=== PATIENT | male | born 1940 | race Caucasian/White ===

== ENCOUNTER 2018-12-31 22:17 | Inpatient (IN) | payer MEDICARE, OTHER ==
[2018-12-31 23:52] LABS: ABS Basophils 0.1 10^3/ul (0-0.2); ABS Eosinophils 0.1 10^3/ul (0-0.6); ABS Lymphocytes 1.8 10^3/ul (1.0-4.8); ABS Neutrophils 11.4 10^3/ul (1.5-7.7); ABS Nucleated RBC 0 10^3/ul; Eosinophil % 0.4 %; Hematocrit 44 % (36-46); Hemoglobin 14.8 g/dL (14.0-18.0); Lymphocyte % 12.8 %; Mean Corpuscular HGB Conc 33 g/dL (31-36); Mean Corpuscular Hemoglobin 30 pg (27-31); Mean Corpuscular Volume 91 fL (80-94); Mean Platelet Volume 8.3 fL (7.4-10.4); Nucleated Red Blood Cells % 0; Platelet Count 180 10^3/uL (150-450); Red Blood Count 4.89 10^6 /uL (4.18-5.48); Red Cell Distribution Width 15 % (10.5-15); White Blood Count 14.4 10^3/uL (3.5-10.8)
[2019-01-01 00:14] LABS: Albumin 4.4 g/dL (3.2-5.2); Albumin/Globulin Ratio 1.4 (1-3); BUN/Creatinine Ratio 20.4 (8-20); Calcium 9.5 mg/dL (8.6-10.3); EGFR Non-African American 70.2 (>60); Globulin 3.2 g/dL (2-4); Potassium 3.4 mmol/L (3.5-5.0); Total Bilirubin 1.3 mg/dL (0.2-1.0); Total Protein 7.6 g/dL (6.4-8.9)
[2019-01-01 00:15] LABS: Troponin I 0.01 ng/mL (<0.04)
[2019-01-01] MEDS ORDERED: NS 0.9% 1000 ML** 1,000 ML IV.FLUID IV ONE (01:11)
[2019-01-01] MEDS ORDERED: Piperacillin/Tazobac ADVAN(*) 3.375 GM in NS 0.9% 100 ML* 100 ML IVPB ONE ×2 (01:12→10:00)
--- NOTE | 2019-01-01 01:16 | ED ---
Respiratory - HPI Summary HPI Summary: This patient is a 78 year old male presenting to [facility] with a chief complaint of respiratory problems and falls since 2 days ago. His states he sounds congested and is worried he has pneumonia. He has Parkinsons disease and states he has fallen 5 times in the last 2 days. The patient reports coughing. Patients states he feels warm and may have a potential fever. - History of Current Complaint Chief Complaint: EDUpperRespComplaint Stated Complaint: FALL PER EMS Time Seen by Provider: 01/01/19 01:00 Hx Obtained From: Patient, Family/Finishing Inspector Pain Intensity: 0 Character: Cough (Nonproductive) Associated Signs and Symptoms: Nasal Congestion - Allergy/Home Medications Allergies/Adverse Reactions: Allergies Allergy/AdvReac Type Severity Reaction Status Date / Time Adhesive Tape [Paper Tape] Allergy Rash Verified 12/31/18 22:28 cephalexin [From Keflex] Allergy Rash Verified 12/31/18 22:28 levofloxacin [From Levaquin] Allergy Rash Verified 12/31/18 22:28 PMH/Surg Hx/FS Hx/Imm Hx Endocrine/Hematology History: Reports: Hx Diabetes - TYPE 2 Cardiovascular History: Reports: Hx Hypercholesterolemia, Hx Hypertension Denies: Hx Angina, Hx Coronary Artery Disease, Hx Myocardial Infarction, Hx Valvular Heart Disease Respiratory History: Denies: Hx Asthma, Hx Chronic Obstructive Pulmonary Disease (COPD) History: Denies: Hx Renal Disease - Surgical History Surgery Procedure, Year, and Place: CERVICAL STENOSIS SX Infectious Disease History: No Infectious Disease History: Denies: Traveled Outside the [place] in Last 30 Days - Family History Known Family History: Negative: Blood Disorder - Social History Alcohol Use: None Substance Use Type: Reports: None Smoking Status (MU): Former Smoker Type: Cigarettes Review of Systems Positive: Fever Positive: Nasal Discharge Positive: Cough All Other Systems Reviewed And Are Negative: Yes Physical Exam - Summary Physical Exam Summary: VITAL SIGNS: Reviewed. GENERAL: Patient is a well-developed and nourished MALE who is lying comfortable in the stretcher. Patient is not in any acute respiratory distress. HEAD AND FACE: No signs of trauma. No ecchymosis, hematomas or skull depressions. No sinus tenderness. EYES: PERRLA, EOMI x 2, No injected conjunctiva, no nystagmus. EARS: Hearing grossly intact. Ear canals and tympanic membranes are within normal limits. MOUTH: Oropharynx within normal limits. NECK: Supple, trachea is midline, no adenopathy, no JVD, no carotid bruit, no c- spine tenderness, neck with full ROM. CHEST: Symmetric, no tenderness at palpation LUNGS: Clear to auscultation bilaterally. No wheezing or crackles. Decreased breath sounds bilaterally. CVS: Regular rate and rhythm, S1 and S2 present, no murmurs or gallops appreciated. ABDOMEN: Soft, non-tender. No signs of distention. No rebound no guarding, and no masses palpated. Bowel sounds are normal. EXTREMITIES: FROM in all major joints, no edema, no cyanosis or clubbing. Static tremors in both hands. NEURO: Alert and oriented x 3. No acute neurological deficits. Speech is normal and follows commands. SKIN: Dry and warm Triage Information Reviewed: Yes Vital Signs On Initial Exam: Initial Vitals Temp Pulse Resp BP Pulse Ox 99.3 F 84 16 107/91 90 12/31/18 22:25 12/31/18 22:25 12/31/18 22:25 12/31/18 22:25 12/31/18 22:25 Vital Signs Reviewed: Yes Diagnostics - Vital Signs Vital Signs Temp Pulse Resp BP Pulse Ox 12/31/18 22:25 99.3 F 84 16 107/91 90 - Laboratory Lab Results: Lab Results 12/31/18 12/31/18 12/31/18 Range/Units 23:44 23:44 23:44 WBC 14.4 H (3.5-10.8) 10^3/uL RBC 4.89 (4.18-5.48) 10^6 /uL Hgb 14.8 (14.0-18.0) g/dL Hct 44 (36-46) % MCV 91 (80-94) fL MCH 30 (27-31) pg MCHC 33 (31-36) g/dL RDW 15 (10.5-15) % Plt Count 180 (150-450) 10^3/uL MPV 8.3 (7.4-10.4) fL Neut % (Auto) 79.0 % Lymph % (Auto) 12.8 % [place] % (Auto) 7.0 % Eos % (Auto) 0.4 % Baso % (Auto) 0.8 % Absolute Neuts (auto) 11.4 H (1.5-7.7) 10^3/ul Absolute Lymphs (auto) 1.8 (1.0-4.8) 10^3/ul Absolute Monos (auto) 1.0 H (0-0.8) 10^3/ul Absolute Eos (auto) 0.1 (0-0.6) 10^3/ul Absolute Basos (auto) 0.1 (0-0.2) 10^3/ul Absolute Nucleated RBC 0 10^3/ul Nucleated RBC % 0 Sodium 138 (135-145) mmol/L Potassium 3.4 L (3.5-5.0) mmol/L Chloride 101 (101-111) mmol/L Carbon Dioxide 27 (22-32) mmol/L Anion Gap 10 (2-11) mmol/L BUN 21 (6-24) mg/dL Creatinine 1.03 (0.67-1.17) mg/dL Est GFR ( Amer) 85.0 (>60) Est GFR (Non-Af Amer) 70.2 (>60) BUN/Creatinine Ratio 20.4 H (8-20) Glucose 235 H (70-100) mg/dL Lactic Acid 2.4 H* (0.5-2.0) mmol/L Calcium 9.5 (8.6-10.3) mg/dL Total Bilirubin 1.30 H (0.2-1.0) mg/dL AST 26 (13-39) U/L ALT 16 (7-52) U/L Alkaline Phosphatase 42 (34-104) U/L Troponin I 0.01 (<0.04) ng/mL B-Natriuretic Peptide (<=100) pg/mL Total Protein 7.6 (6.4-8.9) g/dL Albumin 4.4 (3.2-5.2) g/dL Globulin 3.2 (2-4) g/dL Albumin/Globulin Ratio 1.4 (1-3) 12/31/18 Range/Units 23:44 WBC (3.5-10.8) 10^3/uL RBC (4.18-5.48) 10^6 /uL Hgb (14.0-18.0) g/dL Hct (36-46) % MCV (80-94) fL MCH (27-31) pg MCHC (31-36) g/dL RDW (10.5-15) % Plt Count (150-450) 10^3/uL MPV (7.4-10.4) fL Neut % (Auto) % Lymph % (Auto) % [place] % (Auto) % Eos % (Auto) % Baso % (Auto) % Absolute Neuts (auto) (1.5-7.7) 10^3/ul Absolute Lymphs (auto) (1.0-4.8) 10^3/ul Absolute Monos (auto) (0-0.8) 10^3/ul Absolute Eos (auto) (0-0.6) 10^3/ul Absolute Basos (auto) (0-0.2) 10^3/ul Absolute Nucleated RBC 10^3/ul Nucleated RBC % Sodium (135-145) mmol/L Potassium (3.5-5.0) mmol/L Chloride (101-111) mmol/L Carbon Dioxide (22-32) mmol/L Anion Gap (2-11) mmol/L BUN (6-24) mg/dL Creatinine (0.67-1.17) mg/dL Est GFR ( Amer) (>60) Est GFR (Non-Af Amer) (>60) BUN/Creatinine Ratio (8-20) Glucose (70-100) mg/dL Lactic Acid (0.5-2.0) mmol/L Calcium (8.6-10.3) mg/dL Total Bilirubin (0.2-1.0) mg/dL AST (13-39) U/L ALT (7-52) U/L Alkaline Phosphatase (34-104) U/L Troponin I (<0.04) ng/mL B-Natriuretic Peptide 39 (<=100) pg/mL Total Protein (6.4-8.9) g/dL Albumin (3.2-5.2) g/dL Globulin (2-4) g/dL Albumin/Globulin Ratio (1-3) Result Diagrams: 12/31/18 23:44 12/31/18 23:44 Lab Statement: Any lab studies that have been ordered have been reviewed, and results considered in the medical decision making process. - Radiology CXR Radiology Interpretation Completed By: ED Physician Summary of Radiographic Findings: No acute process. Pending official radiologist report. - CT CTA Chest/Thorax CT Interpretation Completed By: Radiologist Summary of CT Findings: 1. No pulmonary embolus 2. Old granulomatous disease. 3. Coronary artery calcifications. 4. Fatty infiltration of the liver. 5. Cholelithiasis. 6. Status post cervical spine fusion surgery. ED Provider has reviewed this report. - EKG 0141 Cardiac Rate: NL - 78 BPM EKG Rhythm: Sinus Rhythm ST Segment: Normal Summary of EKG Findings: Right bundle branch block. Disposition - Course Course Of Treatment: This patient is a 78 year old male presenting to [facility] with a chief complaint of respiratory problems and falls since 2 days ago. His CTA chest was remarkable for pneumonia. Care was discussed with Dr. Cee and he agreed to admit the patient. This plan was discussed with the patient and he was agreeable with this plan. - Diagnoses Provider Diagnoses: Pneumonia - Physician Notifications Discussed Care Of Patient With: Narinder Cee - Hospitalist Time Discussed With Above Provider: 03:15 Instructed by Provider To: Admit As Inpatient Discharge - Sign-Out/Discharge Documenting (check all that apply): Patient Departure - Admission - Discharge Plan Condition: Stable Disposition: ADMITTED TO [facility] Referrals: Michael De Los Santos MD [Primary Care Provider] - - Attestation Statements Document Initiated by Scribe: Yes Documenting Scribe: Narinder Hinojosa Provider For Whom Jie is Documenting (Include Credential): Madeline Boateng MD Scribe Attestation: Narinder Ty scribed for Madeline Boateng MD on 01/01/19 at 0322. Status of Scribe Document: Ready
[2019-01-01 01:54] LABS: Activated Partial Thrombo Time 33.2 seconds (26.0-36.3)
[2019-01-01 02:00] LABS: C Reactive Protein 100.41 mg/L (<8.01)
[2019-01-01] MEDS ORDERED: Iodixanol* (CONTRAST) 320 MG/ML 100 ML SDV IV ONE (02:01)
[2019-01-01 02:03] LABS: Troponin I 0.01 ng/mL (<0.04)
[2019-01-01 03:27] LABS: Influenza A Molecular NEGATIVE (Negative); Influenza B Molecular NEGATIVE (Negative)
[2019-01-01 03:33] LABS: Urine Appearance Clear; Urine Bacteria Absent (Absent); Urine Bilirubin Negative (Negative); Urine Blood 1+ (Negative); Urine Color Yellow; Urine Glucose 2+(150 mg/dL) (Negative); Urine Ketones Trace (Negative); Urine Nitrite Negative (Negative); Urine Protein 1+(30 mg/dL) (Negative); Urine Red Blood Cell Absent (Absent); Urine Specific Gravity 1.038 (1.010-1.030); Urine Urobilinogen Negative (Negative); Urine White Blood Cell Absent (Absent)
[2019-01-01] MEDS ORDERED: NS 0.9% 1000 ML** 1,000 ML IV SCH (04:45)
[2019-01-01] MEDS ORDERED: Acetaminophen TAB* 325 MG PO PRN (04:49)
[2019-01-01] MEDS ORDERED: Ondansetron INJ* 2 MG/ML VIAL IV PRN (04:49)
[2019-01-01] MEDS ORDERED: Zosyn per Pharmacy* NOTE FOLLOW UP SCH (05:00)
[2019-01-01 05:25] LABS: ABS Basophils 0.1 10^3/ul (0-0.2); ABS Eosinophils 0.1 10^3/ul (0-0.6); ABS Lymphocytes 2.9 10^3/ul (1.0-4.8); ABS Monocytes 1.1 10^3/ul (0-0.8); ABS Neutrophils 7.5 10^3/ul (1.5-7.7); ABS Nucleated RBC 0 10^3/ul; Hematocrit 37 % (36-46); Hemoglobin 12.4 g/dL (14.0-18.0); Lymphocyte % 24.6 %; Mean Corpuscular HGB Conc 33 g/dL (31-36); Mean Corpuscular Hemoglobin 30 pg (27-31); Mean Corpuscular Volume 90 fL (80-94); Mean Platelet Volume 8.3 fL (7.4-10.4); Nucleated Red Blood Cells % 0.1; Platelet Count 140 10^3/uL (150-450); Red Blood Count 4.14 10^6 /uL (4.18-5.48); Red Cell Distribution Width 15 % (10.5-15); White Blood Count 11.7 10^3/uL (3.5-10.8)
[2019-01-01 05:41] LABS: BUN/Creatinine Ratio 21.1 (8-20); Calcium 8.3 mg/dL (8.6-10.3); EGFR African American 99.3 (>60)
[2019-01-01 05:47] LABS: CKMB ng/mL 4.5 ng/mL (0.6-6.3)
--- NOTE | 2019-01-01 07:10 | PN ---
Hospitalist Progress Note Date of Service: 01/01/[address] of head non-contrast for reported R. facial droop and pt report of R-sided weakness.
[2019-01-01] MEDS: RASAGILINE 0.5 MG PO SCH (08:05)
[2019-01-01] MEDS: LEVODOPA PO SCH ×3 (08:05→22:31)
[2019-01-01] MEDS: CARBIDOPA PO SCH ×3 (08:05→22:31)
[2019-01-01] MEDS: ZOSYN 3.375 GM Q8H per EXTENDED INFUSION IVPB SCH ×6 (08:10→22:40)
[2019-01-01] MEDS: amLODIPine TAB* 5 MG PO SCH (08:11)
[2019-01-01] MEDS: metFORMIN* 500 MG TAB PO SCH ×3 (08:11→16:58)
[2019-01-01] MEDS: Escitalopram * 10 MG TAB PO SCH (08:11)
[2019-01-01] MEDS: Enoxaparin(*) 40 MG/0.4 ML SYR SUBCUT SCH (08:12)
[2019-01-01] MEDS ORDERED: Hydrochlorothiazide TAB* 25 MG PO SCH (09:00)
[2019-01-01] MEDS: KCL 20 MEQ/100 ML IVPREMIX* 20 MEQ/100 ML BAG IV SCH ×3 (10:30→16:58)
--- NOTE | 2019-01-01 10:50 | HP ---
ADMISSION HISTORY AND PHYSICAL: DATE OF ADMISSION: 01/01/19 PRIMARY CARE PROVIDER: Dr. De Los Santos. HEALTHCARE PROXY: His . SOURCE OF INFORMATION: History obtained from interview with the patient, his , and his daughter. RELIABILITY: Good. CHIEF COMPLAINT: Weakness and falls. HISTORY OF PRESENT ILLNESS: This is a 78-year-old man with past medical history of Parkinson disorder who had been in his usual state of health until approximately 3 days prior, started having increased frequencies of falls and difficulty standing up after his falls. While he does have falls at baseline, a large notable change was that after falling to the floor, he was unable to stand up frequently and only able to stand with help from his . Over the last 3 days to 1 week, he has had increasing congestion, subjective fevers as well as cough that has been nonproductive for at least 3 days. He denies any nausea or vomiting. He has maintained a good appetite without lightheadedness, chest pain, shortness of breath, diarrhea, symptoms, although they have noted that his urine has been darker than usual. At baseline, he has not had any dyspnea. There have been no measured temperatures at home and he had no prolonged period of time down on the floor. PAST MEDICAL HISTORY: Includes: 1. Type 2 diabetes. 2. Permanent pacemaker secondary to Mobitz type II. 3. Hypertension. 4. Hyperlipidemia. 5. History of prostate cancer, status post radical prostatectomy. 6. Parkinson disease. 7. Unknown cervical surgery with cage. HOME MEDICATIONS: Reviewed from the patient's home medication list brought with him: 1. Metformin 500 mg 3 times a day. 2. Carbidopa/levodopa 25/100 two tabs 3 times a day. 3. Azilect 0.5 mg daily. 4. Hydrochlorothiazide 25 mg daily. 5. Escitalopram 10 mg daily. 6. Amlodipine 5 mg daily. 7. Lisinopril 40 mg daily. 8. Pravastatin 40 mg daily. ALLERGIES: To ADHESIVE TAPE, CEPHALEXIN, and LEVOFLOXACIN. FAMILY HISTORY: Unknown by the patient. SOCIAL HISTORY: Smoked for at least 20 years, quit in 2003. Very rare alcohol consumption. 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 REVIEW OF SYSTEMS: As per HPI; otherwise, all other systems are negative. PHYSICAL EXAMINATION GENERAL: Sitting up in bed, interactive, pleasant, in no apparent distress. VITAL SIGNS: In the emergency room, 107/91, heart rate is 84, respiratory rate is 16, he is 90% on room air, T-max 99.3. HEENT: Oropharynx is clear. He has moist mucous membranes. Sclerae are anicteric. LUNGS: His lungs have rales in his right base as well as in the left base extending up one-half of the way to the apex on the left. HEART: He has regular rate and rhythm without murmurs, rubs, or gallops. ABDOMEN: His abdomen is soft and nontender, but does appear distended. Positive bowel sounds. EXTREMITIES: Warm and well perfused without clubbing, cyanosis, or edema. NEUROLOGIC: He is alert and oriented x3. His cranial nerves are intact. He does have an apparent right facial droop which is noted to be chronic from his parents and does correct with smiling. He has no apparent anxiety, agitation, or depression. DIAGNOSTIC STUDIES AND LABORATORY DATA: Labs reviewed. Notable for lactic acid 2.4, decreased to 2.1 after 1 L of fluid. Total CK is 518. CRP 100. Glucose noted to be 235. White blood cell count is 14.4, 79% neutrophils. His urine is concentrated with protein, ketones, and blood. Negative flu. Data reviewed. CTA of his chest and thorax, impression: Increased haziness in the dependent portions of the lower lobes suggesting dependent congestion. ASSESSMENT AND PLAN: This is a 78-year-old man with past medical history of Parkinson disease, presenting with increased weakness and falls over the last several days in conjunction with cough and subjective fevers. 1. Increased weakness. Concern for pneumonia. I disagree with interpretation of the CAT scan. I am more concerned for left lower pneumonia in conjunction with rales auscultated on clinical exam and history of increased cough and weakness. Received Zosyn in the emergency room. I will continue Zosyn secondary to his allergies to both CEPHALOSPORINS and FLUOROQUINOLONES. Administer another liter of normal saline 150 cc per hour. Check Strep pneumo and Legionella urine antigens. 2. Lactic acidosis. Suspect in the setting of above. Repeat lactic acid. Continue fluids as indicated above. Additional fluids to be determined based on repeat lactic acid. 3. Rhabdomyolysis. Suspect in the setting of recurrent falls. Currently, not in dangerous range; however, repeat lactic acid check. 4. Diabetes. Continue home metformin. Add on hemoglobin A1c to assess baseline. Currently, I do not order standing fingerstick glucose checking; can add based on average home value or fasting with BMP. 5. Distended abdomen. Check abdomen 2 views to assess. 6. Parkinson's. Continue home Sinemet. Add on PT therapy, especially in the setting of increased weakness with acute illness. 7. Hypertension. Holding hydrochlorothiazide and lisinopril in the setting of lower blood pressure in the setting of infection. Restart when able. 8. Hyperlipidemia. Continue home medication with therapeutic exchange for atorvastatin. 9. DVT prophylaxis. Lovenox. [id number]/[facility] #: [id number] CHEL[place]
--- NOTE | 2019-01-01 14:07 | PN ---
Subjective Date of Service: 01/01/19 Interval History: Pt states that he feels better today. Family is at bedside and fill in information. Pt presented with increased falling. Family states that pt's legs would just give out. He is unable to lift himself from the floor, which is not uncommon, and is no longer able to help him back to his feet. Family also note that pt unable to lift self up from chair and stand. He has an increased productive cough and increased sleeping, although pt denies fatigue. Family reported dark urine yesterday, but urine has returned to normal color today. Pt denies chills , sweats, fatigue. Family state that patient rarely complains about anything and is often dishonest with answers, answering questions to satisfy person asking. It is noted that pt appears to have facial droop on L side. Family asked about this and state that he has had this for years. They are unsure when he developed this. Family and pt state that there is no focal neurological deficits, loss of sensation or muscle control to any other area of body. Pt appears to have a generalized weakness. Objective Active Medications: Acetaminophen (Tylenol Tab*) 650 mg PO Q4H PRN Amlodipine Besylate (Norvasc Tab*) 5 mg PO DAILY RAYMUNDO Carbidopa/Levodopa (Carbidopa-Levo Er 25-100 Tab) 2 tab PO TID RAYMUNDO Enoxaparin Sodium (Lovenox(*)) 40 mg SUBCUT Q24H RAYMUNDO Escitalopram Oxalate (Lexapro *) 10 mg PO DAILY RAYMUNDO Piperacillin Sod/Tazobactam (Sod 3.375 gm/ Sodium Chloride) 100 mls @ 25 mls/ hr IVPB Q8H RAYMUNDO Potassium Chloride (Potassium Chloride 20 Meq/100 Ml Ivpremix*) 20 meq in 100 mls @ 50 mls/hr IV Q2H RAYMUNDO Metformin HCl (Glucophage*) 500 mg PO 0800,1200,1700 RAYMUNDO Ondansetron HCl (Zofran Inj*) 4 mg IV Q4H PRN Pharmacy Consult (Zosyn Per Pharmacy*) 1 note FOLLOW UP .ZOSYN PER PHARMACY RAYMUNDO Pravastatin Sodium (Pravachol (Nf)) 10 mg PO 1700 RAYMUNDO Rasagiline (Azilect (Nf)) 0.5 mg PO DAILY RAYMUNDO Vital Signs: Temp Pulse Resp BP Pulse Ox 97.6 F 91 16 129/67 96 04/14/19 15:27 01/01/19 15:27 01/01/19 15:27 01/01/19 15:27 01/01/19 15:27 Oxygen Devices in Use Now: None Appearance: Pt is sitting in chair resting. Family is at side. He is cooperative and pleasant and appears to be in no acute distress. Eyes: No Scleral Icterus, PERRLA Ears/Nose/Mouth/Throat: Clear Oropharnyx, Mucous Membranes Moist, - - Poor dentition. Neck: NL Appearance and Movements; NL JVP, Trachea Midline Respiratory: Symmetrical Chest Expansion and Respiratory Effort, - - Crackles at L base; lung sounds distant on L. R CTA. Cardiovascular: RRR, - - Systolic murmur Extremities: No Clubbing, Cyanosis, - - B/l trace LE edema Neurological: Alert and Oriented x 3 Result Diagrams: 01/01/19 05:14 01/01/19 05:14 Additional Lab and Data: Lab Results 12/31/18 12/31/18 12/31/18 Range/Units 23:44 23:44 23:44 WBC 14.4 H (3.5-10.8) 10^3/uL RBC 4.89 (4.18-5.48) 10^6 /uL Hgb 14.8 (14.0-18.0) g/dL Hct 44 (36-46) % MCV 91 (80-94) fL MCH 30 (27-31) pg MCHC 33 (31-36) g/dL RDW 15 (10.5-15) % Plt Count 180 (150-450) 10^3/uL MPV 8.3 (7.4-10.4) fL Neut % (Auto) 79.0 % Lymph % (Auto) 12.8 % [place] % (Auto) 7.0 % Eos % (Auto) 0.4 % Baso % (Auto) 0.8 % Absolute Neuts (auto) 11.4 H (1.5-7.7) 10^3/ul Absolute Lymphs (auto) 1.8 (1.0-4.8) 10^3/ul Absolute Monos (auto) 1.0 H (0-0.8) 10^3/ul Absolute Eos (auto) 0.1 (0-0.6) 10^3/ul Absolute Basos (auto) 0.1 (0-0.2) 10^3/ul Absolute Nucleated RBC 0 10^3/ul Nucleated RBC % 0 Sodium 138 (135-145) mmol/L Potassium 3.4 L (3.5-5.0) mmol/L Chloride 101 (101-111) mmol/L Carbon Dioxide 27 (22-32) mmol/L Anion Gap 10 (2-11) mmol/L BUN 21 (6-24) mg/dL Creatinine 1.03 (0.67-1.17) mg/dL Est GFR ( Amer) 85.0 (>60) Est GFR (Non-Af Amer) 70.2 (>60) BUN/Creatinine Ratio 20.4 H (8-20) Glucose 235 H (70-100) mg/dL Lactic Acid 2.4 H* (0.5-2.0) mmol/L Calcium 9.5 (8.6-10.3) mg/dL Total Bilirubin 1.30 H (0.2-1.0) mg/dL AST 26 (13-39) U/L ALT 16 (7-52) U/L Alkaline Phosphatase 42 (34-104) U/L Troponin I 0.01 (<0.04) ng/mL B-Natriuretic Peptide (<=100) pg/mL Total Protein 7.6 (6.4-8.9) g/dL Albumin 4.4 (3.2-5.2) g/dL Globulin 3.2 (2-4) g/dL Albumin/Globulin Ratio 1.4 (1-3) 12/31/18 Range/Units 23:44 WBC (3.5-10.8) 10^3/uL RBC (4.18-5.48) 10^6 /uL Hgb (14.0-18.0) g/dL Hct (36-46) % MCV (80-94) fL MCH (27-31) pg MCHC (31-36) g/dL RDW (10.5-15) % Plt Count (150-450) 10^3/uL MPV (7.4-10.4) fL Neut % (Auto) % Lymph % (Auto) % [place] % (Auto) % Eos % (Auto) % Baso % (Auto) % Absolute Neuts (auto) (1.5-7.7) 10^3/ul Absolute Lymphs (auto) (1.0-4.8) 10^3/ul Absolute Monos (auto) (0-0.8) 10^3/ul Absolute Eos (auto) (0-0.6) 10^3/ul Absolute Basos (auto) (0-0.2) 10^3/ul Absolute Nucleated RBC 10^3/ul Nucleated RBC % Sodium (135-145) mmol/L Potassium (3.5-5.0) mmol/L Chloride (101-111) mmol/L Carbon Dioxide (22-32) mmol/L Anion Gap (2-11) mmol/L BUN (6-24) mg/dL Creatinine (0.67-1.17) mg/dL Est GFR ( Amer) (>60) Est GFR (Non-Af Amer) (>60) BUN/Creatinine Ratio (8-20) Glucose (70-100) mg/dL Lactic Acid (0.5-2.0) mmol/L Calcium (8.6-10.3) mg/dL Total Bilirubin (0.2-1.0) mg/dL AST (13-39) U/L ALT (7-52) U/L Alkaline Phosphatase (34-104) U/L Troponin I (<0.04) ng/mL B-Natriuretic Peptide 39 (<=100) pg/mL Total Protein (6.4-8.9) g/dL Albumin (3.2-5.2) g/dL Globulin (2-4) g/dL Albumin/Globulin Ratio (1-3) Microbiology and Other Data: Microbiology 01/01/19 02:50 Legionella Urinary Antigen - Final Urine Negative Legionella Antigen Streptococcus pneumoniae Ag Screen - Final Negative S. pneumo Antigen Assess/Plan/Problems-Billing Assessment: 78 yom with PMHx DMII, HTN, HLD, PPM d/t Mobitz II, Parkinson's who presents with generalized weakness, pna. - Patient Problems (1) LLL pneumonia Comment: -Productive cough, LLL rales, intermittent LG fever -Sputum negative for S. pneumo, Legionella -Continue Zosyn (2) Generalized weakness Comment: -DDx: Progression or Parkinson's, pna, rhabdo, multifactorial -PT/OT ordered -SW for ? SNF (3) Elevated CK-MB level Comment: -Pt denies muscle pain/sorenes; positive for generalized weakness -Will repeat CK-MB in a.m. (4) Diabetes mellitus Comment: -Morning glucose elevated, HA1c 7.9 -Will continue home medications and place on SS with FS (5) Hypokalemia Comment: -Repleted -Recheck in a.m. (6) Hypertension Comment: -WNL -Continue Amlodipine (7) Hyperlipidemia Comment: -Continue pravastatin (8) Parkinson's disease Comment: -Continue carbidopa/levodopa (9) DVT prophylaxis Comment: -Lovenox SQ (10) Full code status Status and Disposition: Inpatient. PT/OT, eval for SNF.
[2019-01-01] MEDS: CMCS: Pravastatin (NF) 20 MG TAB PO SCH (16:58)
[2019-01-01] MEDS ORDERED: Dextrose 50% Syringe 50 ML* 25 GM/50 ML SYRINGE IV PUSH PRN (19:08)
[2019-01-01] MEDS: Insulin LISPRO* 1 UNITS UNIT SUBCUT SCH (22:40)
[2019-01-02 07:11] LABS: ABS Basophils 0 10^3/ul (0-0.2); ABS Eosinophils 0.2 10^3/ul (0-0.6); ABS Lymphocytes 2.3 10^3/ul (1.0-4.8); ABS Monocytes 0.9 10^3/ul (0-0.8); ABS Neutrophils 6.4 10^3/ul (1.5-7.7); ABS Nucleated RBC 0 10^3/ul; Eosinophil % 2.1 %; Hematocrit 38 % (36-46); Hemoglobin 12.9 g/dL (14.0-18.0); Lymphocyte % 23.2 %; Mean Corpuscular HGB Conc 34 g/dL (31-36); Mean Corpuscular Hemoglobin 30 pg (27-31); Mean Corpuscular Volume 90 fL (80-94); Mean Platelet Volume 8.3 fL (7.4-10.4); Nucleated Red Blood Cells % 0.1; Platelet Count 148 10^3/uL (150-450); Red Blood Count 4.27 10^6 /uL (4.18-5.48); Red Cell Distribution Width 15 % (10.5-15); White Blood Count 9.9 10^3/uL (3.5-10.8)
[2019-01-02 07:13] LABS: BUN/Creatinine Ratio 13.6 (8-20); EGFR African American 101.9 (>60); EGFR Non-African American 84.2 (>60); Potassium 3.5 mmol/L (3.5-5.0)
[2019-01-02] MEDS ORDERED: NS 0.9% 100 ML* 100 ML ONE ×2 (08:06→17:00)
[2019-01-02] MEDS: Insulin LISPRO* 1 UNITS UNIT SUBCUT SCH ×4 (08:14→21:57)
[2019-01-02] MEDS: metFORMIN* 500 MG TAB PO SCH ×3 (08:14→17:02)
[2019-01-02] MEDS: ZOSYN 3.375 GM Q8H per EXTENDED INFUSION IVPB SCH ×4 (08:15→17:01)
[2019-01-02] MEDS: Enoxaparin(*) 40 MG/0.4 ML SYR SUBCUT SCH (08:15)
[2019-01-02] MEDS: amLODIPine TAB* 5 MG PO SCH (08:15)
[2019-01-02] MEDS: RASAGILINE 0.5 MG PO SCH (08:19)
[2019-01-02] MEDS: LEVODOPA PO SCH (08:21)
[2019-01-02] MEDS: CARBIDOPA PO SCH (08:21)
[2019-01-02] MEDS: Escitalopram * 10 MG TAB PO SCH (10:34)
[2019-01-02] MEDS: Carbidopa/Levodop CR 50/200(*) TAB.CR PO SCH ×2 (14:23→21:57)
--- NOTE | 2019-01-02 14:31 | PN ---
Subjective Date of Service: 01/02/19 Interval History: Pt states that he is feeling OK today. Cough has decreased significantly and no reported fevers, chills, sweats. Pt continues to have weakness. He is unable to make it to bathroom, and has been wearing depends for this. Also states that he has difficulty getting out of bed/pushing self up. He is able to stand unassisted. He is eating/drinking OK. He reports 1-2 bouts of diarrhea daily. Denies CP, SOB, abd pain, n/v/c, pain/swelling in LE. Objective Active Medications: Acetaminophen (Tylenol Tab*) 650 mg PO Q4H PRN Amlodipine Besylate (Norvasc Tab*) 5 mg PO DAILY [facility] Carbidopa/Levodopa (Sinemet Cr 50/200(*)) 1 tab.cr PO TID [facility] Dextrose (D50w Syringe 50 Ml*) 12.5 gm IV PUSH .FOR FS < 60 - SS PRN Enoxaparin Sodium (Lovenox(*)) 40 mg SUBCUT Q24H [facility] Escitalopram Oxalate (Lexapro *) 10 mg PO DAILY [facility] Piperacillin Sod/Tazobactam (Sod 3.375 gm/ Sodium Chloride) 100 mls @ 25 mls/ hr IVPB Q8H [facility] Insulin Human Lispro (Humalog*) 0 units SUBCUT ACHS [facility]; Protocol Metformin HCl (Glucophage*) 500 mg PO 0800,1200,1700 [facility] Ondansetron HCl (Zofran Inj*) 4 mg IV Q4H PRN Pharmacy Consult (Zosyn Per Pharmacy*) 1 note FOLLOW UP .ZOSYN PER PHARMACY [facility] Pravastatin Sodium (Pravachol (Nf)) 10 mg PO 1700 [facility] Rasagiline (Azilect (Nf)) 0.5 mg PO DAILY [facility] Vital Signs: Temp Pulse Resp BP Pulse Ox 97.9 F 76 18 128/64 96 01/02/19 11:55 01/02/19 11:55 01/02/19 11:55 01/02/19 11:55 01/02/19 11:55 Oxygen Devices in Use Now: None Appearance: Pt is sitting in chair. He is in no acute distress and appears well. Eyes: No Scleral Icterus, PERRLA Ears/Nose/Mouth/Throat: Clear Oropharnyx, Mucous Membranes Moist, - - Poor dentition Neck: NL Appearance and Movements; NL JVP, Trachea Midline Respiratory: Symmetrical Chest Expansion and Respiratory Effort, - - Rales LLL Cardiovascular: NL Sounds; No Murmurs; No JVD, RRR, No Edema Abdominal: NL Sounds; No Tenderness; No Distention, No Hepatosplenomegaly Lymphatic: No Cervical Adenopathy Extremities: No Clubbing, Cyanosis, - - Trace edema b/l LE Neurological: Alert and Oriented x 3 Result Diagrams: 01/02/19 06:41 01/02/19 06:41 Additional Lab and Data: Lab Results 12/31/18 12/31/18 12/31/18 Range/Units 23:44 23:44 23:44 WBC 14.4 H (3.5-10.8) 10^3/uL RBC 4.89 (4.18-5.48) 10^6 /uL Hgb 14.8 (14.0-18.0) g/dL Hct 44 (36-46) % MCV 91 (80-94) fL MCH 30 (27-31) pg MCHC 33 (31-36) g/dL RDW 15 (10.5-15) % Plt Count 180 (150-450) 10^3/uL MPV 8.3 (7.4-10.4) fL Neut % (Auto) 79.0 % Lymph % (Auto) 12.8 % [place] % (Auto) 7.0 % Eos % (Auto) 0.4 % Baso % (Auto) 0.8 % Absolute Neuts (auto) 11.4 H (1.5-7.7) 10^3/ul Absolute Lymphs (auto) 1.8 (1.0-4.8) 10^3/ul Absolute Monos (auto) 1.0 H (0-0.8) 10^3/ul Absolute Eos (auto) 0.1 (0-0.6) 10^3/ul Absolute Basos (auto) 0.1 (0-0.2) 10^3/ul Absolute Nucleated RBC 0 10^3/ul Nucleated RBC % 0 Sodium 138 (135-145) mmol/L Potassium 3.4 L (3.5-5.0) mmol/L Chloride 101 (101-111) mmol/L Carbon Dioxide 27 (22-32) mmol/L Anion Gap 10 (2-11) mmol/L BUN 21 (6-24) mg/dL Creatinine 1.03 (0.67-1.17) mg/dL Est GFR ( Amer) 85.0 (>60) Est GFR (Non-Af Amer) 70.2 (>60) BUN/Creatinine Ratio 20.4 H (8-20) Glucose 235 H (70-100) mg/dL Lactic Acid 2.4 H* (0.5-2.0) mmol/L Calcium 9.5 (8.6-10.3) mg/dL Total Bilirubin 1.30 H (0.2-1.0) mg/dL AST 26 (13-39) U/L ALT 16 (7-52) U/L Alkaline Phosphatase 42 (34-104) U/L Troponin I 0.01 (<0.04) ng/mL B-Natriuretic Peptide (<=100) pg/mL Total Protein 7.6 (6.4-8.9) g/dL Albumin 4.4 (3.2-5.2) g/dL Globulin 3.2 (2-4) g/dL Albumin/Globulin Ratio 1.4 (1-3) 12/31/18 Range/Units 23:44 WBC (3.5-10.8) 10^3/uL RBC (4.18-5.48) 10^6 /uL Hgb (14.0-18.0) g/dL Hct (36-46) % MCV (80-94) fL MCH (27-31) pg MCHC (31-36) g/dL RDW (10.5-15) % Plt Count (150-450) 10^3/uL MPV (7.4-10.4) fL Neut % (Auto) % Lymph % (Auto) % [place] % (Auto) % Eos % (Auto) % Baso % (Auto) % Absolute Neuts (auto) (1.5-7.7) 10^3/ul Absolute Lymphs (auto) (1.0-4.8) 10^3/ul Absolute Monos (auto) (0-0.8) 10^3/ul Absolute Eos (auto) (0-0.6) 10^3/ul Absolute Basos (auto) (0-0.2) 10^3/ul Absolute Nucleated RBC 10^3/ul Nucleated RBC % Sodium (135-145) mmol/L Potassium (3.5-5.0) mmol/L Chloride (101-111) mmol/L Carbon Dioxide (22-32) mmol/L Anion Gap (2-11) mmol/L BUN (6-24) mg/dL Creatinine (0.67-1.17) mg/dL Est GFR ( Amer) (>60) Est GFR (Non-Af Amer) (>60) BUN/Creatinine Ratio (8-20) Glucose (70-100) mg/dL Lactic Acid (0.5-2.0) mmol/L Calcium (8.6-10.3) mg/dL Total Bilirubin (0.2-1.0) mg/dL AST (13-39) U/L ALT (7-52) U/L Alkaline Phosphatase (34-104) U/L Troponin I (<0.04) ng/mL B-Natriuretic Peptide 39 (<=100) pg/mL Total Protein (6.4-8.9) g/dL Albumin (3.2-5.2) g/dL Globulin (2-4) g/dL Albumin/Globulin Ratio (1-3) Microbiology and Other Data: Microbiology 01/01/19 02:50 Legionella Urinary Antigen - Final Urine Negative Legionella Antigen Streptococcus pneumoniae Ag Screen - Final Negative S. pneumo Antigen Assess/Plan/Problems-Billing Assessment: 78 yom with PMHx DMII, HTN, HLD, PPM d/t Mobitz II, Parkinson's who presents with generalized weakness, pna. - Patient Problems (1) LLL pneumonia Comment: -Presented with productive cough, LLL rales, intermittent LG fever, leukocytosis ; cough, fever, leukocytosis improved; cont with rales -Sputum negative for S. pneumo, Legionella -Transition from IV Zosyn to PO Augmentin, Azithro tomorrow (2) Generalized weakness Comment: -DDx: Progression of Parkinson's, pna, rhabdo, multifactorial -PT/OT ordered -Referrals sent [facility] (3) Elevated CK-MB level Comment: -Pt denies muscle pain/sorenes; positive for generalized weakness -Repeat CK-MB mildly decreased from initial (4) Diabetes mellitus Comment: -HA1c 7.9 -Will continue home medications and SS with FS (5) Hypokalemia Comment: -Resolved -Continue to monitor (6) Hypertension Comment: -WNL -Continue Amlodipine (7) Hyperlipidemia Comment: -Continue pravastatin (8) Parkinson's disease Comment: -Continue carbidopa/levodopa (9) DVT prophylaxis Comment: -Lovenox SQ (10) Full code status Status and Disposition: Inpatient. PT/OT, eval for SNF.
[2019-01-02] MEDS: Lactobacillus Acidophilus* 1 TAB PO SCH (17:02)
[2019-01-02] MEDS: CMCS: Pravastatin (NF) 20 MG TAB PO SCH (17:16)
[2019-01-02] MEDS ORDERED: hydrALAZINE IV* 20 MG/ML VIAL IV SLOW PU PRN (19:36)
[2019-01-03 07:18] LABS: BUN/Creatinine Ratio 14.1 (8-20); Calcium 9.2 mg/dL (8.6-10.3); EGFR African American 96.8 (>60); Potassium 3.6 mmol/L (3.5-5.0)
[2019-01-03] MEDS: metFORMIN* 500 MG TAB PO SCH ×3 (08:25→17:27)
[2019-01-03] MEDS: Insulin LISPRO* 1 UNITS UNIT SUBCUT SCH ×4 (08:25→21:48)
[2019-01-03] MEDS: Amoxicillin/Clavulanate TAB* 875 MG PO SCH ×2 (08:26→21:36)
[2019-01-03] MEDS: Azithromycin TAB* 250 MG PO SCH (08:26)
[2019-01-03] MEDS: amLODIPine TAB* 5 MG PO SCH (08:26)
[2019-01-03] MEDS: Enoxaparin(*) 40 MG/0.4 ML SYR SUBCUT SCH (08:26)
[2019-01-03] MEDS: Lactobacillus Acidophilus* 1 TAB PO SCH (08:26)
[2019-01-03] MEDS: Escitalopram * 10 MG TAB PO SCH (08:26)
[2019-01-03] MEDS: Carbidopa/Levodop CR 50/200(*) TAB.CR PO SCH ×3 (08:27→21:36)
[2019-01-03] MEDS: CMC:Rasagiline (NF) 1 MG TAB PO SCH (08:27)
[2019-01-03] MEDS: CMCS: Pravastatin (NF) 20 MG TAB PO SCH (17:27)
[2019-01-03] MEDS ORDERED: Atorvastatin* 10 MG TAB PO ONE (18:00)
--- NOTE | 2019-01-03 19:30 | PN ---
Subjective Date of Service: 01/03/19 Interval History: VS: WNL Labs: Improved leukocytosis, BMP WNL Pt reports he is walking to with walker; he uses a cane at home. He has increased sleep. Diarrhea continues, having had approximately 2 bouts of runny stool today. He is eating and drinking well. He denies CP, SOB, abd pain, n/v/ c, pain in calves. He states he has a slight cough. states that he appears confused at times. She states that this has been present for 1-2 months and that it occurs at various times throughout the day. She is unable to explain, but states "it's just not him" and "like he's not comprehending what you're saying to him or the situation." She states that he was confused about why he was here at points during his stay and would forget that he was going to [facility] instead of home. When questioned, he appears to remember everything. reminds me that this is transient, but he appears to be oriented and without confusion at the time of this visit. Objective Active Medications: Acetaminophen (Tylenol Tab*) 650 mg PO Q4H PRN Amlodipine Besylate (Norvasc Tab*) 5 mg PO DAILY [facility] Amoxicillin/Clavulanate Potassium (Augmentin Tab*) 875 mg PO BID [facility] Atorvastatin Calcium (Lipitor*) 10 mg PO 1700 [facility] Azithromycin (Zithromax Tab*) 500 mg PO DAILY [facility] Carbidopa/Levodopa (Sinemet Cr 50/200(*)) 1 tab.cr PO TID [facility] Dextrose (D50w Syringe 50 Ml*) 12.5 gm IV PUSH .FOR FS < 60 - SS PRN Enoxaparin Sodium (Lovenox(*)) 40 mg SUBCUT Q24H [facility] Escitalopram Oxalate (Lexapro *) 10 mg PO DAILY [facility] Hydralazine HCl (Apresoline Iv*) 5 mg IV SLOW PU Q6H PRN Insulin Human Lispro (Humalog*) 0 units SUBCUT ACHS [facility]; Protocol Lactobacillus Rhamnosus (Lactobacillus Acidophilus*) 1 tab PO DAILY [facility] Metformin HCl (Glucophage*) 500 mg PO 0800,1200,1700 [facility] Ondansetron HCl (Zofran Inj*) 4 mg IV Q4H PRN Pharmacy Consult (Zosyn Per Pharmacy*) 1 note FOLLOW UP .ZOSYN PER PHARMACY [facility] Rasagiline (Azilect (Nf)) 0.5 mg PO DAILY [facility] Vital Signs: Temp Pulse Resp BP Pulse Ox 98.2 F 69 16 126/64 95 01/03/19 15:31 01/03/19 15:31 01/03/19 15:31 01/03/19 15:31 01/03/19 15:31 Oxygen Devices in Use Now: None Appearance: Pt is sitting in bed with LE elevated. He is asleep upon entering, but wakes and interacts when spoken to. He appears well. Eyes: No Scleral Icterus, PERRLA Ears/Nose/Mouth/Throat: Clear Oropharnyx, Mucous Membranes Moist, - - Poor dentition. L lower facial droop still present, has had for years. Neck: NL Appearance and Movements; NL JVP, Trachea Midline Respiratory: Symmetrical Chest Expansion and Respiratory Effort, Clear to Auscultation - No wheeze, rubs, rhonchi Cardiovascular: NL Sounds; No Murmurs; No JVD, RRR, No Edema Abdominal: NL Sounds; No Tenderness; No Distention, No Hepatosplenomegaly Extremities: No Clubbing, Cyanosis, - - Trace b/l LE edema Neurological: Alert and Oriented x 3 Result Diagrams: 01/02/19 06:41 01/03/19 06:34 Additional Lab and Data: Lab Results 12/31/18 12/31/18 12/31/18 Range/Units 23:44 23:44 23:44 WBC 14.4 H (3.5-10.8) 10^3/uL RBC 4.89 (4.18-5.48) 10^6 /uL Hgb 14.8 (14.0-18.0) g/dL Hct 44 (36-46) % MCV 91 (80-94) fL MCH 30 (27-31) pg MCHC 33 (31-36) g/dL RDW 15 (10.5-15) % Plt Count 180 (150-450) 10^3/uL MPV 8.3 (7.4-10.4) fL Neut % (Auto) 79.0 % Lymph % (Auto) 12.8 % [place] % (Auto) 7.0 % Eos % (Auto) 0.4 % Baso % (Auto) 0.8 % Absolute Neuts (auto) 11.4 H (1.5-7.7) 10^3/ul Absolute Lymphs (auto) 1.8 (1.0-4.8) 10^3/ul Absolute Monos (auto) 1.0 H (0-0.8) 10^3/ul Absolute Eos (auto) 0.1 (0-0.6) 10^3/ul Absolute Basos (auto) 0.1 (0-0.2) 10^3/ul Absolute Nucleated RBC 0 10^3/ul Nucleated RBC % 0 Sodium 138 (135-145) mmol/L Potassium 3.4 L (3.5-5.0) mmol/L Chloride 101 (101-111) mmol/L Carbon Dioxide 27 (22-32) mmol/L Anion Gap 10 (2-11) mmol/L BUN 21 (6-24) mg/dL Creatinine 1.03 (0.67-1.17) mg/dL Est GFR ( Amer) 85.0 (>60) Est GFR (Non-Af Amer) 70.2 (>60) BUN/Creatinine Ratio 20.4 H (8-20) Glucose 235 H (70-100) mg/dL Lactic Acid 2.4 H* (0.5-2.0) mmol/L Calcium 9.5 (8.6-10.3) mg/dL Total Bilirubin 1.30 H (0.2-1.0) mg/dL AST 26 (13-39) U/L ALT 16 (7-52) U/L Alkaline Phosphatase 42 (34-104) U/L Troponin I 0.01 (<0.04) ng/mL B-Natriuretic Peptide (<=100) pg/mL Total Protein 7.6 (6.4-8.9) g/dL Albumin 4.4 (3.2-5.2) g/dL Globulin 3.2 (2-4) g/dL Albumin/Globulin Ratio 1.4 (1-3) 12/31/18 Range/Units 23:44 WBC (3.5-10.8) 10^3/uL RBC (4.18-5.48) 10^6 /uL Hgb (14.0-18.0) g/dL Hct (36-46) % MCV (80-94) fL MCH (27-31) pg MCHC (31-36) g/dL RDW (10.5-15) % Plt Count (150-450) 10^3/uL MPV (7.4-10.4) fL Neut % (Auto) % Lymph % (Auto) % [place] % (Auto) % Eos % (Auto) % Baso % (Auto) % Absolute Neuts (auto) (1.5-7.7) 10^3/ul Absolute Lymphs (auto) (1.0-4.8) 10^3/ul Absolute Monos (auto) (0-0.8) 10^3/ul Absolute Eos (auto) (0-0.6) 10^3/ul Absolute Basos (auto) (0-0.2) 10^3/ul Absolute Nucleated RBC 10^3/ul Nucleated RBC % Sodium (135-145) mmol/L Potassium (3.5-5.0) mmol/L Chloride (101-111) mmol/L Carbon Dioxide (22-32) mmol/L Anion Gap (2-11) mmol/L BUN (6-24) mg/dL Creatinine (0.67-1.17) mg/dL Est GFR ( Amer) (>60) Est GFR (Non-Af Amer) (>60) BUN/Creatinine Ratio (8-20) Glucose (70-100) mg/dL Lactic Acid (0.5-2.0) mmol/L Calcium (8.6-10.3) mg/dL Total Bilirubin (0.2-1.0) mg/dL AST (13-39) U/L ALT (7-52) U/L Alkaline Phosphatase (34-104) U/L Troponin I (<0.04) ng/mL B-Natriuretic Peptide 39 (<=100) pg/mL Total Protein (6.4-8.9) g/dL Albumin (3.2-5.2) g/dL Globulin (2-4) g/dL Albumin/Globulin Ratio (1-3) Microbiology and Other Data: Microbiology 01/01/19 02:50 Legionella Urinary Antigen - Final Urine Negative Legionella Antigen Streptococcus pneumoniae Ag Screen - Final Negative S. pneumo Antigen Assess/Plan/Problems-Billing Assessment: 78 yom with PMHx DMII, HTN, HLD, PPM d/t Mobitz II, Parkinson's who presents with generalized weakness, pna. - Patient Problems (1) LLL pneumonia Comment: -Presented with productive cough, LLL rales, intermittent LG fever, leukocytosis ; cough, fever, leukocytosis, pulmonary exam improved -Sputum negative for S. pneumo, Legionella -Continue PO Augmentin, Azithro (Day 1) (2) Generalized weakness Comment: -DDx: Progression of Parkinson's, pna, rhabdo, multifactorial -PT/OT ordered -Referrals sent [facility] (3) Intermittent confusion Comment: - notes intermittent confusion prior to admission. Not witnessed at the time by this writer editor, but will continue to monitor. No new rx, CT head WNL. DDX : infectious, progression of PD (4) Elevated CK-MB level Comment: -Pt denies muscle pain/sorenes; positive for generalized weakness -Repeat CK-MB mildly decreased from initial (5) Diabetes mellitus Comment: -HA1c 7.9; adequately controlled while in hospital -Will continue home medications and SS with FS (6) Hypertension Comment: -WNL -Continue Amlodipine (7) Hyperlipidemia Comment: -Continue pravastatin (8) Parkinson's disease Comment: -Continue carbidopa/levodopa (9) DVT prophylaxis Comment: -Lovenox SQ (10) Full code status Status and Disposition: Inpatient. PT/OT, eval for SNF.
[2019-01-04] MEDS: Azithromycin TAB* 250 MG PO SCH (09:22)
[2019-01-04] MEDS: metFORMIN* 500 MG TAB PO SCH ×2 (09:22→13:18)
[2019-01-04] MEDS: Lactobacillus Acidophilus* 1 TAB PO SCH (09:22)
[2019-01-04] MEDS: Amoxicillin/Clavulanate TAB* 875 MG PO SCH (09:22)
[2019-01-04] MEDS: Insulin LISPRO* 1 UNITS UNIT SUBCUT SCH ×2 (09:23→13:18)
[2019-01-04] MEDS: Escitalopram * 10 MG TAB PO SCH (09:23)
[2019-01-04] MEDS: amLODIPine TAB* 5 MG PO SCH (09:23)
[2019-01-04] MEDS: Carbidopa/Levodop CR 50/200(*) TAB.CR PO SCH ×2 (09:27→13:18)
[2019-01-04] MEDS: Enoxaparin(*) 40 MG/0.4 ML SYR SUBCUT SCH (09:28)
[2019-01-04] MEDS: CMC:Rasagiline (NF) 1 MG TAB PO SCH (09:28)
[2019-01-04] MEDS ORDERED: Lisinopril TAB* 10 MG PO SCH (09:45)
[2019-01-04] MEDS ORDERED: Hydrochlorothiazide TAB* 25 MG PO SCH (10:00)
[2019-01-04 10:11] VITALS: BP 129/76
--- NOTE | 2019-01-04 13:28 | DS ---
CC: Dr. Michael De Los Santos; Dr. Eren Boland* DATE OF ADMISSION: 01/01/2019. DATE OF DISCHARGE: 01/04/2019. PRIMARY CARE PHYSICIAN: Dr. Michael De Los Santos. NEUROLOGIST: Dr. Eren Boland. ATTENDING PHYSICIAN: Dr. Edgar Vergara* (dictated by MIRA Colon). PRIMARY DIAGNOSES: 1. Left lower lobe pneumonia. 2. Increased generalized weakness. STUDIES WHILE IN THE HOSPITAL: 1. Chest x-ray, 12/31/2018: Impression: No evidence for active cardiopulmonary disease. 2. CTA chest, 01/01/2019: Impression: No pulmonary embolus. Old granulomatous disease. Coronary artery calcifications. Fatty infiltration of the liver. Cholelithiasis. Status post cervical spine fusion surgery. Left cardiac pacemaker. 3. Abdominal x-ray, 01/01/2019: Impression: No evidence for obstruction. Cholelithiasis. 4. Electrocardiogram, 01/01/2019: Interpretation: Sinus rhythm normal. Right bundle branch block. 5. Brain CT, 01/01/2019: No evidence for gross acute infarct, mass effect or hemorrhage. Stable ventriculomegaly. DISCHARGE MEDICATIONS: Home medications: 1. Lisinopril 40 mg p.o. daily. 2. Hydrochlorothiazide 25 mg p.o. daily. 3. Glipizide 2.5 mg p.o. b.i.d. 4. Pravastatin 40 mg p.o. at bedtime. 5. Escitalopram Oxalate 10 mg p.o. daily. 6. Amlodipine Besylate 5 mg p.o. daily. 7. Carbidopa/Levodopa 25/100 1.5 tabs p.o. t.i.d. 8. Metformin 500 mg p.o. t.i.d. New home medications: 1. Amoxicillin/Clavulanate 875 mg p.o. b.i.d. 2. Azithromycin 250 mg p.o. b.i.d. 3. Lactobacillus Acidophilus one tab p.o. b.i.d. prn diarrhea. HISTORY OF PRESENT ILLNESS/HOSPITAL COURSE: Mr. Clemente is a 78-year-old male with a past medical history of Parkinson's, type 2 diabetes, hypertension, hyperlipidemia, and permanent pacemaker secondary to Mobitz type 2 who presented to the ER late on December 31 due to increased frequency of falls and difficulty standing up after falls. This had been happening for approximately three days prior. It is noted that he does have a history of falls at baseline and that he has difficulty standing up at baseline, but his falls have increased over the last three to seven days. He was also noted to have some congestion, cough, and subjective fevers. In the ER, the patient received a full work-up and was admitted under the Hospitalist Service. Although his CT scan and chest x-ray showed no concern for infiltrate, there was a haziness in the left lower lobe that was noted and correlated with possible pneumonia. The patient was treated with Zosyn at first and then due to ALLERGY TO CEPHALOSPORINS AND FLUOROQUINOLONES, he was then transitioned to Azithromycin and Augmentin. Throughout his stay, he improved and at the time of discharge, the patient states he continues to have a cough but that it is nonproductive and much less frequent than in the past. He denies fevers, chills , shortness of breath, or wheezing. The patient was also admitted due to increased weakness. Physical therapy and occupational therapy were ordered for the patient. Physical Therapy recommended acute rehab due to decreased strength, gait deviation, and impaired balance. Occupational Therapy also recommended skilled services stating that he has decreased independence for ADL's and IADL's. It is noted that the patient' s CKMB was within normal limits, but that his total creatinine kinase was elevated. This was rechecked the following day and was noted to be trending downward. It is likely that the patient's generalized weakness is multifactorial and includes progression of Parkinson's and recent diagnosis of pneumonia. Physical therapy and occupational therapy will be obtained when the patient discharges to [facility]. At the time of discharge, the patient denies chest pain, shortness of breath, abdominal pain, nausea, vomiting, diarrhea, constipation, pain or swelling in the extremities. He denies anxiety or depression. He continues to complain of a slight cough. Mr. Clemente is stable for discharge. PHYSICAL EXAMINATION: General: Mr. Clemente is a well-developed, well-nourished , overweight, elderly male who is sitting in his chair with his lower extremities on the ground. He appears well, he appears his stated age. Vital signs are temperature 97.1 temporal, heart rate 78, respiratory rate 16, oxygen saturation 95 percent on room air, blood pressure 129/76. HEENT: Visual avelar are grossly intact. Pupils are equally round and reactive to light. Extraocular movements are intact. Sclerae is without icterus. Hearing is grossly intact. Dentition is poor. Oral mucus membranes are moist, there are no lesions. The pharynx is clear. The patient is noted to have facial asymmetry with the left side lagging which is his baseline for many years. Neck : Full range of motion. Thyroid not palpable. No lymphadenopathy. Cardiovascular: Regular rate and rhythm with S1, S2 present. There are no murmurs, rubs, or gallops. There is no JVD. Respiratory: Symmetrical chest expansion, no use of accessory muscles. Lungs are clear to auscultation. There is no rhonchi, wheeze, or rubs. Abdomen: Obese. Bowel sounds are normoactive throughout. The abdomen is soft, nontender to palpation. There is no hepatosplenomegaly. Musculoskeletal: Full range of motion with no pain or deformities. Extremities: Skin is warm and smooth bilaterally. There is no clubbing or cyanosis. There is trace pedal edema. Radial and pedal pulses are palpable. Neuro: The patient is awake. He is alert and oriented times three. He is able to move all of his extremities. Motor strength is 5/5 in upper and lower extremities. He has a somewhat unsteady gait and often requires support when walking. DISCHARGE PLAN: Mr. Clemente will be discharged to [facility]. Medications as above. ACTIVITY: As tolerated. Continue PT/OT. DIET: Heart-healthy. EDUCATION: 1. Follow-up with primary care physician in four to seven days. 2. Follow-up with Dr. Boland as scheduled. 3. Continue Augmentin twice daily; next dose tonight at 2100. 4. Continue Azithromycin once daily; next dose tomorrow morning. 5. Continue probiotic twice daily as needed for diarrhea. 6. Return to the ER or the nearest hospital if you experience any worsening of symptoms, shortness of breath, lightheadedness, dizziness, chest discomfort, high fever, chills, night sweats, loss of consciousness, or any other worrisome signs or symptoms. This is a summarized report of a complex medical history and hospital stay. For further details, please see the entire medical record. TIME SPENT: Approximately 35 minutes were spent on this discharge, greater than half of that time was spent [id number] with the patient discussing discharge plans and instructions. MIRA BELTRAN [id number]/[facility] #: [id number] [place]
[2019-01-04] MEDS ORDERED: Atorvastatin* 10 MG TAB PO SCH (17:00)
== END 2019-01-04 14:22 | DRG 194 ==
LOC: ED 22:17 → MEDTELE 01-01 04:49 → MED 01-01 18:55
PROVIDERS: ADMIT Internal Medicine; ATTEND Internal Medicine
DX: J18.0 Bronchopneumonia, unspecified organism (principal); E87.2 Acidosis; E11.9 Type 2 diabetes mellitus without complications; I10 Essential (primary) hypertension; E78.00 Pure hypercholesterolemia, unspecified; T79.6XXA Traumatic ischemia of muscle, initial encounter; E78.5 Hyperlipidemia, unspecified; G20 Parkinson's disease; E87.6 Hypokalemia; W19.XXXA Unspecified fall, initial encounter; R29.810 Facial weakness; F07.81 Postconcussional syndrome; K76.0 Fatty (change of) liver, not elsewhere classified; K80.20 Calculus of gallbladder without cholecystitis without obstruction; E66.3 Overweight; I45.10 Unspecified right bundle-branch block; D71 Functional disorders of polymorphonuclear neutrophils; Z88.1 Allergy status to other antibiotic agents; Z87.891 Personal history of nicotine dependence; Z95.0 Presence of cardiac pacemaker; Z88.8 Allergy status to other drugs, medicaments and biological substances; Z85.46 Personal history of malignant neoplasm of prostate; Z90.79 Acquired absence of other genital organ(s); Z79.84 Long term (current) use of oral hypoglycemic drugs; Z68.29 Body mass index [BMI] 29.0-29.9, adult
CPT/HCPCS: 36415; 70450; 71046; 71275; 74019; 80048; 80053; 81003; 81015; 82550; 82553; 83036; 83605; 83880; 84484; 85025; 85610; 85730; 86140; 87040; 87899; 93005; 99284; A9270-GY; G8987-GO-CK; G8988-GO-CI; J1650; J2543; J3480; Q9967

== ENCOUNTER 2019-07-27 11:39 | Inpatient (IN) | payer MEDICARE, OTHER ==
--- OUTSIDE RECORDS SUMMARY | 2019-07-27 11:51 | XMS REPORT | Continuity of Care Document ---
:1940 External Reference #:[id number] Author Name Sergio Silverman M.D. (transmitted by agent of provider Olga Trujillo) Address [address] [place] [id number] Care Team Providers Name Role Phone Michael De Los Santos MD - Family Medicine Care Team Information Consulting Utility Forester [phone] Problems Active Problems Provider Date Mobitz type II atrioventricular block Sergio Silverman M.D. Onset: Cardiac pacemaker in situ Sergio Silverman M.D. Onset: 08/10/2011 Benign essential hypertension Sergio Silverman M.D. Onset: 08/10/2011 Hyperlipidemia Sergio Silverman M.D. Onset: 08/10/2011 Right bundle branch block Sergio Silverman M.D. Onset: 08/10/2011 Essential hypertension Sergio Silverman M.D. Onset: 07/04/2015 Social History Type Date Description Comments Sex Unknown Tobacco Use Start: Unknown End: Former Cigarette Smoker stoppped in 2004 Unknown 2 Packs Daily ETOH Use Denies alcohol use Tobacco Use Start: Unknown End: Patient is a former Unknown smoker Recreational Drug Use Denies Drug Use Smoking Status Reviewed: 06/26/19 Patient is a former smoker Exercise Type/Frequency Exercises sporadically Allergies, Adverse Reactions, Alerts Active Allergies Reaction Severity Comments Date Levaquin Urticaria 02/12/2009 Adhesives rash 02/12/2009 Morphine sweating 06/12/2010 Keflex blistering of skin 06/12/2010 Medications Active Medications SIG Qnty Indications Ordering Date Provider Glipizide ER 1 by mouth 90tabs Eren Reyes 03/21/2019 5mg Tablets ER 24HR twice a day Xiomara Boland Donepezil HCL 1 every day 90tabs G31.84 Eren Reyes 03/21/2019 5mg Tablets Xiomara Boland Carbidopa-Levodopa 1.5 tabs by 540tabs Eren Reyes 03/19/2015 25-100mg mouth three Xiomara Boland Tablets times a day after meals Pravastatin Sodium 1 tablet daily Sergio Reyes 11/26/2014 40mg Tablets at bedtime Xiomara Silverman Metformin 1 po tid Unknown 500mg Lisinopril 1 po qd 90tabs Unknown 40mg Tablets Lexapro 1 po qd 30tabs Shallish, Michael, 10mg Tablets MD Hydrochlorothiazide 1 by mouth 90tabs Unknown 25mg Tablets every day Norvasc 1 by mouth 30tabs Unknown 5mg Tablets every day Immunizations Description No Information Available Vital Signs Date Vital Result Comment 06/26/2019 1:18pm Height 65 inches 5'5" Weight 192.25 lb Heart Rate 66 /min R radial, regular BP Systolic Sitting 112 mmHg Rue, reg cuff BP Diastolic Sitting 78 mmHg Rue, reg cuff BP Systolic Standing 110 mmHg Rue, reg cuff BP Diastolic Standing 70 mmHg Rue, reg cuff BMI (Body Mass Index) 32.0 kg/m2 Ejection Fraction 55-60% 03/21/2019 10:07am Height 65 inches 5'5" Weight 190.50 lb Heart Rate 72 /min BP Systolic Sitting 110 mmHg BP Diastolic Sitting 70 mmHg O2 % BldC Oximetry 95 % BMI (Body Mass Index) 31.7 kg/m2 Results Description No Information Available Procedures Date Code Description Status 03/06/2019 28482 ECHO Transthoracic, Real-Time 2D With Doppler And Color Completed Flow 03/06/2019 20706 ECHO Transthoracic, Real-Time 2D With Doppler And Color Completed Flow 02/21/2019 65285 Pace Maker Eval W/Iterative Adjment Dual Lead Completed 02/21/2019 26197 Pace Maker Eval W/Iterative Adjment Dual Lead Completed 02/17/2019 36516 EKG Tracing & Interpretation Completed Medical Devices Description No Information Available Encounters Type Date Location Provider Dx Diagnosis Office Visit 03/21/2019 [facility] Eren Reyes G20 Parkinson's 9:45a Xiomara Boland disease G31.84 Mild cognitive impairment, so stated R29.6 Repeated falls Office Visit 02/17/2019 2:00p [facility] Sejal Thuman, I35.0 Nonrheumatic SUPERVISOR POLISHING aortic (valve) stenosis Z95.0 Presence of cardiac pacemaker I71.2 Thoracic aortic aneurysm, without rupture R53.83 Other fatigue [facility], 2:10p [facility], [facility] unspecified Hospitalists organism R53.1 Weakness Office Visit 01/03/2019 [facility] J18.9 Pneumonia, 2:09p [facility], [place] unspecified Hospitalists organism G20 Parkinson's disease R41.0 Disorientation, unspecified R53.1 Weakness Office Visit 01/02/2019 [facility] J18.9 Pneumonia, 2:09p [facility], [place] unspecified Hospitalists organism E11.9 Type 2 diabetes mellitus without complications G20 Parkinson's disease Office Visit 01/01/2019 2:09p [facility] J18.9 Pneumonia, Assoc,curt Cee M.D. unspecified Hospitalists organism E87.2 Acidosis M62.82 Rhabdomyolysis G20 Parkinson's disease Assessments Date Code Description Provider 06/26/2019 Z95.0 Presence of cardiac pacemaker Sergio Silverman M.D. 06/26/2019 I44.1 Atrioventricular block, second degree Sergio Silverman M.D. 06/26/2019 I45.10 Unspecified right bundle-branch block Sergio Silverman M.D. 06/26/2019 E78.49 Other hyperlipidemia Sergio Silverman M.D. 06/26/2019 I77.819 Aortic ectasia, unspecified site Sergio Silverman M.D. 03/21/2019 G20 Parkinson's disease Eren Boland M.D. 03/21/2019 G31.84 Mild cognitive impairment, so stated Eren Boland M.D. 03/21/2019 R29.6 Repeated falls Eren Boland M.D. 03/06/2019 I35.0 Nonrheumatic aortic (valve) stenosis Sergio Silverman M.D. 03/06/2019 I35.0 Nonrheumatic aortic (valve) stenosis [facility] 03/06/2019 Z95.0 Presence of cardiac pacemaker [facility] 03/06/2019 I44.1 Atrioventricular block, second degree [facility] 03/06/2019 R94.31 Abnormal electrocardiogram [ECG] [EKG] [facility] 03/06/2019 I71.2 Thoracic aortic aneurysm, without [facility] rupture 02/21/2019 Z95.0 Presence of cardiac pacemaker Sergio Silverman M.D. 02/21/2019 Z95.0 Presence of cardiac pacemaker [facility] Schedule 02/21/2019 I44.1 Atrioventricular block, second degree [facility] Pacer Schedule 02/17/2019 I45.10 Unspecified right bundle-branch block Sergio Silverman M.D. 02/17/2019 I35.0 Nonrheumatic aortic (valve) stenosis Sejal Berger NP 02/17/2019 I44.0 Atrioventricular block, first degree Sergio Silverman M.D. 02/17/2019 Z95.0 Presence of cardiac pacemaker Sejal Berger NP 02/17/2019 R94.31 Abnormal electrocardiogram [ECG] [EKG] Sergio Silverman M.D. 02/17/2019 I71.2 Thoracic aortic aneurysm, without Sejal Berger NP rupture 02/17/2019 R53.83 Other fatigue Sejal Berger NP 01/04/2019 J18.1 Lobar pneumonia, unspecified organism MIRA Colon 01/04/2019 R53.1 Weakness M[facility] Colon 01/03/2019 J18.9 Pneumonia, unspecified organism [facility] Colon 01/03/2019 G20 Parkinson's disease [facility] Colon 01/03/2019 R41.0 Disorientation, unspecified [facility] Colon 01/03/2019 R53.1 Weakness [facility] Colon 01/02/2019 J18.9 Pneumonia, unspecified organism [facility] Colon 01/02/2019 E11.9 Type 2 diabetes mellitus without [facility] Colon complications 01/02/2019 G20 Parkinson's disease [facility] Colon 01/01/2019 J18.9 Pneumonia, unspecified organism Narinder Cee M.D. 01/01/2019 E87.2 Acidosis Narinder Cee M.D. 01/01/2019 M62.82 Rhabdomyolysis Narinder Cee M.D. 01/01/2019 G20 Parkinson's disease Narinder Cee M.D. Plan of Treatment Future Appointment(s):07/28/2019 9:45 am - Eren Boland M.D. at [id number]/26/2019 - Sergio Silverman M.D.Z95.0 Presence of cardiac rmiaugdehT51.1 Atrioventricular block, second tjrpyyK40.10 Unspecified right bundle-branch vcrbjE24.49 Other [id number] Aortic ectasia, unspecified siteNew Orders:Echocardiogram, Ordered: 06/26/19Follow up: one yr ov Functional Status Description No Information Available Mental Status Description No Information Available Referrals Description No Information Available
--- NOTE | 2019-07-27 12:12 | ED ---
Neurological HPI - HPI Summary HPI Summary: 79-year-old male with a past medical history of Parkinson's, pacemaker placement following asystole, diabetes presents to the emergency department today with a chief complaint of "I can't move my left leg". The patient states last night he went to sleep and his reclining chair and felt normal and then woke up earlier this morning and slipped out of his chair to weakness and was unable to move his left leg. Patient's found him on the ground at 6:00 this morning. He has no other neurological deficits other than per motor in the left leg. Patient is able to feel all sensations along the lumbar and sacral dermatomes. He has no other complaints at this time. He denies any fever, back pain, chest pain, shortness of breath, abdominal pain, difficulty with urination, saddle paresthesia. Patient denies any past medical history of atrial fibrillation, stroke, TIA, ACS. Last known well was last night. - History of Current Complaint Chief Complaint: EDNeurologicalDeficit Stated Complaint: UNABLE TO AMBULATE PER Time Seen by Provider: 07/27/19 11:50 Hx Obtained From: Patient, Family/Circulation Man Onset/Duration: Sudden Onset - Upon waking this morning Timing: Constant Onset Severity: Moderate Current Severity: Moderate Neurological Deficit Location: LLE Pain Intensity: 0 Pain Scale Used: 0-10 Numeric Character: Weak, Motor Weakness - P or motor weakness of the left lower extremity Episode Lasting: Unknown - Last known well was last night Syncope Context: Unknown - Patient states he woke up and had his symptoms Syncope Location: Partial Extremities - Left lower extremity Aggravating: Nothing Associated Signs and Symptoms: Positive: Weakness, Trauma: Recent - Patient slipped from his chair this morning and laid on the ground until his found him 06 100. Negative: Unsteady Gait, Visual Changes, Headache, Memory Loss, Confusion, Loss of Consciousness, Dizziness, Decreased Level of Consciousness, Pain, AMS, Numbness, Fever, Neck Pain/Stiffness, Chest Pain, Shortness of Breath TPA Considered: No - last well known with last night. Unknown when episode began Similar Episode/Dx as: none - Additional Pertinent History Primary Care Physician: [id number] - Allergy/Home Medications Allergies/Adverse Reactions: Allergies Allergy/AdvReac Type Severity Reaction Status Date / Time Adhesive Tape [Paper Tape] Allergy Rash Verified 12/31/18 22:28 cephalexin [From Keflex] Allergy Rash Verified 12/31/18 22:28 levofloxacin [From Levaquin] Allergy Rash Verified 12/31/18 22:28 Home Medications: Home Medications Donepezil TAB* [Aricept 5 MG TAB*] 5 mg PO DAILY 07/27/19 [History Confirmed 04/07] Lisinopril TAB* [Prinivil TAB*] 40 mg PO DAILY 07/27/19 [History Confirmed 07/27] metFORMIN* [Glucophage 500 MG TAB *] 500 mg PO TID 07/27/19 [History Confirmed 07/27/19] PMH/Surg Hx/FS Hx/Imm Hx Endocrine/Hematology History: Reports: Hx Diabetes Cardiovascular History: Reports: Hx Hypercholesterolemia, Hx Hypertension Denies: Hx Angina, Hx Coronary Artery Disease, Hx Myocardial Infarction, Hx Valvular Heart Disease Respiratory History: Denies: Hx Asthma, Hx Chronic Obstructive Pulmonary Disease (COPD) History: Denies: Hx Renal Disease Sensory History: Reports: Hx Contacts or Glasses Denies: Hx Hearing Aid Opthamlomology History: Reports: Hx Contacts or Glasses - Surgical History Surgery Procedure, Year, and Place: CERVICAL STENOSIS SX - Immunization History Date of Influenza Vaccine: 07/17/2019 Immunizations Up to Date: Yes Infectious Disease History: No Infectious Disease History: Denies: Traveled Outside the [place] in Last 30 Days - Family History Known Family History: Negative: Blood Disorder - Social History Alcohol Use: Occasionally Substance Use Type: Reports: None Smoking Status (MU): Former Smoker Type: Cigarettes Review of Systems Constitutional: Negative Eyes: Negative Cardiovascular: Negative Respiratory: Negative Gastrointestinal: Negative Musculoskeletal: Other - weakness through the left lower extremity Skin: Negative Positive: Weakness - left lower extremity. Negative: Headache, Paresthesia, Numbness, Slurred Speech Psychological: Normal All Other Systems Reviewed And Are Negative: Yes Physical Exam Triage Information Reviewed: Yes Vital Signs On Initial Exam: Initial Vitals Temp Pulse Resp BP Pulse Ox 99.1 F 88 17 142/65 93 07/27/19 11:45 07/27/19 11:45 07/27/19 11:45 07/27/19 11:45 07/27/19 11:45 Vital Signs Reviewed: Yes Appearance: Positive: Well-Appearing, No Pain Distress Skin: Positive: Warm, Skin Color Reflects Adequate Perfusion Head/Face: Positive: Normal Head/Face Inspection Eyes: Positive: Normal, EOMI, NGOZI, Conjunctiva Clear ENT: Positive: Hearing grossly normal Neck: Positive: Nontender Respiratory/Lung Sounds: Positive: Clear to Auscultation, Breath Sounds Present Cardiovascular: Positive: Normal, RRR, S1, S2 Abdomen Description: Positive: Nontender Musculoskeletal: Positive: Abnormal @ - Left lower extremity has substantial weakness. Patient is unable to hold left lower extremity up against gravity. Neurological: Positive: Sensory/Motor Intact - Sensory is intact motor function and left lower extremity is significantly diminished, Facial Droop - No facial droop is appreciated while the patient was smiling however the patient has a right-sided facial droop at baseline., Focal Deficit @ - Loss of sensation is or motor patient has full sensation to light touch throughout all the dermatomes of the lower left extremity. Patient is unable to distinguish position of toe when put in flexion and extension with his eyes closed., Heel to Toe, Finger to Nose, Facial Symmetry. Negative: Slurred Speech Psychiatric: Positive: Normal AVPU Assessment: Alert Procedures - Sedation Patient Received Moderate/Deep Sedation with Procedure: No Diagnostics - Vital Signs Vital Signs Temp Pulse Resp BP Pulse Ox 07/27/19 11:45 99.1 F 88 17 142/65 93 - Laboratory Result Diagrams: 07/27/19 12:59 07/27/19 12:59 Lab Statement: Any lab studies that have been ordered have been reviewed, and results considered in the medical decision making process. NIH Scale - NIH Scale Level of Consciousness: Alert/Keenly Responsive Ask Patient the Month and His/Her Age: Both Correct Ask Pt to Open/Close Eyes and Supervisor Cart[employer] Supply/Release Non-Paretic Hand: Both Correctly Best Gaze (Only Horizontal Eye Movement): Normal Visual Field Testing: No Visual Loss Facial Paresis-Pt to Smile & Close Eyes or Grimace Symmetry: Normal/Symmetrical Motor Function - Right Arm: No Drift-Holds 10 Seconds Motor Function - Left Arm: No Drift-Holds 10 Seconds Motor Function - Right Leg: No Drift-Holds 10 Seconds Motor Function - Left Leg: Effort Against [place]vane Limb Ataxia-Must be out of Proportion to Weakness Present: Present in One Limb Sensory (Use Pinprick to Test Arms/Legs/Trunk/Face): Normal Best Language (Describe Picture, Name Items): No Aphasia Dysarthria (Read Several Words): Normal Extinction and Inattention: No Abnormality Total Score: 3 Re-Evaluation - Re-Evaluation First Eval Re-Evaluation Time: 13:39 Change: Improved - Since arrival patient has significantly improved strength in the left lower extremity. Course/Dx - Course Course Of Treatment: Patient was evaluated in the emergency department today for focal neurologic deficit of the left lower extremity. Patient was seen and evaluated by this writer editor and the attending physician Dr. Trevino. Upon evaluation there is a high suspicion for a CVA which occurred at an unknown time. CT scans were obtained to investigate the possibility of a stroke. An EKG and laboratory results were obtained. EKG revealed normal sinus rhythm with a rate of 86 bpm evidence of a prolonged [place] interval at 239 patient has a right bundle branch block but compared to old EKGs this is not new. EKG reveals signs of a past inferior wall CO with evidence of Q waves and T-wave inversion in many leads. There is no ST elevation at this time. CT scans of the head and lumbar spine revealed chronic degenerative changes. CT revealed no acute occlusive disease, aneurysm or severe stenosis. X-ray of the chest revealed no acute pulmonary or cardiac pathology. No evidence of thrombus and cerebral arteries. No acute occlusion or severe stenosis in major neck vessels. During his stay patient said he started becoming incontinent. He stated he is unable to control when he urinates. A bladder scan was obtained and showed a post postvoid residual of 100 mL. A rectal exam was performed to rule out neurological problems such as cauda equina. Rectal exam showed good rectal tone. Neurologist Dr. Ordonez was consulted at 1520. The case was discussed and he agreed to see the patient tomorrow and suggested starting the patient on aspirin and Plavix for thrombosis prophylaxis. The hospitalist Dr. Rushing was consulted at 1530 and agreed to take the patient for evaluation tomorrow. The patient was made aware and agrees with this plan. The patient was stable during the entirety of his stay in the ED. - Differential Dx Differential Diagnoses Neuro: Positive: Injury, Other - TIA, CVA, exacerbation of Parkinson's. - Diagnoses Provider Diagnoses: Neurological deficit, transient - Physician Notifications Discussed Care Of Patient With: Tyler Ordonez - Also disscussed with Dr. Rushing Instructed by Provider To: Admit As Inpatient Admit/Transition Orders Completed By ED Provider: No Discharge ED - Sign-Out/Discharge Documenting (check all that apply): Patient Departure - Discharge Plan Condition: Improved Disposition: ADMITTED TO [facility] - Billing Disposition and Condition Condition: IMPROVED Disposition: Admitted to [facility] - Attestation Statements Provider Attestation: I saw the pt along w the midlevel provider and agree with their documentation as well as my documentation noted below: woke with LLE weakness, improving with rest in ED, hemodynamically stable for ED LOS, CTA neg, pt admitted for unspecified LLE weakness concern for Central cause, neuro consult called, they will see pt once admitted to hospitalist servivce Addendum entered and electronically signed by Justin Cleary PA 07/27/19 16:05: ED Addendum Addendum: Patient urinalysis resulted showing no evidence of evidence of a UTI. It is still unknown why patient has elevated lactic acid level. This was discussed with admitting hospitalist Dr. Rushing. Addendum entered and electronically signed by Justin Cleary PA 07/27/19 17:57: ED Addendum Addendum: At 1745 the patient was using the commode and slid off of the seat. The patient did not lose consciousness and is not complaining of any pain after this accident. The patient was assessed; vital signs are stable. The patient has no evidence of trauma including abrasions, ecchymosis or tenderness to palpation.
[2019-07-27] MEDS ORDERED: Iodixanol* (CONTRAST) 320 MG/ML 100 ML SDV IV ONE (12:46)
[2019-07-27 13:08] LABS: ABS Eosinophils 0.1 10^3/ul (0-0.6); ABS Lymphocytes 2.3 10^3/ul (1.0-4.8); ABS Monocytes 0.8 10^3/ul (0-0.8); ABS Neutrophils 6.4 10^3/ul (1.5-7.7); Eosinophil % 1.1 %; Hematocrit 44 % (42-52); Hemoglobin 14.8 g/dL (14.0-18.0); Lymphocyte % 23.6 %; Mean Corpuscular HGB Conc 34 g/dL (31-36); Mean Corpuscular Hemoglobin 30 pg (27-31); Mean Corpuscular Volume 89 fL (80-94); Mean Platelet Volume 7.5 fL (7.4-10.4); Nucleated Red Blood Cells % 0.1; Platelet Count 185 10^3/uL (150-450); Red Blood Count 4.91 10^6 /uL (4.18-5.48); Red Cell Distribution Width 15 % (10-15); White Blood Count 9.6 10^3/uL (3.5-10.8)
[2019-07-27 13:13] LABS: INR 1.09 (0.82-1.09)
[2019-07-27 13:32] LABS: Albumin 4.2 g/dL (3.2-5.2); Albumin/Globulin Ratio 1.5 (1-3); BUN/Creatinine Ratio 23.2 (8-20); Calcium 9.3 mg/dL (8.6-10.3); EGFR Non-African American 76.9 (>60); Globulin 2.8 g/dL (2-4); Potassium 3.6 mmol/L (3.5-5.0)
[2019-07-27 13:34] LABS: Troponin I 0.01 ng/mL (<0.04)
[2019-07-27] MEDS ORDERED: Aspirin 81 mg CHEW TAB* 81 MG TAB.CHEW PO ONE ×2 (15:30→15:34)
[2019-07-27] MEDS ORDERED: Clopidogrel TAB* 75 MG PO ONE (15:31)
[2019-07-27 15:57] LABS: Urine Appearance Clear; Urine Bilirubin Negative (Negative); Urine Blood Negative (Negative); Urine Color Yellow; Urine Glucose Negative (Negative); Urine Ketones Negative (Negative); Urine Nitrite Negative (Negative); Urine Protein Negative (Negative); Urine Specific Gravity 1.045 (1.010-1.030); Urine Urobilinogen Negative (Negative)
[2019-07-27] MEDS ORDERED: Acetaminophen TAB* 325 MG PO PRN (15:57)
[2019-07-27] MEDS ORDERED: Lactated Ringers 1000 ML Bag* 1,000 ML IV ONE (17:00)
--- NOTE | 2019-07-27 18:34 | HP ---
CC: Dr. Michael De Los Santos; Dr. Boland * HISTORY AND PHYSICAL: DATE OF ADMISSION: 07/27/19 PRIMARY CARE PROVIDER: Dr. Michael De Los Santos. NEUROLOGIST: Dr. Boland. HEALTHCARE PROXY: Skye, his . CODE STATUS: Full code. CHIEF COMPLAINT: Several hours of decreased motor function of left lower extremity. HISTORY OF PRESENT ILLNESS: Mr. Clemente is a 79-year-old man with Parkinson's disease and mild dementia, diabetes, hypertension, major depressive disorder and a history of heart block, now status post PPM, who is presenting after being unable to move his left leg since the morning of presentation. He reports being in his usual state of health when waking up this morning, he was then sitting in a chair and when he got up to use the restroom, he slid out of the chair because he was unable to move his left leg. He reports he usually ambulates with a cane. When he slid to the ground, he did not lose consciousness, experience weakness or lightheadedness or experience a head strike. This episode was unwitnessed. His was sleeping in the house. When she woke up, she found him on the floor and brought him to the emergency room. The patient denies decreased sensation in the leg. He denies numbness or weakness. He denies back pain, fever, chills, shortness of breath, chest pain, palpitations, slurred speech, abdominal pain, burning on urination. He denies history of atrial fibrillation, stroke, or TIA. PAST MEDICAL HISTORY: 1. Parkinson's disease, now with mild dementia. 2. Diabetes type 2. 3. Hypertension. 4. History of Mobitz type 2, now status post permanent pacemaker. 5. History of prostate cancer, status post radical prostatectomy. 6. Major depressive disorder. HOME MEDICATIONS: 1. Carbidopa/levodopa 1.5 tablets 3 times a day. 2. Metformin 500 mg 3 times a day. 3. Glipizide 5 mg twice a day. 4. Amlodipine 5 mg daily. 5. Lisinopril 40 mg daily. 6. Hydrochlorothiazide 25 mg daily. 7. Pravastatin 40 mg daily. 8. Donepezil 5 mg daily. 9. Escitalopram 10 mg daily. ALLERGIES: CEPHALEXIN and LEVOFLOXACIN caused rash. FAMILY HISTORY: The patient does not know his family history. 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 He lives with his , Skye, who is also his healthcare proxy. He quit smoking cigarettes in 2003 and has at least 20-pack year history prior to that. He reports very rare alcohol consumption and has never used other drugs. REVIEW OF SYSTEMS: A complete 10-point review of systems was performed and pertinent positives and negatives are listed in the HPI. PHYSICAL EXAMINATION GENERAL: He is a frail, elderly man, in no acute distress, who is alert and interactive. VITAL SIGNS: Afebrile, heart rate 88, blood pressure 142/65, respiratory rate 17, oxygen saturation 93% on room air. HEENT: With moist mucous membranes. OP clear. Sclerae anicteric. LUNGS: Clear to auscultation bilaterally. HEART: Regular rate and rhythm. No murmurs, gallops, or rubs. ABDOMEN: Soft, nontender, nondistended. EXTREMITIES: Warm and well perfused without evidence of edema. NEURO: A and O x3. Cranial nerves II through XII intact, although the patient seems to have masked facies. Of note, it does appear the patient has right facial droop at rest, but this corrects with facial movement. The patient reports this is chronic. Upper extremity strength 5/5 bilaterally. Right lower extremity strength 5/5. Left hip flexion 4/5, knee extension 3/5, ankle flexion and extension 2/5. The patient is unable to wiggle toes. Babinski equal bilaterally. Proprioception is intact on the left big toe. SKIN: Dry. DIAGNOSTIC STUDIES/LAB DATA: CBC, INR, and LFTs unremarkable. BUN/creatinine ratio mildly elevated. Lactic acid 2.3. UA unremarkable. Head CTA without acute intracranial abnormality by CT, mild chronic small vessel disease is likely unchanged ventriculomegaly. No acute occlusive disease , aneurysm, or severe stenosis. Neck CTA: Hypertrophic degenerative changes result in moderate external compression of the left vertebral artery at the level of C3-C4, correlate clinically for bow paul's syndrome. No acute occlusion or severe stenosis in the remaining major neck vessels. C4 through C7 ACDF and corpectomy with mesh cage reconstruction. There is at least some moderate spinal canal stenosis at C5-C6 and C6-C7. Lumbar spine CT: No evidence for fracture. Multilevel degenerative disk disease and facet osteoarthritis with changes most prominent at the L3-L4, L4- L5 and L5-S1 levels as noted. Cholelithiasis. Chest x-ray: No active cardiopulmonary disease. ASSESSMENT AND PLAN: Mr. Clemente is a 79-year-old male with Parkinson's disease and dementia, diabetes, hypertension, major depressive disorder and history of heart block, status post PPM, who is presenting with acute onset of left lower extremity weakness. The patient was found in the ER with inability to walk, but without other concerning focal neuro deficits. 1. 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 The patient does not have signs or symptoms consistent with a radiculopathy. It appears he was ordered for aspirin load and Plavix in the ER, although it is unclear if these medications have yet been administered. He will be admitted for stroke workup and Neurology has been consulted. He will be continued on his home statin and we will initiate aspirin. Neurology consult can determine need for dual antiplatelet agents. The patient cannot have an MRI given his pacemaker is not compatible. We will repeat a brain CT 24 hours after the first brain CT, get an echocardiogram with bubbles and admit the patient to telemetry for further monitoring. I have also placed an order to have his pacemaker interrogated for abnormal rhythms if this is possible. 2. Diabetes. Continue the patient's home metformin 500 t.i.d. and glipizide 5 mg twice a day. 3. Hypertension. Continue home amlodipine 5 mg daily, hydrochlorothiazide 25 mg daily, and lisinopril 40 mg daily. 4. Parkinson's disease and dementia. Continue home Sinemet 1.5 tablets t.i.d. and donepezil 5 mg daily. 5. Major depressive disorder. Continue the patient's home SSRI, escitalopram 10 mg daily. 6. DVT prophylaxis: Initiate enoxaparin subcutaneously once a day. 7. Code status: Full code. TIME SPENT: Approximately 60 minutes was spent on admission of this patient, more than half of which was spent at bedside for interview and exam. [id number]/[facility] #: [id number] [facility] HOSPITALShruthi
[2019-07-27] MEDS: Carbidopa/Levodop 25/100 MG TAB(*) PO SCH (20:31)
[2019-07-27] MEDS: Enoxaparin(*) 40 MG/0.4 ML SYR SUBCUT SCH (20:31)
[2019-07-27] MEDS: metFORMIN* 500 MG TAB PO SCH (20:31)
[2019-07-27] MEDS: glipiZIDE TAB.XL* 2.5 MG PO SCH (20:34)
[2019-07-28 05:30] LABS: BUN/Creatinine Ratio 21.3 (8-20); Calcium 9.2 mg/dL (8.6-10.3); EGFR African American 94.2 (>60); EGFR Non-African American 77.8 (>60); HDL Cholesterol 27.1 mg/dL; Potassium 3.2 mmol/L (3.5-5.0)
[2019-07-28] MEDS: Lisinopril TAB* 10 MG PO SCH (09:22)
[2019-07-28] MEDS: Carbidopa/Levodop 25/100 MG TAB(*) PO SCH ×3 (09:22→21:11)
[2019-07-28] MEDS: Donepezil TAB* 5 MG PO SCH (09:22)
[2019-07-28] MEDS: metFORMIN* 500 MG TAB PO SCH ×3 (09:22→21:12)
[2019-07-28] MEDS: Atorvastatin* 10 MG TAB PO SCH (09:23)
[2019-07-28] MEDS: Hydrochlorothiazide TAB* 25 MG PO SCH (09:23)
[2019-07-28] MEDS: amLODIPine TAB* 5 MG PO SCH (09:24)
[2019-07-28] MEDS: Escitalopram * 10 MG TAB PO SCH (09:24)
[2019-07-28] MEDS: Aspirin 81 mg CHEW TAB* 81 MG TAB.CHEW PO SCH (09:24)
[2019-07-28] MEDS: glipiZIDE TAB.XL* 2.5 MG PO SCH ×2 (10:35→21:12)
[2019-07-28] MEDS: Potassium Chlor TAB* 20 MEQ TAB.ER PO SCH ×2 (13:54→17:59)
--- NOTE | 2019-07-28 14:02 | PN ---
Subjective Date of Service: 07/28/19 Interval History: Mr. Clemente is feeling better today. His LLE strength has improved significantly , but still feeling weak. His also thinks he is improved. Worked with PT this morning and was happy with his progress. Denies CP, SOB. No concerns from nursing. Family History: Unchanged from Admission Social History: Unchanged from Admission Past Medical History: Unchanged from Admission Objective Active Medications: Acetaminophen (Tylenol Tab*) 975 mg PO Q8H PRN PAIN - MILD Amlodipine Besylate (Norvasc Tab*) 5 mg PO DAILY [facility] Aspirin (Aspirin 81 Mg Chew Tab*) 81 mg PO DAILY [facility] Atorvastatin Calcium (Lipitor*) 10 mg PO DAILY [facility] Carbidopa/Levodopa (Sinemet 25/100 Tab(*)) 1.5 tab PO TID [facility] Donepezil HCl (Aricept Tab*) 5 mg PO DAILY [facility] Enoxaparin Sodium (Lovenox(*)) 40 mg SUBCUT Q24H [facility] Escitalopram Oxalate (Lexapro *) 10 mg PO DAILY [facility] Glipizide (Glucotrol Xl*) 5 mg PO BID [facility] Hydrochlorothiazide (Hydrodiuril Tab*) 25 mg PO DAILY [facility] Lisinopril (Prinivil Tab*) 40 mg PO DAILY [facility] Metformin HCl (Glucophage*) 500 mg PO TID [facility] Potassium Chloride (Klor Con Er Tab*) 20 meq PO Q4H [facility] Vital Signs - 8 hr 07/28/19 07/28/19 07:15 10:59 Temperature 98.1 F 97.6 F Pulse Rate 66 82 Respiratory 16 16 Rate Blood Pressure 125/73 122/63 (mmHg) O2 Sat by Pulse 96 93 Oximetry Oxygen Devices in Use Now: None Appearance: Elderly male sitting in bed in NAD Ears/Nose/Mouth/Throat: Mucous Membranes Moist Neck: NL Appearance and Movements; NL JVP, Trachea Midline Respiratory: Symmetrical Chest Expansion and Respiratory Effort, Clear to Auscultation Cardiovascular: NL Sounds; No Murmurs; No JVD, RRR Abdominal: NL Sounds; No Tenderness; No Distention Extremities: No Edema Neurological: Alert and Oriented x 3, NL Sensation, NL Muscle Strength and Tone Lines/Tubes/Other Access: Clean, Dry and Intact Peripheral IV Nutrition: Taking PO's Result Diagrams: 07/27/19 12:59 07/28/19 04:48 Assess/Plan/Problems-Billing Assessment: Mr. 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 - Patient Problems (1) CVA (cerebral vascular accident) Code(s): I63.9 - CEREBRAL INFARCTION, UNSPECIFIED Comment: - Resulting in LLE weakness - CT/CTA brain unremarkable for infarct, shows unchanged ventriculomegaly - MRI not possible as pacer is not MRI compatible - Known PFO from previous echo; BLE US negative for DVT - Appreciate Neuro consult; recommends DAPT for 30 days then aspirin only - Continue aspirin, Plavix, atorvastatin (2) Diabetes mellitus Code(s): E11.9 - TYPE 2 DIABETES MELLITUS WITHOUT COMPLICATIONS Comment: - A1c 6.6% indicating excellent control - Continue metformin, glipizide (3) Parkinson's disease Code(s): G20 - PARKINSON'S DISEASE Comment: - Continue Sinemet, Aricept (4) Hypertension Code(s): I10 - ESSENTIAL (PRIMARY) HYPERTENSION Comment: - Normotensive - Continue lisinopril, amlodipine, HCTZ (5) DVT prophylaxis Comment: - Lovenox (6) Full code status Code(s): Z78.9 - OTHER SPECIFIED HEALTH STATUS Comment: Status and Disposition: Inpatient. Anticipate d/c to [facility] when medically stable. Pending PMRU referral. Attending: Reyna Rushing
--- NOTE | 2019-07-28 16:11 | CONS ---
CONSULTATION REPORT: DATE OF CONSULT: 07/28/19 PATIENT OF: Greta Faustin NP; Dr. De Los Santos; Dr. Boland. HISTORY OF PRESENT ILLNESS: I was asked to consult on this 79-year-old man with an episode of left leg weakness. He went to bed at about 10 and was fine and was using a cane as he usually does. Yesterday morning, he was unable to get out of his recliner where he was sleeping. He slid out of the chair. He was unable to move his entire left leg. He did not lift it up. He could not move at the ankle. He had some numbness in his left foot. There was no back pain. He was brought to the ER. He did not immediately come because he did not let his bring him initially for several hours because he thought it was just his Parkinson's. He has a history of hypertension, diabetes type 2. He has a history of Parkinson's mild dementia. He has history of Mobitz type 2, status post permanent pacemaker. He has a history of prostate cancer, status post radical prostatectomy, major depressive disorder. He has had surgeries of cervical and lumbar surgery, this is not in the chart currently. MEDICATIONS AT HOME: Include: 1. Sinemet 1.5 tab 3 times a day 25/100. 2. Metformin 500 three times a day. 3. Glipizide 5 mg twice a day. 4. Amlodipine 5 mg daily. 5. Lisinopril 40 mg daily. 6. Hydrochlorothiazide 25 mg daily. 7. Pravastatin 40 mg daily. 8. Donepezil 5 mg daily. 9. Escitalopram 10 mg daily. 10. Of note, he is currently also on aspirin 81 mg daily. ALLERGIES: He is allergic to CEPHALEXIN and LEVOFLOXACIN, both causing rash. FAMILY HISTORY: He did not know his family history. 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 Lives with his . He quit smoking in 2003, at least 20-pack year history prior to that. He reports alcohol consumption. REVIEW OF SYSTEMS: All 14 spheres is negative other than in the HPI. History is somewhat vague on his part, but is a good historian. PHYSICAL EXAM: On exam, temperature 97.6, pulse 82, respiration 16, blood pressure 122/63. He is alert, mildly confused. Cranial nerves II through XII are intact. Good reflexes present bilaterally. He had some mild cogwheel rigidity and a resting tremor on the right. Strength is 5/5 in his upper extremities and his right leg. Left leg, he had good proximal strength. No drift in his left leg. This is a big change from yesterday. He could not lift his leg off the bed. There is 5-/5 strength in dorsiflexion and plantarflexion of his foot now. There was no numbness to touch. Reflexes were trace to 1. Chest: Clear. Cardiovascular: Regular rate and rhythm. Abdomen is soft. DIAGNOSTIC STUDIES/LAB DATA: A CT scan I reviewed and showed ventriculomegaly. This is unchanged from the prior study, which I also reviewed. His CTA showed no acute clot. There were hypertrophic degenerative changes in his neck that led to moderate compression of his left vertebral artery at the level of C3-4. Labs include normal CBC, normal INR. Chemistries were abnormal for hemoglobin A1c of 6.6. LDL of 57 is normal. Normal liver function tests. UA was negative. ASSESSMENT AND PLAN: Discussed with Nolan and his that he had acute onset of entire left leg weakness that happened sometimes last night and mostly cleared within the day. He has minor residual as best I can tell today and this most likely was an anterior cerebral artery partial stroke and that has resolved. This would not be consistent with Parkinson's and the pattern would be atypical for radiculopathy. He should be on aspirin and Plavix as tolerated for a month and adjust aspirin by itself. He has a known PFO. The report of his cardiac echo is pending. He is waiting for vascular studies on his legs, which according to tech is negative. With regard to the aspirin and Plavix, I will speak to Dr. Boland to make sure he is aware of the left vertebral compression due to his neck disease. I think most likely nothing needs to be done further on this and he is a complicated patient who is unlikely to tolerate major surgery even if indicated. I think this may be best left alone. He also has ventriculomegaly, which could sometimes be associated with Parkinsonian symptoms. I do not think that this is the case in his case and his CT scans had been stable, but I will re-discuss this issue with Dr. Boland as well. Thank you for sharing his case. [id number]/[facility] #: [id number] CHELSEA
--- NOTE | 2019-07-28 16:35 | ECHO ---
*[facility]* [place] [address] Fax #: [phone] Transthoracic Echocardiogram Patient: Nolan Clemente : 1940 Study Date: 07/28/2019 Age: 79 Gender: M HR: 68 bpm Height: 67 in /170.2 cm BSA: 2.03 m^2 Weight: 187.6 lb /85.3 kg BMI: 29.4 kg/m^2 *Electronics Engineering Manager: * Negrita Lara RDCS RN *Referring Physician: * Reyna Rushing *Reading Physician: * Wai Mendoza MD Indications: CVA. History: Parkinson's disease. Patent foramen ovale with left to right shunt. Mobitz II heart block. Pacemaker. Risk factors: Hypertension. Diabetes mellitus. Obese. Dyslipidemia. Conclusions Summary: - Left ventricle: The cavity size is mildly reduced. Wall thickness is mildly to moderately increased. Sigmoid septum present. Systolic function is normal. The estimated ejection fraction is 60-65%. Doppler parameters are consistent with abnormal left ventricular relaxation (grade 1 diastolic dysfunction). - Right ventricle: The cavity size is normal. Wall thickness is mildly increased. - Ventricular septum: The interventricular septum appears dyssynchronous. - Mitral valve: There is trace regurgitation. - Aortic valve: The findings are consistent with mild stenosis. There is trace to mild regurgitation. The mean systolic gradient is 9.0 mm Hg. The peak systolic gradient is 15.0 mm Hg. The valve area by the velocity-time integral method is 1.50 cm^2. The ratio of LVOT to aortic valve peak velocity is 0.46. The valve area by the peak velocity method is 1.50 cm^2. - Tricuspid valve: There is trace to mild regurgitation. - The prior study of 03/08 reported a patent foramen ovale which was not confirmred this time. Otherwise, similar. \ Study data: Transthoracic echocardiogram. Procedure: Transthoracic echocardiography was performed. Image quality was fair. The study was technically limited due to body habitus. Complete 2D, spectral Doppler, and color flow Doppler. Location: Bedside. Patient status: Inpatient. Patient room number: 447-02. The previous study was not available, so comparison is made to the report of February 2019. Rhythm: Normal sinus rhythm with PVC's. RBBB. Findings Left ventricle: The cavity size is mildly reduced. Wall thickness is mildly to moderately increased. Sigmoid septum present. Systolic function is normal. The estimated ejection fraction is 60-65%. Wall motion is normal; there are no regional wall motion abnormalities. Doppler parameters are consistent with abnormal left ventricular relaxation (grade 1 diastolic dysfunction). Right ventricle: The cavity size is normal. Wall thickness is mildly increased. Pacer wire noted in the right ventricle. Systolic function is normal. Ventricular septum: The interventricular septum appears dyssynchronous. Left atrium: The atrium is normal in size. Right atrium: The atrium is normal in size. Pacer wire noted in right atrium. Atrial septum: A patent foramen ovale cannot be excluded by color flow Doppler. Mitral valve: The leaflets are mildly thickened. There is no evidence of stenosis. There is trace regurgitation. Aortic valve: The valve is trileaflet. The leaflets are mildly thickened with moderate thickening and decreased excursion of the NCC. The findings are consistent with mild stenosis. There is trace to mild regurgitation. Tricuspid valve: The valve is structurally normal. There is no evidence of stenosis. There is trace to mild regurgitation. Pulmonic valve: The valve is structurally normal. There is no evidence of stenosis. There is trace regurgitation. Aorta: Aortic root: The aortic root is not dilated. Ascending aorta: The ascending aorta is mildly dilated at 3.7. Aortic arch: The aortic arch is not dilated. Pericardium: There is no pericardial effusion. Pulmonary arteries: Systolic pressure is within the normal range, estimated to be 32 mm Hg. Systemic veins: Inferior vena cava: The vessel is normal in size. Measurements Left ventricle Value Ref Aortic valve Value Ref JAYLEN, LAX (L) 3.7 cm 4.2 - Peak v, S 1.9 m/sec ----- 5.8 VTI, S 36.8 cm ----- ESD, LAX (L) 2.4 cm 2.5 - Mean grad, S 9.0 mm Hg ----- 4.0 Peak grad, S 15.0 mm Hg ----- FS, LAX 35 % 25 - 43 LVOT/AV, VTI ratio 0.48 ----- PW, ED (H) 1.3 cm 0.6 - LEIDA, VTI 1.50 cm^2 ----- 1.0 LEIDA, Vmax 1.50 cm^2 ----- IVS/PW, ED 1.09 -------- E', lat saeid, TDI (L) 7.0 cm/sec >=10.0 Mitral valve Value Ref E/e', lat saeid, TDI 8 -------- Peak E 0.57 m/sec ----- E', med saeid, TDI (L) 6.0 cm/sec >=7.0 Peak A 0.94 m/sec --- -- E/e', med saeid, TDI 10 -------- Decel time 272 ms ----- E', avg, TDI 6.5 cm/sec -------- Peak E/A ratio 0.61 ----- E/e', avg, TDI 9 <=14 Pulmonic valve Value Ref LVOT Value Ref Peak v, S 0.86 m/sec ----- Diam, S 2.00 cm -------- Peak grad, S 2.9 mm Hg ----- Area 3.1 cm^2 -------- Peak raul, S 0.88 m/sec -------- Tricuspid valve Value Ref VTI, S 17.7 cm -------- TR peak v 2.7 m/sec <=2.8 Peak grad, S 3 mm Hg -------- Peak RV-RA grad, S 29 mm Hg ----- Mean grad, S 2 mm Hg -------- Aortic root Value Ref Ventricular septum Value Ref Root diam 3.3 cm <4.2 IVS, ED (H) 1.4 cm 0.6 - 1.0 Ascending aorta Value Ref AAo AP diam, S 3.7 cm ----- Right ventricle Value Ref AW thickness, ED (H) 0.7 cm 0.1 - Aortic arch Value Ref 0.5 Arch diam 2.5 cm ----- JAYLEN, LAX 2.4 cm -------- JAYLEN minor ax, A4C 2.6 cm 1.9 - Decending aorta Value Ref mid 3.5 Nitish peak raul 0.54 m/sec ----- Pressure, S 32 mm Hg -------- Pulmonary artery Value Ref Left atrium Value Ref Pressure, S 29.1 mm Hg ----- LA ID 2.3 cm -------- SI dim ES, LAX 2.3 cm -------- Inferior vena cava Value Ref ML dim, A4C 3.7 cm -------- Diam 1.5 cm ----- SI dim, A4C 5.2 cm -------- Vol, ES, 2-p 47 ml -------- Vol/bsa, ES, 2-p 23 ml/m^2 16 - 34 Right atrium Value Ref ML dim, ES, A4C 3.4 cm 2.6 - 4.4 SI dim, ES, A4C 5.0 cm 3.4 - 5.3 Estimated RAP 3 mm Hg -------- Legend: (L) and (H) shelia values outside specified reference range. Prepared and electronically signed by Wai Mendoza MD 07/28/2019 11:13
[2019-07-28] MEDS: Enoxaparin(*) 40 MG/0.4 ML SYR SUBCUT SCH (18:02)
[2019-07-29 05:06] LABS: BUN/Creatinine Ratio 18.8 (8-20); Calcium 9.4 mg/dL (8.6-10.3); EGFR African American 91.9 (>60); Potassium 3.6 mmol/L (3.5-5.0)
[2019-07-29] MEDS: glipiZIDE TAB.XL* 2.5 MG PO SCH ×2 (08:58→20:56)
[2019-07-29] MEDS: Escitalopram * 10 MG TAB PO SCH (08:58)
[2019-07-29] MEDS: Lisinopril TAB* 10 MG PO SCH (08:59)
[2019-07-29] MEDS: Carbidopa/Levodop 25/100 MG TAB(*) PO SCH ×3 (08:59→20:56)
[2019-07-29] MEDS: Donepezil TAB* 5 MG PO SCH (08:59)
[2019-07-29] MEDS: Hydrochlorothiazide TAB* 25 MG PO SCH (08:59)
[2019-07-29] MEDS: metFORMIN* 500 MG TAB PO SCH ×3 (09:00→20:56)
[2019-07-29] MEDS: Aspirin 81 mg CHEW TAB* 81 MG TAB.CHEW PO SCH (09:00)
[2019-07-29] MEDS: Atorvastatin* 10 MG TAB PO SCH (09:00)
[2019-07-29] MEDS: amLODIPine TAB* 5 MG PO SCH (09:00)
--- NOTE | 2019-07-29 09:57 | PN ---
Subjective Date of Service: 07/29/19 Interval History: Mr. Clemente is feeling well this morning. He offers no complaints. Feels slightly stronger than yesterday, but has not been OOB yet this morning. Agreeable to rehab. Denies any further focal neurological deficits. No concerns from nursing. Family History: Unchanged from Admission Social History: Unchanged from Admission Past Medical History: Unchanged from Admission Objective Active Medications: Acetaminophen (Tylenol Tab*) 975 mg PO Q8H PRN PAIN - MILD Amlodipine Besylate (Norvasc Tab*) 5 mg PO DAILY [facility] Aspirin (Aspirin 81 Mg Chew Tab*) 81 mg PO DAILY [facility] Atorvastatin Calcium (Lipitor*) 10 mg PO DAILY [facility] Carbidopa/Levodopa (Sinemet 25/100 Tab(*)) 1.5 tab PO TID [facility] Donepezil HCl (Aricept Tab*) 5 mg PO DAILY [facility] Enoxaparin Sodium (Lovenox(*)) 40 mg SUBCUT Q24H [facility] Escitalopram Oxalate (Lexapro *) 10 mg PO DAILY [facility] Glipizide (Glucotrol Xl*) 5 mg PO BID [facility] Hydrochlorothiazide (Hydrodiuril Tab*) 25 mg PO DAILY [facility] Lisinopril (Prinivil Tab*) 40 mg PO DAILY [facility] Metformin HCl (Glucophage*) 500 mg PO TID [facility] Vital Signs - 8 hr 07/29/19 07/29/19 07/29/19 03:49 07:50 09:18 Temperature 97.5 F 97.6 F Pulse Rate 72 65 Respiratory 18 16 16 Rate Blood Pressure 136/68 131/70 (mmHg) O2 Sat by Pulse 95 95 Oximetry Oxygen Devices in Use Now: None Appearance: Elderly male sitting in bed in NAD Ears/Nose/Mouth/Throat: Mucous Membranes Moist Neck: NL Appearance and Movements; NL JVP, Trachea Midline Respiratory: Symmetrical Chest Expansion and Respiratory Effort, Clear to Auscultation Cardiovascular: NL Sounds; No Murmurs; No JVD, RRR Abdominal: NL Sounds; No Tenderness; No Distention Extremities: No Edema Neurological: Alert and Oriented x 3, NL Sensation, - - 1/5 strength with L foot dorsiflexion Lines/Tubes/Other Access: Clean, Dry and Intact Peripheral IV Nutrition: Taking PO's Result Diagrams: 07/27/19 12:59 07/29/19 04:34 Assess/Plan/Problems-Billing Assessment: Mr. 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 - Patient Problems (1) CVA (cerebral vascular accident) Code(s): I63.9 - CEREBRAL INFARCTION, UNSPECIFIED Comment: - Resulting in LLE weakness - CT/CTA brain unremarkable for infarct, shows unchanged ventriculomegaly - MRI not possible as pacer is not MRI compatible - Known PFO from previous echo; BLE US negative for DVT - Appreciate Neuro consult; recommends DAPT for 30 days then aspirin only - Continue aspirin, Plavix, atorvastatin (2) Diabetes mellitus Code(s): E11.9 - TYPE 2 DIABETES MELLITUS WITHOUT COMPLICATIONS Comment: - A1c 6.6% indicating excellent control - Continue metformin, glipizide (3) Parkinson's disease Code(s): G20 - PARKINSON'S DISEASE Comment: - Continue Sinemet, Aricept (4) Hypertension Code(s): I10 - ESSENTIAL (PRIMARY) HYPERTENSION Comment: - Normotensive - Continue lisinopril, amlodipine, HCTZ (5) DVT prophylaxis Comment: - Lovenox (6) Full code status Code(s): Z78.9 - OTHER SPECIFIED HEALTH STATUS Comment: Status and Disposition: Inpatient. Anticipate d/c to [facility] when medically stable. Pending PMRU referral. Attending: Narinder Cee
[2019-07-29] MEDS: Enoxaparin(*) 40 MG/0.4 ML SYR SUBCUT SCH (17:35)
[2019-07-30] MEDS: Hydrochlorothiazide TAB* 25 MG PO SCH (08:58)
[2019-07-30] MEDS: amLODIPine TAB* 5 MG PO SCH (08:58)
[2019-07-30] MEDS: metFORMIN* 500 MG TAB PO SCH ×3 (08:58→20:11)
[2019-07-30] MEDS: Atorvastatin* 10 MG TAB PO SCH (08:59)
[2019-07-30] MEDS: glipiZIDE TAB.XL* 2.5 MG PO SCH ×2 (08:59→20:12)
[2019-07-30] MEDS: Escitalopram * 10 MG TAB PO SCH (08:59)
[2019-07-30] MEDS: Lisinopril TAB* 10 MG PO SCH (08:59)
[2019-07-30] MEDS: Donepezil TAB* 5 MG PO SCH (08:59)
[2019-07-30] MEDS: Aspirin 81 mg CHEW TAB* 81 MG TAB.CHEW PO SCH (08:59)
[2019-07-30] MEDS: Carbidopa/Levodop 25/100 MG TAB(*) PO SCH ×3 (09:00→20:12)
--- NOTE | 2019-07-30 11:11 | PN ---
Subjective Date of Service: 07/30/19 Interval History: Mr. Clemente is feeling "better and better every day." He believes his LLE strength is consistently improving. Slept well overnight and offers no complaints. Denies CP, SOB, N/V. Good appetite. No concerns from nursing. Family History: Unchanged from Admission Social History: Unchanged from Admission Past Medical History: Unchanged from Admission Objective Active Medications: Acetaminophen (Tylenol Tab*) 975 mg PO Q8H PRN PAIN - MILD Amlodipine Besylate (Norvasc Tab*) 5 mg PO DAILY [facility] Aspirin (Aspirin 81 Mg Chew Tab*) 81 mg PO DAILY [facility] Atorvastatin Calcium (Lipitor*) 10 mg PO DAILY [facility] Carbidopa/Levodopa (Sinemet 25/100 Tab(*)) 1.5 tab PO TID RAYMUNDO Donepezil HCl (Aricept Tab*) 5 mg PO DAILY [facility] Enoxaparin Sodium (Lovenox(*)) 40 mg SUBCUT Q24H [facility] Escitalopram Oxalate (Lexapro *) 10 mg PO DAILY [facility] Glipizide (Glucotrol Xl*) 5 mg PO BID RAYMUNDO Hydrochlorothiazide (Hydrodiuril Tab*) 25 mg PO DAILY [facility] Lisinopril (Prinivil Tab*) 40 mg PO DAILY [facility] Metformin HCl (Glucophage*) 500 mg PO TID [facility] Vital Signs - 8 hr 07/30/19 07/30/19 07/30/19 04:03 07:23 09:20 Temperature 97.4 F 97.9 F Pulse Rate 65 73 Respiratory 16 18 18 Rate Blood Pressure 134/76 119/75 (mmHg) O2 Sat by Pulse 96 95 Oximetry Oxygen Devices in Use Now: None Appearance: Elderly male sitting in bed in NAD Ears/Nose/Mouth/Throat: Mucous Membranes Moist Neck: NL Appearance and Movements; NL JVP, Trachea Midline Respiratory: Symmetrical Chest Expansion and Respiratory Effort, Clear to Auscultation Cardiovascular: NL Sounds; No Murmurs; No JVD Abdominal: NL Sounds; No Tenderness; No Distention Extremities: No Edema Neurological: Alert and Oriented x 3, NL Sensation, - - BLE 5/5 plantar fexion, LLE 2/5 dorsiflexion, RLE 5/5 dorsiflexion Lines/Tubes/Other Access: Clean, Dry and Intact Peripheral IV Nutrition: Taking PO's Result Diagrams: 07/27/19 12:59 07/29/19 04:34 Assess/Plan/Problems-Billing Assessment: Mr. 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 - Patient Problems (1) CVA (cerebral vascular accident) Code(s): I63.9 - CEREBRAL INFARCTION, UNSPECIFIED Comment: - Resulting in LLE weakness - CT/CTA brain unremarkable for infarct, shows unchanged ventriculomegaly - MRI not possible as pacer is not MRI compatible - Known PFO from previous echo; BLE US negative for DVT - Appreciate Neuro consult; recommends DAPT for 30 days then aspirin only - Continue aspirin, Plavix, atorvastatin (2) Diabetes mellitus Code(s): E11.9 - TYPE 2 DIABETES MELLITUS WITHOUT COMPLICATIONS Comment: - A1c 6.6% indicating excellent control - Continue metformin, glipizide (3) Parkinson's disease Code(s): G20 - PARKINSON'S DISEASE Comment: - Continue Sinemet, Aricept (4) Hypertension Code(s): I10 - ESSENTIAL (PRIMARY) HYPERTENSION Comment: - Normotensive - Continue lisinopril, amlodipine, HCTZ (5) DVT prophylaxis Comment: - Lovenox (6) Full code status Code(s): Z78.9 - OTHER SPECIFIED HEALTH STATUS Comment: Status and Disposition: Inpatient. Anticipate d/c to [facility] when bed available. Pending [facility] referral. Attending: Narinder Cee
[2019-07-30] MEDS: Clopidogrel TAB* 75 MG PO SCH (14:39)
[2019-07-30] MEDS: Enoxaparin(*) 40 MG/0.4 ML SYR SUBCUT SCH (18:20)
[2019-07-31] MEDS: Clopidogrel TAB* 75 MG PO SCH (10:25)
[2019-07-31] MEDS: Atorvastatin* 10 MG TAB PO SCH (10:25)
[2019-07-31] MEDS: glipiZIDE TAB.XL* 2.5 MG PO SCH (10:25)
[2019-07-31] MEDS: Escitalopram * 10 MG TAB PO SCH (10:25)
[2019-07-31] MEDS: Aspirin 81 mg CHEW TAB* 81 MG TAB.CHEW PO SCH (10:26)
[2019-07-31] MEDS: Hydrochlorothiazide TAB* 25 MG PO SCH (10:26)
[2019-07-31] MEDS: Lisinopril TAB* 10 MG PO SCH (10:26)
[2019-07-31] MEDS: metFORMIN* 500 MG TAB PO SCH (10:26)
[2019-07-31] MEDS: Carbidopa/Levodop 25/100 MG TAB(*) PO SCH (10:27)
[2019-07-31] MEDS: Donepezil TAB* 5 MG PO SCH (10:28)
[2019-07-31] MEDS: amLODIPine TAB* 5 MG PO SCH (10:28)
[2019-07-31 19:30] VITALS: BP 144/77
--- NOTE | 2019-07-31 20:25 | DS ---
CC: Dr. Michael De Los Santos * DISCHARGE SUMMARY: DATE OF ADMISSION: 07/27/19 DATE OF DISCHARGE: 07/31/19 PRIMARY CARE PROVIDER: Dr. Michael De Los Santos. ATTENDING PHYSICIAN: Kandy Holloway MD * (DICTATED BY MATTHEW DUNLAP NP) PRIMARY DIAGNOSIS: 1. Cerebrovascular accident, suspected anterior cerebral artery partial stroke. SECONDARY DIAGNOSES: 1. Diabetes mellitus type 2. 2. Parkinson disease. 3. Hypertension. STUDIES WHILE IN THE HOSPITAL: 1. Lumbar spine CT on 07/27/19 read as no evidence of fracture. Multilevel degenerative disk disease and facet osteoarthritis with changes most prominent at the L3-L4, L4-L5, and L5-S1 levels. 2. Head CT on 07/27/19 read as no acute intracranial abnormality by CT. Mild chronic small vessel disease is likely. Unchanged ventriculomegaly. No acute occlusive disease, aneurysm, or severe stenosis. Hypertrophic degenerative changes resulted in moderate external compression of the left vertebral artery at the level of C3-C4, (approximately 50%). Correlate clinically for bow paul 's syndrome. No acute occlusion or severe stenosis in the remaining major neck vessels. C4 through C7 ACDF and corpectomy with mesh cage reconstruction. There is at least moderate spinal canal stenosis at C5-C6 and C6-C7. 3. EKG on 07/27/19 showed normal sinus rhythm, first-degree A-V block, rate of 86, right bundle-branch block, Q waves in inferior leads, QTc 492. 4. Chest x-ray on 07/27/19 reads as no active cardiopulmonary disease. 5. Brain CT on 07/28/19 reads as no acute intracranial abnormality within the limitations of the exam. Unchanged ventriculomegaly. Depending on the clinical context, normal pressure hydrocephalus could be considered. 6. Transthoracic echocardiogram on 07/28/19 reads as left ventricular cavity size is mildly reduced. Wall thickness is mildly to moderately increased. Sigmoid septum present. Systolic pressure is normal. The estimated ejection fraction is 60% to 65%. Doppler parameters are consistent with abnormal left ventricular relaxation (grade 1 diastolic dysfunction). The right ventricular cavity size is normal. Wall thickness is mildly increased. The interventricular septum appears dyssynchronous. There is trace MR. Findings are consistent with mild . There is trace to mild AR. There is trace to mild TR. The prior study on 07/26/19 reported a patent foramen ovale, which was not confirmed this time, otherwise, similar. 7. Bilateral lower extremity venous Doppler study on 07/28/19 reads as no right lower or left lower extremity deep vein thrombosis. CONSULTATION WHILE IN THE HOSPITAL: 1. Dr. Ordonez from Neurology. HISTORY OF PRESENT ILLNESS AND HOSPITAL COURSE: Mr. Clemente is a 79-year-old male with past medical history of Parkinson disease, type 2 diabetes, hypertension, second-degree heart block status post pacemaker, prostate cancer status post prostatectomy, and depression, who presented to the emergency room on 07/27/19 with complaints of left lower extremity weakness. Please see the history and physical by Dr. Rushing for a complete summary of the events leading up to this hospitalization. In short, the patient had been sitting in a chair and when he wanted to stand from the chair, he slid down because he was unable to move his left leg. He typically uses a cane although this was significantly worse than his baseline. The patient's found him on the floor and called EMS. In the emergency room, the patient had imaging as noted above. Labs were mostly unremarkable except for an elevated lactic. Vitals were stable. The patient was admitted by the hospitalist service for further evaluation. The patient was started on aspirin and Plavix for suspected CVA. It should be noted that the patient cannot have an MRI as his pacemaker is not compatible and so he did have a repeat CT 24 hours later, which was unchanged. The patient 's left lower extremity symptoms improved though have persisted to some degree. He did have an echo as noted above. He was noted on previous echo to have a PFO. The bubble study was not done at this time. There was an ultrasound of his legs to ensure no evidence of VTE. He was monitored on telemetry without any evidence of arrhythmias except for a first-degree heart block. He was seen in consultation by Dr. Ordonez from Neurology who suspected this was an anterior cerebral artery partial stroke. Based on the patient's symptoms, he recommended dual antiplatelet therapy. He indicated that he would speak with Dr. Boland, the patient's outpatient neurologist, to ensure he is aware of left vertebral compression and ventriculomegaly although these do not appear to be acute findings and are not causing any concern at this time. Neurology signed off on the case. The patient was seen by physical therapy who indicate that he will benefit from rehab prior to returning home. The patient remained in the hospital over the weekend. This morning, the patient was evaluated by [facility], and they did accept the patient for transfer downstairs today. On exam, the patient offers no complaints. He believes his left lower extremity weakness is improving. He is alert and oriented x4. Plantar flexion to right foot is 5/5 and 4/5 on the left foot. Dorsiflexion on the right foot is 5/5 and on the left foot is 3/5. Heart has a regular rate and rhythm without murmurs, rubs, or gallops. His lungs are clear to auscultation without rhonchi, wheezes, or rubs. There is no edema. Mr. Clemente is stable for discharge today. Most recent vital signs are as follows; temp 97.5, heart rate 60, respiratory rate 16, oxygen saturation 95% on room air, blood pressure 127/73. DISCHARGE MEDICATIONS: New medications: 1. Aspirin 81 mg p.o. daily. 2. Plavix 75 mg p.o. daily. Continued medications: 1. Amlodipine 5 mg p.o. daily. 2. Sinemet 25/100 1.5 tab p.o. t.i.d. 3. Aricept 5 mg p.o. daily. 4. Escitalopram 10 mg p.o. daily. 5. Glipizide 5 mg p.o. b.i.d. 6. Hydrochlorothiazide 25 mg p.o. daily. 7. Lisinopril 40 mg p.o. daily. 8. Metformin 500 mg p.o. t.i.d. 9. Pravastatin 40 mg p.o. daily. DISCHARGE PLAN: Mr. Clemente will be discharged to [facility]. Activity will be as tolerated. Diet will be heart healthy. Medications are as noted above as indicated by neurology. The patient should be on dual antiplatelet therapy for 30 days. After 30 days, he may stop Plavix though should continue aspirin indefinitely. His medications otherwise remained unchanged as on his current medications, he has good blood pressure control and good lipid control. He will need to follow up with a provider while at [facility] and should follow up with his primary care provider after discharge. He should return to the emergency room for any worsening of symptoms, shortness of breath, lightheadedness, dizziness, chest discomfort, high fevers, chills, night sweats, loss of consciousness, or any other worrisome signs or symptoms. DISCHARGE CONDITION: Stable. DISCHARGE DISPOSITION: [facility]. This is a summarized report of a complex medical history and hospital stay. For further details, please see the entire medical record. TIME SPENT: Approximately 40 minutes was spent on this discharge. MATTHEW DUNLAP, DIRECTOR OF [employer] [id number]/CPS #: [id number] CHELSEA
== END 2019-07-31 13:00 | DRG 66 ==
LOC: ED 11:39 → MEDTELE 15:57 → OBSVTOIN 15:57
PROVIDERS: ADMIT Internal Medicine; ATTEND Internal Medicine
DX: I63.9 Cerebral infarction, unspecified (principal); G83.14 Monoplegia of lower limb affecting left nondominant side; G20 Parkinson's disease; F02.80 Dementia in other diseases classified elsewhere, unspecified severity, without behavioral disturbance, psychotic disturbance, mood disturbance, and anxiety; E11.9 Type 2 diabetes mellitus without complications; I10 Essential (primary) hypertension; F32.9 Major depressive disorder, single episode, unspecified; I44.1 Atrioventricular block, second degree; Z95.0 Presence of cardiac pacemaker; Z85.46 Personal history of malignant neoplasm of prostate; Z79.84 Long term (current) use of oral hypoglycemic drugs; Z79.899 Other long term (current) drug therapy; Z88.8 Allergy status to other drugs, medicaments and biological substances; Z87.891 Personal history of nicotine dependence
CPT/HCPCS: 36415; 70450; 70496; 70498; 71045; 72131; 80048; 80053; 80061; 81003; 83036; 83605; 83735; 84484; 85025; 85610; 93005; 93306; 93970; 99283; A9270-GY; G8978-GP-CL; G8979-GP-CI; G8979-GP-CJ; J1650; Q9967

== ENCOUNTER 2019-07-31 11:19 | Inpatient (IN) | payer MEDICARE, OTHER ==
[2019-07-31] MEDS ORDERED: Bisacodyl SUPP* 10 MG SUPP PR PRN (13:44)
[2019-07-31] MEDS ORDERED: Senna TAB 8.6 mg* TAB PO PRN (13:44)
[2019-07-31] MEDS ORDERED: Acetaminophen TAB* 325 MG PO PRN (13:44)
[2019-07-31] MEDS ORDERED: Al Hydrox/Mg Hydrox/Simet LIQ* 30 ML UDC PO PRN (13:44)
[2019-07-31] MEDS ORDERED: Magnesium Hydroxide LIQ* 30 ML UDC PO PRN (13:44)
[2019-07-31] MEDS: Carbidopa/Levodop 25/100 MG TAB(*) PO SCH ×2 (14:52→20:58)
[2019-07-31] MEDS: Enoxaparin(*) 30 MG/0.3 ML SYR SUBCUT SCH (14:52)
--- NOTE | 2019-07-31 15:19 | HP ---
CC: Dr. De Los Santos; Dr. Boland * REHABILITATION ADMISSION: DATE OF ADMISSION: 07/31/19 PRIMARY CARE PROVIDER: Dr. De Los Santos. NEUROLOGIST: Dr. Boland. REASON FOR ADMISSION: Stroke with left leg weakness. HISTORY OF PRESENT ILLNESS: This is a 79-year-old man with Parkinson's disease , mild dementia, diabetes mellitus, and a pacemaker for heart block, who on 04/07 woke up in his recliner at home and went to get up, but slid out of the chair. His left leg was weak. His came down in the morning and found him on the floor. He was brought to the emergency room. CTA of the head showed mild chronic small vessel disease as well as ventriculomegaly. Neck CTA showed spondylosis with moderate external compression of the left vertebral artery at C3-4. It was also noted that he is status post C4 to C7 ACDF and has moderate C5 to C7 central stenosis. Lumbar spine CT just showed spondylosis. It was felt that his symptoms were likely due to an anterior cerebral artery stroke. He is known from prior echo to have a patent foramen ovale. Transthoracic echo here showed ejection fraction of 60% to 65% and mild aortic stenosis. He did not have a bubble study. Bilateral lower extremity Dopplers were negative for DVT. Repeat CT of the head on 07/28/19 showed no new changes. He cannot have an MRI secondary to his pacemaker. He was seen by Dr. Ordonez of Neurology and the plan is for him to be on dual antiplatelet therapy of baby aspirin and Plavix for 30 days and then switch to just aspirin. He normally sees Dr. Boland for his Parkinson's disease. This was discovered when he had more difficulty walking a few years ago. He normally uses a cane at home and since the hospitalization and stay at [facility] for pneumonia has been requiring some assistance from his for dressing and bathing, but remained independent toileting. With physical therapy here, he has required a maximum amount of assistance for bed mobility, and a moderate amount of assistance for transfers and ambulating 120 feet with a rolling walker. With occupational therapy, he has required a maximum amount of assistance for dressing and bathing and a maximum amount of assistance for toileting. Despite being diabetic, his hemoglobin A1c here was measured at 6.6 and so he has not been placed on any insulin coverage. He has been receiving Lovenox for DVT prophylaxis. PAST MEDICAL HISTORY: 1. Parkinson's disease. 2. Dementia. 3. [id number] diabetes mellitus, well controlled. 4. Hypertension. 5. History of major depressive disorder. 6. Heart block with pacemaker. 7. History of prostate cancer, status post prostatectomy. 8. Status post C4 to C7 ACDF and corpectomy with mesh reconstruction. 9. Left vertebral artery external compression from C3-4 spondylosis, see history of present illness. 10. Cervical moderate stenosis at C5 to C7. 11. Patent foramen ovale. 12. History of pneumonia with hospitalization in December of 2018. 13. Stroke, see history of present illness. 14. skin cancer with pending lesion removal from forehead in August 2019 MEDICATIONS: 1. Sinemet 25/100 one and half tablets t.i.d. 2. Metformin 500 mg t.i.d. 3. Glipizide 5 mg b.i.d. 4. Amlodipine 5 mg q. day. 5. Lisinopril 40 mg q. day. 6. Hydrochlorothiazide 25 mg q. day. 7. Pravastatin 40 mg q. day, which is being substituted with atorvastatin 10 mg q. day. 8. Donepezil 5 mg q. day. 9. Escitalopram 10 mg q. day. 10. Aspirin 81 mg q. day. 11. Plavix 75 mg q. day. ALLERGIES: CEPHALEXIN, LEVOFLOXACIN, and ADHESIVE TAPE. FAMILY HISTORY: Noncontributory. SOCIAL HISTORY: He lives with his , Skye, who is his healthcare proxy if he cannot make decisions for himself. 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 He quit smoking in 2003. He rarely drinks alcohol. His home has 2 steps to enter and then has multiple levels. He can stay on 1 floor. REVIEW OF SYSTEMS: See history of present illness and past medical history. The remainder of a 13-system review was completed. No other significant findings. PHYSICAL EXAMINATION GENERAL: Well developed, well nourished, appearing stated age. Mental Status: No acute distress. Alert and appropriate. VITAL SIGNS: Temperature 97.8, heart rate 80, respirations 16, oxygenation 97% on room air, blood pressure 120/57. HEENT: Oropharynx: Poor dentition with moist mucous membranes. NECK: Supple. No lymphadenopathy. LUNGS: Clear to auscultation bilaterally. HEART: Generally regular rate and rhythm with occasionally skipped beats. ABDOMEN: Active bowel sounds. Soft, nontender, nondistended. EXTREMITIES: No clubbing, cyanosis, or edema. He does have some cogwheeling in his right arm. MUSCULOSKELETAL: He has functional range of motion of all of his major joints. NEUROLOGICAL: Cranial nerves II through XII are intact with decreased hearing in his right ear. He demonstrates normal sensation in all 4 extremities. Manual muscle testing shows 5/5 strength in bilateral upper extremities and throughout his right lower extremity. In the left lower extremity, hip flexion 5, knee extension 3, dorsiflexion trace. SKIN: Centrally on his forehead, he has a lesion that is a known skin cancer that has been pending removal by Dr. Montes in August. On his body, he has evidence of sun damage to his skin on his arms, face, and upper back. LABORATORY DATA: On 07/27/19, hemoglobin A1 is 6.6. On 07/29/19, sodium 139, potassium 3.6, BUN 18, creatinine 0.96, glucose 143. On 07/27/19, white blood cells 9.6, hemoglobin 14.8, hematocrit 44, platelets 185. IMPRESSION: A 79-year-old man with Parkinson's disease and now left hemiplegia with primarily left leg weakness secondary to stroke. He will be admitted to [facility] so that he can return to living with his . PLAN: 1. Stroke with left leg weakness. Dual antiplatelet therapy with Plavix and aspirin until 08/26/19, then switch to baby aspirin daily alone. Follow up with Dr. Boland, who is his regular neurologist. Continue with statin therapy. He is currently on Lipitor substituted for his normal pravastatin. 2. DVT prophylaxis: Lovenox and VARGAS stockings. 3. Parkinson's disease. Continue with Sinemet 1-1/2 tablets t.i.d. Follow up with Dr. Boland as needed. 4. Hypertension. Continue with amlodipine, lisinopril and hydrochlorothiazide. 5. Diabetes mellitus. This appears to be under reasonable control. Continue with his current metformin and glipizide. We will check fingersticks daily. He should follow a healthy heart diet. 6. Dementia. Continue with Aricept. Speech will do a screen. 7. Depression. Continue with escitalopram. 8. Impaired mobility. He will be seen by Physical Therapy for bed mobility, transfer, gait and stair training using a walker. 9. Impaired self-care. He will be seen by Occupational Therapy for ADL training and equipment evaluation. 10. Advance directives: He is a full code. His is his healthcare proxy if he cannot make decisions for himself. ESTIMATED LENGTH OF STAY: Two weeks and then return to home. This will be discussed further at the interdisciplinary plan of care meeting. [id number]/CPS #: [id number] CHELSEA
[2019-07-31] MEDS: Atorvastatin* 10 MG TAB PO SCH (16:51)
[2019-07-31] MEDS: glipiZIDE TAB.XL* 5 MG PO SCH (16:51)
[2019-07-31] MEDS: metFORMIN* 500 MG TAB PO SCH (16:51)
[2019-08-01 06:18] LABS: ABS Basophils 0.1 10^3/ul (0-0.2); ABS Eosinophils 0.3 10^3/ul (0-0.6); ABS Lymphocytes 2.5 10^3/ul (1.0-4.8); ABS Monocytes 0.7 10^3/ul (0-0.8); Eosinophil % 3.7 %; Hematocrit 42 % (42-52); Hemoglobin 14.4 g/dL (14.0-18.0); Lymphocyte % 33.2 %; Mean Corpuscular HGB Conc 35 g/dL (31-36); Mean Corpuscular Hemoglobin 31 pg (27-31); Mean Corpuscular Volume 90 fL (80-94); Mean Platelet Volume 7.8 fL (7.4-10.4); Nucleated Red Blood Cells % 0.1; Platelet Count 174 10^3/uL (150-450); Red Blood Count 4.66 10^6 /uL (4.18-5.48); Red Cell Distribution Width 16 % (10-15); White Blood Count 7.5 10^3/uL (3.5-10.8)
[2019-08-01 06:33] LABS: Albumin/Globulin Ratio 1.3 (1-3); BUN/Creatinine Ratio 20.6 (8-20); Calcium 9.5 mg/dL (8.6-10.3); EGFR African American 90.8 (>60); Potassium 3.5 mmol/L (3.5-5.0); Total Bilirubin 1.1 mg/dL (0.2-1.0)
--- NOTE | 2019-08-01 09:14 | PN ---
Progress Note Date of Service: 08/01/19 Note: DAYANNA YATES was visited. Nursing and therapy notes read and reviewed. No chest pain, shortness of breath or abdominal pain. Current Medications: Active Medications Generic Name Dose Route Start Last Admin Trade Name Freq PRN Reason Stop Dose Admin Acetaminophen 650 mg 07/31/19 13:44 Tylenol Tab* PO Q6H PRN FEVER > 101 Al Hydrox/Mg Hydrox/Simethicone 30 ml 07/31/19 13:44 Maalox Plus* PO Q6H PRN INDIGESTION Amlodipine Besylate 5 mg 08/01/19 09:00 Norvasc Tab* PO DAILY [facility] Aspirin 81 mg 08/01/19 09:00 Aspirin Ec Tab* PO DAILY [facility] Atorvastatin Calcium 10 mg 07/31/19 17:00 07/31/19 16:51 Lipitor* PO 10 mg 1700 RAYMUNDO Administration Bisacodyl 10 mg 07/31/19 13:44 Dulcolax Supp* [place] DAILY PRN CONSTIPATION Carbidopa/Levodopa 1.5 tab 07/31/19 14:00 07/31/19 20:58 Sinemet 25/100 Tab(*) PO 1.5 tab TID RAYMUNDO Administration Clopidogrel Bisulfate 75 mg 08/01/19 09:00 Plavix Tab* PO DAILY [facility] Docusate Sodium 100 mg 07/31/19 13:44 Colace Cap* PO BID PRN CONSTIPATION Donepezil HCl 5 mg 08/01/19 09:00 Aricept Tab* PO DAILY [facility] Enoxaparin Sodium 30 mg 07/31/19 14:00 07/31/19 14:52 Lovenox(*) SUBCUT 30 mg Q24H RAYMUNDO Administration Escitalopram Oxalate 10 mg 08/01/19 09:00 Lexapro * PO DAILY [facility] Glipizide 5 mg 07/31/19 17:00 07/31/19 16:51 Glucotrol Xl* PO 5 mg 0800,1700 RAYMUNDO Administration Hydrochlorothiazide 25 mg 08/01/19 09:00 Hydrodiuril Tab* PO DAILY [facility] Lisinopril 40 mg 08/01/19 09:00 Prinivil Tab* PO DAILY [facility] Magnesium Hydroxide 30 ml 07/31/19 13:44 Milk Of Magnesia Liq* PO Q6H PRN CONSTIPATION Metformin HCl 500 mg 07/31/19 17:00 07/31/19 16:51 Glucophage* PO 500 mg 0800,1200,1700 RAYMUNDO Administration Senna 2 tab 07/31/19 13:44 Senokot 8.6 Mg Tab* PO BEDTIME PRN CONSTIPATION Vital Signs: Vital Signs Temp Pulse Resp BP Pulse Ox 97.9 F 73 12 135/73 96 08/01/19 06:10 08/01/19 06:10 08/01/19 06:10 08/01/19 06:10 08/01/19 06:10 Lab Results: Laboratory Results - last 24 hr 07/31/19 08/01/19 08/01/19 14:54 06:09 06:09 WBC 7.5 RBC 4.66 Hgb 14.4 Hct 42 MCV 90 MCH 31 MCHC 35 RDW 16 H Plt Count 174 MPV 7.8 Neut % (Auto) 52.9 Lymph % (Auto) 33.2 [place] % (Auto) 9.4 Eos % (Auto) 3.7 Baso % (Auto) 0.8 Absolute Neuts (auto) 4.0 Absolute Lymphs (auto) 2.5 Absolute Monos (auto) 0.7 Absolute Eos (auto) 0.3 Absolute Basos (auto) 0.1 Absolute Nucleated RBC 0.0 Nucleated RBC % 0.1 Sodium 138 Potassium 3.5 Chloride 103 Carbon Dioxide 27 Anion Gap 8 BUN 20 Creatinine 0.97 Est GFR ( Amer) 90.8 Est GFR (Non-Af Amer) 75.0 BUN/Creatinine Ratio 20.6 H Glucose 130 H POC Glucose (mg/dL) 92 Calcium 9.5 Total Bilirubin 1.10 H AST 27 ALT 23 Alkaline Phosphatase 42 Total Protein 7.0 Albumin 4.0 Globulin 3.0 Albumin/Globulin Ratio 1.3 Exam: GEN: no acute distress. alert and appropriate. LUNGS: clear to auscultation bilaterally after coughing to clear phlegm CV: regular rate and rhythm ABD: + bowel sounds, soft, non-tender and non-distended EXT: no edema. Some cogwheeling in RUE. NEURO: CN II-XII intact except for some right hearing loss. Motor 5/5 BUE and RLE. Motor LLE hip flexion 4+, knee ext 3, DF 4 (better). Sensation intact x4. Assessment/Plan: 79-year-old man with Parkinson's disease and now left hemiplegia with primarily left leg weakness secondary to stroke. 1. Stroke with left leg weakness. Dual antiplatelet therapy with Plavix and aspirin until 08/26/19, then switch to baby aspirin daily alone. Follow up with Dr. Boland, who is his regular neurologist. Continue with statin therapy. He is currently on Lipitor substituted for his normal pravastatin. 2. DVT prophylaxis: Lovenox and VARGAS stockings. 3. Parkinson's disease. Continue with Sinemet 1-1/2 tablets t.i.d. Follow up with Dr. Boland as needed. 4. Hypertension. Continue with amlodipine, lisinopril and hydrochlorothiazide. 5. Diabetes mellitus. HgbA1c 6.6 at admit. Continue with his current metformin and glipizide. Fingersticks daily without coverage. Healthy heart diet. 6. Dementia. Continue with Aricept. Passed BIMs. 7. Depression. Continue with escitalopram. 8. Impaired mobility. PT 9. Impaired self-care. OT 10. Urinary incontinence: s/p prostatectomy but denies use of a pad at home. Timed voids. Check UA and PVRs. 11. Advance directives: He is a full code. His is his healthcare proxy if he cannot make decisions for himself. 12. Estimated LOS: This will be discussed further at the interdisciplinary plan of care meeting. 08/01/19 09:10
[2019-08-01] MEDS: glipiZIDE TAB.XL* 5 MG PO SCH ×2 (09:31→17:21)
[2019-08-01] MEDS: metFORMIN* 500 MG TAB PO SCH ×3 (09:31→17:21)
[2019-08-01] MEDS: Aspirin EC TAB* 81 MG TAB.EC PO SCH (09:32)
[2019-08-01] MEDS: Carbidopa/Levodop 25/100 MG TAB(*) PO SCH ×3 (09:32→20:21)
[2019-08-01] MEDS: amLODIPine TAB* 5 MG PO SCH (09:32)
[2019-08-01] MEDS: Hydrochlorothiazide TAB* 25 MG PO SCH (09:33)
[2019-08-01] MEDS: Escitalopram * 10 MG TAB PO SCH (09:33)
[2019-08-01] MEDS: Clopidogrel TAB* 75 MG PO SCH (09:33)
[2019-08-01] MEDS: Donepezil TAB* 5 MG PO SCH (09:33)
[2019-08-01] MEDS: Lisinopril TAB* 10 MG PO SCH (09:34)
--- NOTE | 2019-08-01 12:39 | PMRUTEAM ---
PMRU: Team Meeting Current Status: Physical Therapy: Current Status Current Rolling Status Partial/Moderate Current Supine <-> Sit Status Partial/Moderate Current Sit <-> Stand Status Partial/Moderate Current Bed <-> Chair Status Partial/Moderate Transfer/Bed Mobility Rolling Walker Recommended Devices Current Picking Up Object Substantial/Maximal Status Current Car Transfer Status Not attempted due to Current Ambulation Assistance Partial/Moderate Status Ambulation Assistive Device Rolling Walker Ambulation Conditions Two or More Turns Current Ambulation Distance 2x25', 1x50' Current Wheelchair Propulsion Supervision/Touching Ability Status Wheelchair Distance (ft) 150' Current Stair Climbing Status Dependent Stair Climbing Assistive Left Railing,Right Railing Devices Number of Stairs Climbed 1 Current Curb Assistance Status Not attempted Objective Comments WC propulsion with use of BUEs on even surfaces with >2 turns, close supervision Occupational Therapy: Current Status Current Upper Body Dressing Partial/Moderate Status Current Lower Body Dressing Substantial/Maximal Status Current Footwear Status Dependent Current Bathing Status Substantial/Maximal Current Grooming Status Supervision/Touching Current Toileting Status Substantial/Maximal Current Toilet Transfer Status Dependent Current Eating Status Setup or Clean-up Assist Nursing: Current Status Skin Deviation Description [ none none] Bladder Current Status pt incontinent and is not self aware Bowel Current Status BM on the Nutrition Current Status heart healthy Medication Current Status pt has knowledge of medications and is aware of meds that he takes Rec Therapy: Current Status Summary of Assessment and Recreation Therapy assessment complete and pt. is Clinical Impression aware of services. Pt. is open to leisure visits and pet therapy while on the unit. Treatment Goals Pt. will engage in leisure activities while on the unit. Treatment Plan Provide recreation therapy services and encourage involvement. Nutrition: Current Status Monitoring Pt adm w/ CVA (07/27), transferred to PMRU today ( 07/31); hx HTN, HLD, T2DM; on heart healthy diet. Attempted visit today, though RN in w/ pt; will f/ u as able. Chart reviewed (including prev adm 07/27 -07/31): noted pt w/ good intake; consumed 100% majority of meals on prev adm. He denies wt changes per nursing screen; wt on prev adm 191lb, prev wt on record 190lb (12/2018). Pt does not meet clinical criteria for malnutrition. No noted development in GI s/sx on prev adm (last BM 07/29 per chart). Tolerating regular textures w/o evidence of difficulty chewing/swallowing on prev adm; will continue to monitor tolerance and recommend HEARING AID ASSEMBLY SUPERVISOR eval as indicated. No pressure related skin breakdown per chart. Labs reviewed ( 07/29): Electrolytes WNL; BG 143, A1c 6.6%; will continue to monitor labs. Recommend adding consistent carb to diet order for improved glycemic control given hx T2DM; will follow. Given new adm, will schedule f/u for 08/04 per protocol . Will continue to monitor and provide further nutrition intervention as indicated. Goals: Physical Therapy: Goals Goals to Be Accomplished in ( 18-21 Days) Goal: Rolling Assistance Independent Goal Supine <-> Sit Status Independent Goal Sit <-> Stand Status Independent Goal Bed <-> Chair Status Independent Transfer/Bed Mobility Rolling Walker Recommended Devices Goal: Picking Up Object Supervision/Touching Goal: Car Transfer Status Supervision/Touching Goal: Ambulation Assistance Supervision/Touching Ambulation Assistive Devices Rolling Walker Ambulation Distance (ft) 150 Goal: Wheelchair Propulsion Not Applicable Ability Wheelchair Distance (ft) 1x150' Goal: Stairs Assistance Supervision/Touching Stairs Recommended Devices Two Rails Number of Stairs 4 Goal: Curb Assistance Supervision/Touching Goal: Home Exercise Program Supervision/Touching Assistance Occupational Therapy: Goals Goals to be Completed in (Days 18-21 ) Goal Upper Body Dressing Independent Routine Goal Lower Body Dressing Independent Routine Goal Footwear Status Partial/Moderate Goal Bathing Routine (OT) Supervision/Touching Goal Grooming Routine Independent Goal Toilet Hygiene and Independent Clothing Management Routine Goal Toilet Transfer Routine Independent Goal Functional Transfers for Independent ADL Goal Feeding Routine Independent Nutrition: Goals Intervention Goals 1) Recommend adding consistent carb to diet order 2) Adequate po intake to support lean body mass and hydration status 3) Maintain fluid/electrolyte balance w/ adequate po intake 4) Improve glycemic control w/ adequate po and consistent carb intake in the setting of T2DM 5) Maintain bowel regularity w/ adequate po intake w/o development of diarrhea/constipation Nursing: Goals Bladder Goal independent Bowel Goal independent Nutrition Goal eat 100% of meal Medication Goal independent Care Plan: Care Plan Cardiovascular- Improve/Maintain Start: 07/31/19 21:10 Freq: DAILY@0700,1900 Status: Active Target: 08/01/19 Protocol: Activity Type Activity Date Activity User E-Sign Co-Sign Detail Recorded Client Recorded Date Recorded By Document 08/01/19 07:00 [id number] 08/01/19 10:42 [id number] 08/01/19 07:00 PMRU Outcome: Cardiovascular Vital Signs q Shift for 48hrs Then BID Yes Daily Weight Ordered No Current Cardiovascular Outcome/Goal Maintain/ Achieve Baseline HR, BP , Perfusion Maintain/ Improve Perfusion Free of Abnormal Cardiac Symptoms Progression Toward Outcome/Goal Progressing Education-Improve/Maintain Start: 07/31/19 21:10 Freq: [id number] Status: Active Target: 08/01/19 Protocol: Activity Type Activity Date Activity User E-Sign Co-Sign Detail Recorded Client Recorded Date Recorded By Document 08/01/19 07:00 [id number] 08/01/19 10:42 [id number] 08/01/19 07:00 PMRU Outcome: Education Current Education Outcome/Goals Demonstrate/ Verbalize Understanding of Written Discharge Instructions Encourage Questions Progression Toward Outcome/Goals Progressing Metabolic Status- Improve/Maintain Start: 07/31/19 21:10 Freq: DAILY@ Status: Active Target: 08/01/19 Protocol: Activity Type Activity Date Activity User E-Sign Co-Sign Detail Recorded Client Recorded Date Recorded By Document 08/01/19 07:00 [id number] 08/01/19 10:42 [id number] 08/01/19 07:00 PMRU Outcome: Metabolic Status Have Fingersticks Been Ordered Yes Fingerstick Order Frequency Q Day Current Metabolic Status Outcome/Goals Maintain/ Improve Metabolic Status Demonstrate Knowledge of Prevention/ Treatment of Metabolic Imbalances Progression Toward Outcome/Goals Progressing Mobility- Improve/Maintain Start: 07/31/19 15:46 Freq: DAILY@ Status: Active Target: 08/21/19 Protocol: Activity Type Activity Date Activity User E-Sign Co-Sign Detail Recorded Client Recorded Date Recorded By Document 08/01/19 11:50 [id number] 08/01/19 11:51 [id number] 08/01/19 11:50 PMRU Outcome: Mobility Physical Therapy Evaluation and Yes Treatment Activity OOB with Assistance Yes WBAT Yes NWB No TTWB No Device Yes Assistance Yes Patient to be seen 5x/wk for 60-120 min/ Therex day for: Mobility Training Gait Training Balance Other Other Therapy Comment Family training , discharge planning Current Mobility Outcome/Goals Improve Mobility Status Other Mobility Outcome/Goals Pt demonstrates improvements with following short, one step directions throughout session, however, continues to exhibit poor safety awareness and impulsivity with fatigue. Pt requires 100 % VCs for B hand placement with transfers, completing sit <>stand and stand step transfers with RW/gait belt and min-mod Ax1 to the right due to impaired coordination, impaired LLE proprioception, impaired standing balance, and impaired safety awareness. Pt will continue to benefit from PT intervention to decrease burden of care, decrease risk of falls and maximize independence with mobility to promote safe d/c plan. Progression Toward Outcome/Goals Progressing Bed Mobility Yes: Independent Transfers Yes: Independent with RW Gait x ft Yes: Supervision with RW, 150' W/C Mobility x ft No Up/Down Stairs Yes: Supervision with 2 rails, 4 steps With HEP Yes: Supervision Neurological- Improve/Maintain Start: 07/31/19 21:10 Freq: DAILY@0700,1900 Status: Active Target: 08/01/19 Protocol: Activity Type Activity Date Activity User E-Sign Co-Sign Detail Recorded Client Recorded Date Recorded By Document 08/01/19 07:00 [id number] 08/01/19 10:42 [id number] 08/01/19 07:00 PMRU Outcome: Neurological Weakness/Aphasia Weakness Left Side Current Neurological Outcome/Goals Improve Neurological Status Prevent Avoidable Neurological Decline Maintain/ Improve Strength/ROM Progression Toward Outcome/Goals Progressing Rec Therapy- Improve/Maintain Start: 07/31/19 15:42 Freq: DAILY@0700,1900 Status: Active Target: 08/01/19 Protocol: Activity Type Activity Date Activity User E-Sign Co-Sign Detail Recorded Client Recorded Date Recorded By Document 07/31/19 15:43 [id number] 07/31/19 15:43 [id number] 07/31/19 15:43 PMRU Outcome: Recreation Therapy Current Rec Ther Outcome/Goals Complete Rec Therapy Assessment Meet with Patient Regularly for Support Encourage Leisure Involvement Progression Toward Outcome/Goals Goal Initiation Safety- Improve/Maintain Start: 07/31/19 13:28 Freq: DAILY@0700,1900 Status: Active Target: 08/01/19 Protocol: Activity Type Activity Date Activity User E-Sign Co-Sign Detail Recorded Client Recorded Date Recorded By Document 08/01/19 07:00 [id number] [id number] 08/01/19 10:42 [id number] 08/01/19 07:00 PMRU Outcome: Safety Current Safety Outcome/Goals Remain Free of Injury or Harm Cooperates with Safety Measures for Least Restrictive Environment Prevent Falls/ Injury Progression Toward Outcome/Goals Progressing - Interdisciplinary Staff Present Laundry Aid/Social Work Staff Present: Becky Plummer Nursing Staff Present: Rohit Heath OT Staff Present: Joelle Avalos PT Staff Present: Monalisa Almazan Rec Therapy Staff Present: Sabiha Pagan HEARING AID ASSEMBLY SUPERVISOR Staff Present: Jamshid Bryant Medicine Note: Length of Stay: [3 weeks] Anticipated Discharge Destination: home with family Tentative Discharge Date: [08/22/19] Discharged to: [home]
[2019-08-01] MEDS: Enoxaparin(*) 30 MG/0.3 ML SYR SUBCUT SCH (14:17)
[2019-08-01] MEDS: Atorvastatin* 10 MG TAB PO SCH (17:21)
[2019-08-01 19:50] LABS: Urine Appearance Clear; Urine Bacteria Absent (Absent); Urine Bilirubin Negative (Negative); Urine Blood 1+ (Negative); Urine Color Yellow; Urine Glucose Negative (Negative); Urine Ketones Negative (Negative); Urine Nitrite Negative (Negative); Urine Protein Negative (Negative); Urine Red Blood Cell Trace(0-2/hpf) (Absent); Urine Specific Gravity 1.015 (1.010-1.030); Urine Urobilinogen Negative (Negative); Urine White Blood Cell Absent (Absent)
[2019-08-02] MEDS: Hydrochlorothiazide TAB* 25 MG PO SCH (08:11)
[2019-08-02] MEDS: Escitalopram * 10 MG TAB PO SCH (08:11)
[2019-08-02] MEDS: Aspirin EC TAB* 81 MG TAB.EC PO SCH (08:12)
[2019-08-02] MEDS: Clopidogrel TAB* 75 MG PO SCH (08:12)
[2019-08-02] MEDS: glipiZIDE TAB.XL* 5 MG PO SCH ×2 (08:12→16:49)
[2019-08-02] MEDS: Lisinopril TAB* 10 MG PO SCH (08:13)
[2019-08-02] MEDS: Carbidopa/Levodop 25/100 MG TAB(*) PO SCH ×3 (08:13→20:28)
[2019-08-02] MEDS: metFORMIN* 500 MG TAB PO SCH ×3 (08:14→16:49)
[2019-08-02] MEDS: Donepezil TAB* 5 MG PO SCH (08:14)
[2019-08-02] MEDS: amLODIPine TAB* 5 MG PO SCH (08:14)
--- NOTE | 2019-08-02 08:59 | PN ---
Progress Note Date of Service: 08/02/19 Note: DAYANNA YATES was visited. Nursing and therapy notes read and reviewed. Therapists noted some impulsivity. Speech eval ordered yesterday. He feels good. No chest pain, shortness of breath or abdominal pain. Current Medications: Active Medications Generic Name Dose Route Start Last Admin Trade Name Freq PRN Reason Stop Dose Admin Acetaminophen 650 mg 07/31/19 13:44 Tylenol Tab* PO Q6H PRN FEVER > 101 Al Hydrox/Mg Hydrox/Simethicone 30 ml 07/31/19 13:44 Maalox Plus* PO Q6H PRN INDIGESTION Amlodipine Besylate 5 mg 08/01/19 09:00 08/02/19 08:14 Norvasc Tab* PO 5 mg DAILY RAYMUNDO Administration Aspirin 81 mg 08/01/19 09:00 08/02/19 08:12 Aspirin Ec Tab* PO 81 mg DAILY RAYMUNDO Administration Atorvastatin Calcium 10 mg 07/31/19 17:00 08/01/19 17:21 Lipitor* PO 10 mg 1700 RAYMUNDO Administration Bisacodyl 10 mg 07/31/19 13:44 Dulcolax Supp* [place] DAILY PRN CONSTIPATION Carbidopa/Levodopa 1.5 tab 07/31/19 14:00 08/02/19 08:13 Sinemet 25/100 Tab(*) PO 1.5 tab TID RAYMUNDO Administration Clopidogrel Bisulfate 75 mg 08/01/19 09:00 08/02/19 08:12 Plavix Tab* PO 75 mg DAILY RAYMUNDO Administration Docusate Sodium 100 mg 07/31/19 13:44 Colace Cap* PO BID PRN CONSTIPATION Donepezil HCl 5 mg 08/01/19 09:00 08/02/19 08:14 Aricept Tab* PO 5 mg DAILY RAYMUNDO Administration Enoxaparin Sodium 30 mg 07/31/19 14:00 08/01/19 14:17 Lovenox(*) SUBCUT 30 mg Q24H RAYMUNDO Administration Escitalopram Oxalate 10 mg 08/01/19 09:00 08/02/19 08:11 Lexapro * PO 10 mg DAILY RAYMUNDO Administration Glipizide 5 mg 07/31/19 17:00 08/02/19 08:12 Glucotrol Xl* PO 5 mg 0800,1700 RAYMUNDO Administration Hydrochlorothiazide 25 mg 08/01/19 09:00 08/02/19 08:11 Hydrodiuril Tab* PO 25 mg DAILY RAYMUNDO Administration Lisinopril 40 mg 08/01/19 09:00 08/02/19 08:13 Prinivil Tab* PO 40 mg DAILY RAYMUNDO Administration Magnesium Hydroxide 30 ml 07/31/19 13:44 Milk Of Magnesia Liq* PO Q6H PRN CONSTIPATION Metformin HCl 500 mg 07/31/19 17:00 08/02/19 08:14 Glucophage* PO 500 mg 0800,1200,1700 RAYMUNDO Administration Senna 2 tab 07/31/19 13:44 Senokot 8.6 Mg Tab* PO BEDTIME PRN CONSTIPATION Vital Signs: Vital Signs Temp Pulse Resp BP Pulse Ox 97.7 F 65 16 120/60 95 08/02/19 06:20 08/02/19 06:20 08/02/19 06:20 08/02/19 06:20 08/02/19 06:20 Lab Results: Laboratory Results - last 24 hr 08/01/19 19:25 Urine Color Yellow Urine Appearance Clear Urine pH 6.0 Ur Specific [place] 1.015 Urine Protein Negative Urine Ketones Negative Urine Blood 1+ A Urine Nitrate Negative Urine Bilirubin Negative Urine Urobilinogen Negative Ur Leukocyte Esterase Negative Urine WBC (Auto) Absent Urine RBC (Auto) Trace(0-2/hpf) Urine Bacteria Absent Urine Glucose Negative Exam: GEN: no acute distress. alert and appropriate. LUNGS: clear to auscultation bilaterally CV: regular rate and rhythm ABD: + bowel sounds, soft, non-tender and non-distended EXT: no edema. Some cogwheeling in RUE. NEURO: CN II-XII intact except for some right hearing loss. Has chronic intermittent resting right facial droop that is not present when asked to smile. Motor 5/5 BUE and RLE. Motor LLE hip flexion 4+, knee ext 3, DF 4 (better ). Sensation intact x4. Assessment/Plan: 79-year-old man with Parkinson's disease and now left hemiplegia with primarily left leg weakness secondary to stroke. 1. Stroke with left leg weakness. Dual antiplatelet therapy with Plavix and aspirin until 08/26/19, then switch to baby aspirin daily alone. Follow up with Dr. Boland, who is his regular neurologist. Continue with statin therapy. He is currently on Lipitor substituted for his normal pravastatin. 2. DVT prophylaxis: Lovenox and VARGAS stockings. 3. Parkinson's disease. Continue with Sinemet 1-1/2 tablets t.i.d. Follow up with Dr. Boland as needed. 4. Hypertension. Continue with amlodipine, lisinopril and hydrochlorothiazide. 5. Diabetes mellitus. HgbA1c 6.6 at admit. Continue with his current metformin and glipizide. Fingersticks daily without coverage. Healthy heart diet. 6. Dementia. Continue with Aricept. Speech cognitive evaluation ordered. 7. Depression. Continue with escitalopram. 8. Impaired mobility. PT 9. Impaired self-care. OT 10. Urinary incontinence: s/p prostatectomy but denies use of a pad at home. Timed voids. UA negative 08/01/19. PVRs 130-177. 11. Advance directives: He is a full code. His is his healthcare proxy if he cannot make decisions for himself. 12. Estimated LOS: 08/22/19 08/02/19 08:58
[2019-08-02] MEDS: Enoxaparin(*) 30 MG/0.3 ML SYR SUBCUT SCH (13:45)
[2019-08-02] MEDS: Atorvastatin* 10 MG TAB PO SCH (16:49)
[2019-08-03] MEDS: amLODIPine TAB* 5 MG PO SCH (08:40)
[2019-08-03] MEDS: Hydrochlorothiazide TAB* 25 MG PO SCH (08:40)
[2019-08-03] MEDS: metFORMIN* 500 MG TAB PO SCH ×3 (08:40→17:14)
[2019-08-03] MEDS: Aspirin EC TAB* 81 MG TAB.EC PO SCH (08:40)
[2019-08-03] MEDS: Escitalopram * 10 MG TAB PO SCH (08:40)
[2019-08-03] MEDS: Clopidogrel TAB* 75 MG PO SCH (08:40)
[2019-08-03] MEDS: glipiZIDE TAB.XL* 5 MG PO SCH ×2 (08:41→17:14)
[2019-08-03] MEDS: Lisinopril TAB* 10 MG PO SCH (08:41)
[2019-08-03] MEDS: Carbidopa/Levodop 25/100 MG TAB(*) PO SCH ×3 (08:41→20:25)
[2019-08-03] MEDS: Donepezil TAB* 5 MG PO SCH (08:41)
--- NOTE | 2019-08-03 09:01 | PN ---
Progress Note Date of Service: 08/03/19 Note: DAYANNA Sah[place] TRUDY was visited. Nursing and therapy notes read and reviewed. No new issues overnight. No chest pain, shortness of breath or abdominal pain. Current Medications: Active Medications Generic Name Dose Route Start Last Admin Trade Name Freq PRN Reason Stop Dose Admin Acetaminophen 650 mg 07/31/19 13:44 Tylenol Tab* PO Q6H PRN FEVER > 101 Al Hydrox/Mg Hydrox/Simethicone 30 ml 07/31/19 13:44 Maalox Plus* PO Q6H PRN INDIGESTION Amlodipine Besylate 5 mg 08/01/19 09:00 08/03/19 08:40 Norvasc Tab* PO 5 mg DAILY RAYMUNDO Administration Aspirin 81 mg 08/01/19 09:00 08/03/19 08:40 Aspirin Ec Tab* PO 81 mg DAILY RAYMUNDO Administration Atorvastatin Calcium 10 mg 07/31/19 17:00 08/02/19 16:49 Lipitor* PO 10 mg 1700 RAYMUNDO Administration Bisacodyl 10 mg 07/31/19 13:44 Dulcolax Supp* [place] DAILY PRN CONSTIPATION Carbidopa/Levodopa 1.5 tab 07/31/19 14:00 08/03/19 08:41 Sinemet 25/100 Tab(*) PO 1.5 tab TID RAYMUNDO Administration Clopidogrel Bisulfate 75 mg 08/01/19 09:00 08/03/19 08:40 Plavix Tab* PO 75 mg DAILY RAYMUNDO Administration Docusate Sodium 100 mg 07/31/19 13:44 Colace Cap* PO BID PRN CONSTIPATION Donepezil HCl 5 mg 08/01/19 09:00 08/03/19 08:41 Aricept Tab* PO 5 mg DAILY RAYMUNDO Administration Enoxaparin Sodium 30 mg 07/31/19 14:00 08/02/19 13:45 Lovenox(*) SUBCUT 30 mg Q24H RAYMUNDO Administration Escitalopram Oxalate 10 mg 08/01/19 09:00 08/03/19 08:40 Lexapro * PO 10 mg DAILY RAYMUNDO Administration Glipizide 5 mg 07/31/19 17:00 08/03/19 08:41 Glucotrol Xl* PO 5 mg 0800,1700 RAYMUNDO Administration Hydrochlorothiazide 25 mg 08/01/19 09:00 08/03/19 08:40 Hydrodiuril Tab* PO 25 mg DAILY RAYMUNDO Administration Lisinopril 40 mg 08/01/19 09:00 08/03/19 08:41 Prinivil Tab* PO 40 mg DAILY RAYMUNDO Administration Magnesium Hydroxide 30 ml 07/31/19 13:44 Milk Of Magnzay Liq* PO Q6H PRN CONSTIPATION Metformin HCl 500 mg 07/31/19 17:00 08/03/19 08:40 Glucophage* PO 500 mg 0800,1200,1700 RAYMUNDO Administration Senna 2 tab 07/31/19 13:44 Senokot 8.6 Mg Tab* PO BEDTIME PRN CONSTIPATION Vital Signs: Vital Signs Temp Pulse Resp BP Pulse Ox 97.8 F 71 16 127/67 97 08/03/19 05:30 08/03/19 05:30 08/03/19 05:30 08/03/19 05:30 08/03/19 05:30 Lab Results: Laboratory Results - last 24 hr 08/02/19 07:14 POC Glucose (mg/dL) 124 H Exam: GEN: no acute distress. alert and appropriate. LUNGS: clear to auscultation bilaterally CV: regular rate and rhythm ABD: + bowel sounds, soft, non-tender and non-distended EXT: no edema. Some cogwheeling in RUE. NEURO: CN II-XII intact except for some right hearing loss. Has chronic intermittent resting right facial droop that is not present when asked to smile. Motor 5/5 BUE and RLE. Motor LLE hip flexion 4+, knee ext 3, DF 4 (better ), EHL 5. Sensation intact x4. Assessment/Plan: 79-year-old man with Parkinson's disease and now left hemiplegia with primarily left leg weakness secondary to stroke. 1. Stroke with left leg weakness. Dual antiplatelet therapy with Plavix and aspirin until 08/26/19, then switch to baby aspirin daily alone. Follow up with Dr. Boland, who is his regular neurologist. Continue with statin therapy. He is currently on Lipitor substituted for his normal pravastatin. 2. DVT prophylaxis: Lovenox and VARGAS stockings. 3. Parkinson's disease. Continue with Sinemet 1-1/2 tablets t.i.d. Follow up with Dr. Boland as needed. 4. Hypertension. Continue with amlodipine, lisinopril and hydrochlorothiazide. 5. Diabetes mellitus. HgbA1c 6.6 at admit. Continue with his current metformin and glipizide. Fingersticks daily without coverage. Healthy heart diet. 6. Dementia. Continue with Aricept. Speech cognitive evaluation ordered. 7. Depression. Continue with escitalopram. 8. Impaired mobility. PT 9. Impaired self-care. OT 10. Urinary incontinence: s/p prostatectomy but denies use of a pad at home. Timed voids. UA negative 08/01/19. PVRs 130-177. 11. Advance directives: He is a full code. His is his healthcare proxy if he cannot make decisions for himself. 12. Estimated LOS: 08/22/19 08/03/19 09:09
[2019-08-03] MEDS: Enoxaparin(*) 30 MG/0.3 ML SYR SUBCUT SCH (14:17)
[2019-08-03] MEDS: Atorvastatin* 10 MG TAB PO SCH (17:14)
[2019-08-04] MEDS: metFORMIN* 500 MG TAB PO SCH ×3 (08:15→16:43)
[2019-08-04] MEDS: amLODIPine TAB* 5 MG PO SCH (08:15)
[2019-08-04] MEDS: Aspirin EC TAB* 81 MG TAB.EC PO SCH (08:17)
[2019-08-04] MEDS: glipiZIDE TAB.XL* 5 MG PO SCH ×2 (08:19→16:43)
[2019-08-04] MEDS: Escitalopram * 10 MG TAB PO SCH (08:19)
[2019-08-04] MEDS: Clopidogrel TAB* 75 MG PO SCH (08:19)
[2019-08-04] MEDS: Lisinopril TAB* 10 MG PO SCH (08:19)
[2019-08-04] MEDS: Hydrochlorothiazide TAB* 25 MG PO SCH (08:20)
[2019-08-04] MEDS: Carbidopa/Levodop 25/100 MG TAB(*) PO SCH ×3 (08:20→20:24)
[2019-08-04] MEDS: Donepezil TAB* 5 MG PO SCH (08:20)
--- NOTE | 2019-08-04 10:40 | PN ---
Progress Note Date of Service: 08/04/19 Note: DAYANNA YATES was visited. Nursing and therapy notes read and reviewed. Nurse and therapist note in shower he needed 2 assist to get out since he was leaning more to the right during transfer. No chest pain, shortness of breath or abdominal pain. He feels the same and without any new numbness or weakness. Urine incontinence seems to be lessening. Current Medications: Active Medications Generic Name Dose Route Start Last Admin Trade Name Freq PRN Reason Stop Dose Admin Acetaminophen 650 mg 07/31/19 13:44 Tylenol Tab* PO Q6H PRN FEVER > 101 Al Hydrox/Mg Hydrox/Simethicone 30 ml 07/31/19 13:44 Maalox Plus* PO Q6H PRN INDIGESTION Amlodipine Besylate 5 mg 08/01/19 09:00 08/04/19 08:15 Norvasc Tab* PO 5 mg DAILY RAYMUNDO Administration Aspirin 81 mg 08/01/19 09:00 08/04/19 08:17 Aspirin Ec Tab* PO 81 mg DAILY RAYMUNDO Administration Atorvastatin Calcium 10 mg 07/31/19 17:00 08/03/19 17:14 Lipitor* PO 10 mg 1700 RAYMUNDO Administration Bisacodyl 10 mg 07/31/19 13:44 Dulcolax Supp* [place] DAILY PRN CONSTIPATION Carbidopa/Levodopa 1.5 tab 07/31/19 14:00 08/04/19 08:20 Sinemet 25/100 Tab(*) PO 1.5 tab TID RAYMUNDO Administration Clopidogrel Bisulfate 75 mg 08/01/19 09:00 08/04/19 08:19 Plavix Tab* PO 75 mg DAILY RAYMUNDO Administration Docusate Sodium 100 mg 07/31/19 13:44 Colace Cap* PO BID PRN CONSTIPATION Donepezil HCl 5 mg 08/01/19 09:00 08/04/19 08:20 Aricept Tab* PO 5 mg DAILY RAYMUNDO Administration Enoxaparin Sodium 30 mg 07/31/19 14:00 08/03/19 14:17 Lovenox(*) SUBCUT 30 mg Q24H RAYMUNDO Administration Escitalopram Oxalate 10 mg 08/01/19 09:00 08/04/19 08:19 Lexapro * PO 10 mg DAILY RAYMUNDO Administration Glipizide 5 mg 07/31/19 17:00 08/04/19 08:19 Glucotrol Xl* PO 5 mg 0800,1700 RAYMUNDO Administration Hydrochlorothiazide 25 mg 08/01/19 09:00 08/04/19 08:20 Hydrodiuril Tab* PO 25 mg DAILY RAYMUNDO Administration Lisinopril 40 mg 08/01/19 09:00 08/04/19 08:19 Prinivil Tab* PO 40 mg DAILY RAYMUNDO Administration Magnesium Hydroxide 30 ml 07/31/19 13:44 Milk Of Magnesia Liq* PO Q6H PRN CONSTIPATION Metformin HCl 500 mg 07/31/19 17:00 08/04/19 08:15 Glucophage* PO 500 mg 0800,1200,1700 RAYMUNDO Administration Senna 2 tab 07/31/19 13:44 Senokot 8.6 Mg Tab* PO BEDTIME PRN CONSTIPATION Vital Signs: Vital Signs Temp Pulse Resp BP Pulse Ox 97.7 F 65 16 129/67 97 08/04/19 05:20 08/04/19 05:20 08/04/19 07:40 08/04/19 05:20 08/04/19 07:40 Lab Results: Laboratory Results - last 24 hr 08/03/19 07:13 POC Glucose (mg/dL) 123 H Exam: GEN: no acute distress. alert and appropriate. LUNGS: clear to auscultation bilaterally CV: regular rate and rhythm ABD: + bowel sounds, soft, non-tender and non-distended EXT: no edema. Some cogwheeling in RUE. NEURO: CN II-XII intact except for some right hearing loss. Has chronic intermittent resting right facial droop that is not present when asked to smile. Motor 5/5 BUE and RLE. Motor LLE hip flexion 4+, knee ext 3, DF 4 (better ), EHL 5. Sensation intact x4. Normal finger to nose. Assessment/Plan: 79-year-old man with Parkinson's disease and now left hemiplegia with primarily left leg weakness secondary to stroke. 1. Stroke with left leg weakness. Dual antiplatelet therapy with Plavix and aspirin until 08/26/19, then switch to baby aspirin daily alone. Follow up with Dr. Boland, who is his regular neurologist. Continue with statin therapy. He is currently on Lipitor substituted for his normal pravastatin. 2. DVT prophylaxis: Lovenox and VARGAS stockings. 3. Parkinson's disease. Continue with Sinemet 1-1/2 tablets t.i.d. Follow up with Dr. Boland as needed. Had hydrocephalus on acute hospital imaging. 4. Hypertension. Continue with amlodipine, lisinopril and hydrochlorothiazide. 5. Diabetes mellitus. HgbA1c 6.6 at admit. Continue with his current metformin and glipizide. Fingersticks daily without coverage. Healthy heart diet. 6. Dementia. Continue with Aricept. Speech cognitive evaluation ordered. 7. Depression. Continue with escitalopram. 8. Impaired mobility. PT 9. Impaired self-care. OT 10. Urinary incontinence: s/p prostatectomy but denies use of a pad at home. Timed voids. UA negative 08/01/19. PVRs 130-177. 11. Advance directives: He is a full code. His is his healthcare proxy if he cannot make decisions for himself. 12. Estimated LOS: 08/22/19 08/04/19 10:41
[2019-08-04] MEDS: Enoxaparin(*) 30 MG/0.3 ML SYR SUBCUT SCH (13:58)
[2019-08-04] MEDS: Atorvastatin* 10 MG TAB PO SCH (16:43)
[2019-08-05] MEDS: metFORMIN* 500 MG TAB PO SCH ×3 (08:18→16:46)
[2019-08-05] MEDS: glipiZIDE TAB.XL* 5 MG PO SCH ×2 (08:19→16:48)
--- NOTE | 2019-08-05 08:44 | PN ---
Progress Note Date of Service: 08/05/19 Note: DAYANNA Sahara TRUDY was visited. Nursing and therapy notes read and reviewed. No chest pain, shortness of breath or abdominal pain. Current Medications: Active Medications Generic Name Dose Route Start Last Admin Trade Name Freq PRN Reason Stop Dose Admin Acetaminophen 650 mg 07/31/19 13:44 Tylenol Tab* PO Q6H PRN FEVER > 101 Al Hydrox/Mg Hydrox/Simethicone 30 ml 07/31/19 13:44 Maalox Plus* PO Q6H PRN INDIGESTION Amlodipine Besylate 5 mg 08/01/19 09:00 08/04/19 08:15 Norvasc Tab* PO 5 mg DAILY RAYMUNDO Administration Aspirin 81 mg 08/01/19 09:00 08/04/19 08:17 Aspirin Ec Tab* PO 81 mg DAILY RAYMUNDO Administration Atorvastatin Calcium 10 mg 07/31/19 17:00 08/04/19 16:43 Lipitor* PO 10 mg 1700 RAYMUNDO Administration Bisacodyl 10 mg 07/31/19 13:44 Dulcolax Supp* [place] DAILY PRN CONSTIPATION Carbidopa/Levodopa 1.5 tab 07/31/19 14:00 08/04/19 20:24 Sinemet 25/100 Tab(*) PO 1.5 tab TID RAYMUNDO Administration Clopidogrel Bisulfate 75 mg 08/01/19 09:00 08/04/19 08:19 Plavix Tab* PO 75 mg DAILY RAYMUNDO Administration Docusate Sodium 100 mg 07/31/19 13:44 Colace Cap* PO BID PRN CONSTIPATION Donepezil HCl 5 mg 08/01/19 09:00 08/04/19 08:20 Aricept Tab* PO 5 mg DAILY RAYMUNDO Administration Enoxaparin Sodium 30 mg 07/31/19 14:00 08/04/19 13:58 Lovenox(*) SUBCUT 30 mg Q24H RAYMUNDO Administration Escitalopram Oxalate 10 mg 08/01/19 09:00 08/04/19 08:19 Lexapro * PO 10 mg DAILY RAYMUNDO Administration Glipizide 5 mg 07/31/19 17:00 08/05/19 08:19 Glucotrol Xl* PO 5 mg 0800,1700 RAYMUNDO Administration Hydrochlorothiazide 25 mg 08/01/19 09:00 08/04/19 08:20 Hydrodiuril Tab* PO 25 mg DAILY RAYMUNDO Administration Lisinopril 40 mg 08/01/19 09:00 08/04/19 08:19 Prinivil Tab* PO 40 mg DAILY RAYMUNDO Administration Magnesium Hydroxide 30 ml 07/31/19 13:44 Milk Of Magnzay Liq* PO Q6H PRN CONSTIPATION Metformin HCl 500 mg 07/31/19 17:00 08/05/19 08:18 Glucophage* PO 500 mg 0800,1200,1700 RAYMUNDO Administration Senna 2 tab 07/31/19 13:44 Senokot 8.6 Mg Tab* PO BEDTIME PRN CONSTIPATION Vital Signs: Vital Signs Temp Pulse Resp BP Pulse Ox 97.6 F 69 16 132/65 97 08/05/19 06:07 08/05/19 06:07 08/05/19 06:07 08/05/19 06:07 08/05/19 06:07 Lab Results: Laboratory Results - last 24 hr 08/04/19 07:38 POC Glucose (mg/dL) 115 H Exam: GEN: no acute distress. alert and appropriate. LUNGS: clear to auscultation bilaterally CV: regular rate and rhythm ABD: + bowel sounds, soft, non-tender and non-distended EXT: no edema. Some cogwheeling in RUE. NEURO: CN II-XII intact except for some right hearing loss. Has chronic intermittent resting right facial droop that is not present when asked to smile. Motor 5/5 BUE and RLE. Motor LLE hip flexion 4+, knee ext 3, DF 4, EHL 5. Sensation intact x4. Assessment/Plan: 79-year-old man with Parkinson's disease and now left hemiplegia with primarily left leg weakness secondary to stroke. 1. Stroke with left leg weakness. Dual antiplatelet therapy with Plavix and aspirin until 08/26/19, then switch to baby aspirin daily alone. Follow up with Dr. Boland, who is his regular neurologist. Continue with statin therapy. He is currently on Lipitor substituted for his normal pravastatin. 2. DVT prophylaxis: Lovenox and VARGAS stockings. 3. Parkinson's disease. Continue with Sinemet 1-1/2 tablets t.i.d. Follow up with Dr. Boland as needed. Had hydrocephalus on acute hospital imaging. 4. Hypertension. Continue with amlodipine, lisinopril and hydrochlorothiazide. 5. Diabetes mellitus. HgbA1c 6.6 at admit. Continue with his current metformin and glipizide. Fingersticks daily without coverage. Healthy heart diet. 6. Dementia/Impaired cognition. Continue with Aricept. Speech therapy. 7. Depression. Continue with escitalopram. 8. Impaired mobility. PT 9. Impaired self-care. OT 10. Urinary incontinence: s/p prostatectomy but denies use of a pad at home. Timed voids. UA negative 08/01/19. PVRs 130-177. Improving 11. Advance directives: He is a full code. His is his healthcare proxy if he cannot make decisions for himself. 12. Estimated LOS: 08/22/19 08/05/19 08:43
[2019-08-05] MEDS: Aspirin EC TAB* 81 MG TAB.EC PO SCH (09:37)
[2019-08-05] MEDS: amLODIPine TAB* 5 MG PO SCH (09:37)
[2019-08-05] MEDS: Carbidopa/Levodop 25/100 MG TAB(*) PO SCH ×3 (09:37→20:49)
[2019-08-05] MEDS: Clopidogrel TAB* 75 MG PO SCH (09:38)
[2019-08-05] MEDS: Escitalopram * 10 MG TAB PO SCH (09:38)
[2019-08-05] MEDS: Lisinopril TAB* 10 MG PO SCH (09:38)
[2019-08-05] MEDS: Hydrochlorothiazide TAB* 25 MG PO SCH (09:38)
[2019-08-05] MEDS: Donepezil TAB* 5 MG PO SCH (09:38)
[2019-08-05] MEDS: Docusate CAP* 100 MG PO PRN (12:14)
[2019-08-05] MEDS: Enoxaparin(*) 30 MG/0.3 ML SYR SUBCUT SCH (13:51)
[2019-08-05] MEDS: Atorvastatin* 10 MG TAB PO SCH (16:47)
[2019-08-06] MEDS: glipiZIDE TAB.XL* 5 MG PO SCH ×2 (07:56→16:32)
[2019-08-06] MEDS: metFORMIN* 500 MG TAB PO SCH ×3 (07:56→16:32)
[2019-08-06] MEDS: amLODIPine TAB* 5 MG PO SCH (09:06)
[2019-08-06] MEDS: Lisinopril TAB* 10 MG PO SCH (09:06)
[2019-08-06] MEDS: Aspirin EC TAB* 81 MG TAB.EC PO SCH (09:06)
[2019-08-06] MEDS: Clopidogrel TAB* 75 MG PO SCH (09:06)
[2019-08-06] MEDS: Hydrochlorothiazide TAB* 25 MG PO SCH (09:06)
[2019-08-06] MEDS: Carbidopa/Levodop 25/100 MG TAB(*) PO SCH ×3 (09:06→21:15)
[2019-08-06] MEDS: Escitalopram * 10 MG TAB PO SCH (09:06)
[2019-08-06] MEDS: Donepezil TAB* 5 MG PO SCH (09:07)
--- NOTE | 2019-08-06 09:24 | PN ---
Progress Note Date of Service: 08/06/19 Note: DAYANNA Shoemaker ABELINOSaharaMIKHAIL was visited. Nursing and therapy notes read and reviewed. No chest pain, shortness of breath or abdominal pain. Intermittently incontinent. Current Medications: Active Medications Generic Name Dose Route Start Last Admin Trade Name Freq PRN Reason Stop Dose Admin Acetaminophen 650 mg 07/31/19 13:44 Tylenol Tab* PO Q6H PRN FEVER > 101 Al Hydrox/Mg Hydrox/Simethicone 30 ml 07/31/19 13:44 Maalox Plus* PO Q6H PRN INDIGESTION Amlodipine Besylate 5 mg 08/01/19 09:00 08/06/19 09:06 Norvasc Tab* PO 5 mg DAILY RAYMUNDO Administration Aspirin 81 mg 08/01/19 09:00 08/06/19 09:06 Aspirin Ec Tab* PO 81 mg DAILY RAYMUNDO Administration Atorvastatin Calcium 10 mg 07/31/19 17:00 08/05/19 16:47 Lipitor* PO 10 mg 1700 RAYMUNDO Administration Bisacodyl 10 mg 07/31/19 13:44 Dulcolax Supp* [place] DAILY PRN CONSTIPATION Carbidopa/Levodopa 1.5 tab 07/31/19 14:00 08/06/19 09:06 Sinemet 25/100 Tab(*) PO 1.5 tab TID RAYMUNDO Administration Clopidogrel Bisulfate 75 mg 08/01/19 09:00 08/06/19 09:06 Plavix Tab* PO 75 mg DAILY RAYMUNDO Administration Docusate Sodium 100 mg 07/31/19 13:44 08/05/19 12:14 Colace Cap* PO 100 mg BID PRN Administration CONSTIPATION Donepezil HCl 5 mg 08/01/19 09:00 08/06/19 09:07 Aricept Tab* PO 5 mg DAILY RAYMUNDO Administration Enoxaparin Sodium 30 mg 07/31/19 14:00 08/05/19 13:51 Lovenox(*) SUBCUT 30 mg Q24H RAYMUNDO Administration Escitalopram Oxalate 10 mg 08/01/19 09:00 08/06/19 09:06 Lexapro * PO 10 mg DAILY RAYMUNDO Administration Glipizide 5 mg 07/31/19 17:00 08/06/19 07:56 Glucotrol Xl* PO 5 mg 0800,1700 RAYMUNDO Administration Hydrochlorothiazide 25 mg 08/01/19 09:00 08/06/19 09:06 Hydrodiuril Tab* PO 25 mg DAILY RAYMUNDO Administration Lisinopril 40 mg 08/01/19 09:00 08/06/19 09:06 Prinivil Tab* PO 40 mg DAILY RAYMUNDO Administration Magnesium Hydroxide 30 ml 07/31/19 13:44 Milk Of Magnesia Liq* PO Q6H PRN CONSTIPATION Metformin HCl 500 mg 07/31/19 17:00 08/06/19 07:56 Glucophage* PO 500 mg 0800,1200,1700 RAYMUNDO Administration Senna 2 tab 07/31/19 13:44 Senokot 8.6 Mg Tab* PO BEDTIME PRN CONSTIPATION Vital Signs: Vital Signs Temp Pulse Resp BP Pulse Ox 97.7 F 62 14 130/69 97 08/06/19 06:04 08/06/19 06:04 08/06/19 07:40 08/06/19 06:04 08/06/19 07:40 Lab Results: Laboratory Results - last 24 hr 08/05/19 07:38 POC Glucose (mg/dL) 111 H Exam: GEN: no acute distress. alert and appropriate. LUNGS: clear to auscultation bilaterally CV: regular rate and rhythm ABD: + bowel sounds, soft, non-tender and non-distended EXT: no edema. Some cogwheeling in RUE. NEURO: CN II-XII intact except for some right hearing loss. Has chronic intermittent resting right facial droop that is not present when asked to smile. Motor 5/5 BUE and RLE. Motor LLE hip flexion 4+, knee ext 3, DF 4, EHL 5. Sensation intact x4. Assessment/Plan: 79-year-old man with Parkinson's disease and now left hemiplegia with primarily left leg weakness secondary to stroke. 1. Stroke with left leg weakness. Dual antiplatelet therapy with Plavix and aspirin until 08/26/19, then switch to baby aspirin daily alone. Follow up with Dr. Boland, who is his regular neurologist. Continue with statin therapy. He is currently on Lipitor substituted for his normal pravastatin. 2. DVT prophylaxis: Lovenox and VARGAS stockings. 3. Parkinson's disease. Continue with Sinemet 1-1/2 tablets t.i.d. Follow up with Dr. Boland as needed. Had hydrocephalus on acute hospital imaging. Questionable how much this is impacting his current status as he has some incontinence, cognitive impairment and balance issues. He is on DAPT for CVA, so not a good time for considering a spinal tap. 4. Hypertension. Continue with amlodipine, lisinopril and hydrochlorothiazide. 5. Diabetes mellitus. HgbA1c 6.6 at admit. Continue with his current metformin and glipizide. Fingersticks daily without coverage. Healthy heart diet. 6. Dementia/Impaired cognition. Continue with Aricept. Speech therapy. 7. Depression. Continue with escitalopram. 8. Impaired mobility. PT 9. Impaired self-care. OT 10. Urinary incontinence: s/p prostatectomy but denies use of a pad at home. Timed voids. UA negative 08/01/19. PVRs 130-177. Improving 11. Advance directives: He is a full code. His is his healthcare proxy if he cannot make decisions for himself. 12. Estimated LOS: 08/22/19 08/06/19 09:22
[2019-08-06] MEDS: Enoxaparin(*) 30 MG/0.3 ML SYR SUBCUT SCH (13:49)
[2019-08-06] MEDS: Atorvastatin* 10 MG TAB PO SCH (16:32)
[2019-08-07 05:48] LABS: ABS Eosinophils 0.2 10^3/ul (0-0.6); ABS Lymphocytes 2.8 10^3/ul (1.0-4.8); ABS Monocytes 0.7 10^3/ul (0-0.8); ABS Neutrophils 4.1 10^3/ul (1.5-7.7); Hematocrit 43 % (42-52); Hemoglobin 14.5 g/dL (14.0-18.0); Lymphocyte % 35.9 %; Mean Corpuscular HGB Conc 33 g/dL (31-36); Mean Corpuscular Hemoglobin 30 pg (27-31); Mean Corpuscular Volume 90 fL (80-94); Mean Platelet Volume 7.8 fL (7.4-10.4); Nucleated Red Blood Cells % 0.5; Platelet Count 193 10^3/uL (150-450); Red Blood Count 4.79 10^6 /uL (4.18-5.48); Red Cell Distribution Width 15 % (10-15); White Blood Count 7.9 10^3/uL (3.5-10.8)
[2019-08-07 06:06] LABS: Albumin 4.1 g/dL (3.2-5.2); Albumin/Globulin Ratio 1.3 (1-3); BUN/Creatinine Ratio 19.8 (8-20); Calcium 9.2 mg/dL (8.6-10.3); EGFR African American 86.7 (>60); EGFR Non-African American 71.6 (>60); Globulin 3.2 g/dL (2-4); Total Bilirubin 0.9 mg/dL (0.2-1.0); Total Protein 7.3 g/dL (6.4-8.9)
[2019-08-07 06:46] LABS: Potassium 3.6 mmol/L (3.5-5.0)
[2019-08-07] MEDS: glipiZIDE TAB.XL* 5 MG PO SCH ×2 (10:07→16:53)
[2019-08-07] MEDS: amLODIPine TAB* 5 MG PO SCH (10:07)
[2019-08-07] MEDS: metFORMIN* 500 MG TAB PO SCH ×3 (10:07→16:53)
[2019-08-07] MEDS: Donepezil TAB* 5 MG PO SCH (10:08)
[2019-08-07] MEDS: Escitalopram * 10 MG TAB PO SCH (10:08)
[2019-08-07] MEDS: Hydrochlorothiazide TAB* 25 MG PO SCH (10:08)
[2019-08-07] MEDS: Lisinopril TAB* 10 MG PO SCH (10:08)
[2019-08-07] MEDS: Clopidogrel TAB* 75 MG PO SCH (10:08)
[2019-08-07] MEDS: Aspirin EC TAB* 81 MG TAB.EC PO SCH (10:08)
[2019-08-07] MEDS: Carbidopa/Levodop 25/100 MG TAB(*) PO SCH ×3 (10:08→20:42)
[2019-08-07] MEDS: Enoxaparin(*) 30 MG/0.3 ML SYR SUBCUT SCH (14:44)
[2019-08-07] MEDS: Atorvastatin* 10 MG TAB PO SCH (16:53)
--- NOTE | 2019-08-07 20:33 | PN ---
Progress Note Date of Service: 08/07/19 Note: DAYANNA YATES was visited. Therapy notes read and reviewed. His gait was observed. He did tend to freeze and walked with a slight crouch. Current Medications: Active Medications Generic Name Dose Route Start Last Admin Trade Name Freq PRN Reason Stop Dose Admin Acetaminophen 650 mg 07/31/19 13:44 Tylenol Tab* PO Q6H PRN FEVER > 101 Al Hydrox/Mg Hydrox/Simethicone 30 ml 07/31/19 13:44 Maalox Plus* PO Q6H PRN INDIGESTION Amlodipine Besylate 5 mg 08/01/19 09:00 08/07/19 10:07 Norvasc Tab* PO 5 mg DAILY RAYMUNDO Administration Aspirin 81 mg 08/01/19 09:00 08/07/19 10:08 Aspirin Ec Tab* PO 81 mg DAILY RAYMUNDO Administration Atorvastatin Calcium 10 mg 07/31/19 17:00 08/07/19 16:53 Lipitor* PO 10 mg 1700 RAYMUNDO Administration Bisacodyl 10 mg 07/31/19 13:44 Dulcolax Supp* [place] DAILY PRN CONSTIPATION Carbidopa/Levodopa 1.5 tab 07/31/19 14:00 08/07/19 14:45 Sinemet 25/100 Tab(*) PO 1.5 tab TID RAYMUNDO Administration Clopidogrel Bisulfate 75 mg 08/01/19 09:00 08/07/19 10:08 Plavix Tab* PO 75 mg DAILY RAYMUNDO Administration Docusate Sodium 100 mg 07/31/19 13:44 08/05/19 12:14 Colace Cap* PO 100 mg BID PRN Administration CONSTIPATION Donepezil HCl 5 mg 08/01/19 09:00 08/07/19 10:08 Aricept Tab* PO 5 mg DAILY RAYMUNDO Administration Enoxaparin Sodium 30 mg 07/31/19 14:00 08/07/19 14:44 Lovenox(*) SUBCUT 30 mg Q24H RAYMUNDO Administration Escitalopram Oxalate 10 mg 08/01/19 09:00 08/07/19 10:08 Lexapro * PO 10 mg DAILY RAYMUNDO Administration Glipizide 5 mg 07/31/19 17:00 08/07/19 16:53 Glucotrol Xl* PO 5 mg 0800,1700 RAYMUNDO Administration Hydrochlorothiazide 25 mg 08/01/19 09:00 08/07/19 10:08 Hydrodiuril Tab* PO 25 mg DAILY RAYMUNDO Administration Lisinopril 40 mg 08/01/19 09:00 08/07/19 10:08 Prinivil Tab* PO 40 mg DAILY RAYMUNDO Administration Magnesium Hydroxide 30 ml 07/31/19 13:44 Milk Of Magnzay Liq* PO Q6H PRN CONSTIPATION Metformin HCl 500 mg 07/31/19 17:00 08/07/19 16:53 Glucophage* PO 500 mg 0800,1200,1700 RAYMUNDO Administration Senna 2 tab 07/31/19 13:44 Senokot 8.6 Mg Tab* PO BEDTIME PRN CONSTIPATION Vital Signs: Vital Signs Temp Pulse Resp BP Pulse Ox 97.3 F 59 18 124/59 97 08/07/19 16:50 08/07/19 16:50 08/07/19 16:50 08/07/19 16:50 08/07/19 17:20 Lab Results: Laboratory Results - last 24 hr 08/07/19 08/07/19 08/07/19 05:29 05:29 07:49 WBC 7.9 RBC 4.79 Hgb 14.5 Hct 43 MCV 90 MCH 30 MCHC 33 RDW 15 Plt Count 193 MPV 7.8 Neut % (Auto) 51.8 Lymph % (Auto) 35.9 [place] % (Auto) 8.8 Eos % (Auto) 3.0 Baso % (Auto) 0.5 Absolute Neuts (auto) 4.1 Absolute Lymphs (auto) 2.8 Absolute Monos (auto) 0.7 Absolute Eos (auto) 0.2 Absolute Basos (auto) 0.0 Absolute Nucleated RBC 0.0 Nucleated RBC % 0.5 Sodium 139 Potassium 3.6 Chloride 105 Carbon Dioxide 27 Anion Gap 7 BUN 20 Creatinine 1.01 Est GFR ( Amer) 86.7 Est GFR (Non-Af Amer) 71.6 BUN/Creatinine Ratio 19.8 Glucose 112 H POC Glucose (mg/dL) 107 H Calcium 9.2 Total Bilirubin 0.90 AST 22 ALT 22 Alkaline Phosphatase 42 Total Protein 7.3 Albumin 4.1 Globulin 3.2 Albumin/Globulin Ratio 1.3 Exam: GENERAL: no acute distress. alert and appropriate. LUNGS: clear to auscultation bilaterally HEART: regular rate and rhythm ABDOMEN: + bowel sounds, soft, non-tender and non-distended EXTREMITIES: no edema. Some cogwheeling in RUE. NEUROLOGIC: CN II-XII intact except for some right hearing loss. Has chronic intermittent resting right facial droop that is not present when asked to smile. Motor 5/5 BUE and RLE. Motor LLE hip flexion 4+, knee ext 3, DF 4, EHL 5. Sensation intact x4. Assessment/Plan: 79-year-old man with Parkinson's disease and now left hemiplegia with primarily left leg weakness secondary to stroke. 1. Stroke with left leg weakness. Dual antiplatelet therapy with Plavix and aspirin until 08/26/19, then switch to baby aspirin daily alone. Follow up with Dr. Boland. Continue with statin therapy. He is currently on Lipitor substituted for his normal pravastatin. 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 DVT prophylaxis: Lovenox and VARGAS stockings. 3. Parkinson's disease. Continue with Sinemet 1-1/2 tablets t.i.d. Follow up with Dr. Boland as needed. Had hydrocephalus on acute hospital imaging. Questionable how much this is impacting his current status as he has some incontinence, cognitive impairment and balance issues. He is on DAPT for CVA, so not a good time for considering a spinal tap. 4. Hypertension. Continue with amlodipine, lisinopril and hydrochlorothiazide. 5. Diabetes mellitus. HgbA1c 6.6 at admit. Continue with his current metformin and glipizide. Fingersticks daily without coverage. Healthy heart diet. 6. Dementia/Impaired cognition. Continue with Aricept. Speech therapy. 7. Depression. Continue with escitalopram. 8. Urinary incontinence: s/p prostatectomy but denies use of a pad at home. Timed voids. UA negative 08/01/19. PVRs 130-177. Improving 9. Advance directives: He is a full code. His is his healthcare proxy if he cannot make decisions for himself. 10. Estimated LOS: 08/22/19 08/07/19 20:34
[2019-08-08] MEDS: Aspirin EC TAB* 81 MG TAB.EC PO SCH (09:37)
[2019-08-08] MEDS: metFORMIN* 500 MG TAB PO SCH ×3 (09:37→16:56)
[2019-08-08] MEDS: amLODIPine TAB* 5 MG PO SCH (09:37)
[2019-08-08] MEDS: glipiZIDE TAB.XL* 5 MG PO SCH ×2 (09:37→16:56)
[2019-08-08] MEDS: Clopidogrel TAB* 75 MG PO SCH (09:38)
[2019-08-08] MEDS: Hydrochlorothiazide TAB* 25 MG PO SCH (09:38)
[2019-08-08] MEDS: Escitalopram * 10 MG TAB PO SCH (09:38)
[2019-08-08] MEDS: Lisinopril TAB* 10 MG PO SCH (09:38)
[2019-08-08] MEDS: Carbidopa/Levodop 25/100 MG TAB(*) PO SCH ×3 (09:38→20:56)
[2019-08-08] MEDS: Donepezil TAB* 5 MG PO SCH (09:38)
--- NOTE | 2019-08-08 12:44 | PMRUTEAM ---
PMRU: Team Meeting Current Status: Physical Therapy: Current Status Current Rolling Status Supervision/Touching Current Supine <-> Sit Status Partial/Moderate Current Sit <-> Stand Status Supervision/Touching Current Bed <-> Chair Status Partial/Moderate Transfer/Bed Mobility Rolling Walker Recommended Devices Transfer Mobility Comment CGA-min Ax1 for sit<>Stand, min Ax1 for stand step transfers with RW/GB Current Picking Up Object Partial/Moderate Status Current Car Transfer Status Partial/Moderate Current Ambulation Assistance Partial/Moderate Status Ambulation Assistive Device Rolling Walker Ambulation Conditions Two or More Turns Current Ambulation Distance 4x25, 1x60' Manual Wheelchair Control/ Bilateral UE's Technique Current Wheelchair Propulsion Partial/Moderate Ability Status Wheelchair Distance (ft) 150' Current Stair Climbing Status Partial/Moderate Stair Climbing Assistive Left Railing,Right Railing Devices Number of Stairs Climbed 3 Current Curb Assistance Status Not attempted Objective Comments Pt requires increased cues throughout session for LLE placement, sequencing and postural correction. Pt demonstrates difficulty with LLE negotiation and safety awareness with all functional tasks requiring frequent VCs for all activities. Occupational Therapy: Current Status Current Upper Body Dressing Setup or Clean-up Assist Status Current Lower Body Dressing Substantial/Maximal Status Current Footwear Status Dependent Current Bathing Status Partial/Moderate Current Grooming Status Setup or Clean-up Assist Current Toileting Status Partial/Moderate Current Toilet Transfer Status Substantial/Maximal Current Eating Status Independent Nursing: Current Status Skin Deviations [left hand] Bruise Skin Deviations [Generalized] Other Skin Deviation Description [ bandaide in place left hand] Skin Deviation Description [ none none] Skin Deviation Description [ dry skin Generalized] Bladder Current Status pt incontinent of urine - needs encouragement to change briefs Bowel Current Status Last bowel mvmt 08/07 - continent at all times Nutrition Current Status heart healthy diet - eats 100% of most meals Medication Current Status Pt needs reinforcement with medications Rec Therapy: Current Status Summary of Assessment and Recreation Therapy assessment complete and pt. is Clinical Impression aware of services. Pt. is open to leisure visits and pet therapy while on the unit. Treatment Goals Pt. will engage in leisure activities while on the unit. Treatment Plan Provide recreation therapy services and encourage involvement. Nutrition: Current Status Monitoring Pt eating well: typically 100% of meals on heart healthy diet. FSBG adequately controlled: 107-123. Electrolytes WNL. Last BM 08/07. No change to current diet intervention (heart healthy) to recommend at this time; will continue to follow. Speech: Current Status Assessment Patient is progressing as expected. Goals: Physical Therapy: Goals Goals to Be Accomplished in ( 18-21 Days) Goal: Rolling Assistance Independent Goal Supine <-> Sit Status Independent Goal Sit <-> Stand Status Supervision/Touching Goal Bed <-> Chair Status Supervision/Touching Transfer/Bed Mobility Rolling Walker Recommended Devices Goal: Picking Up Object Supervision/Touching Goal: Car Transfer Status Supervision/Touching Goal: Ambulation Assistance Supervision/Touching Ambulation Assistive Devices Rolling Walker Ambulation Distance (ft) 150 Goal: Wheelchair Propulsion Not Applicable Ability Wheelchair Distance (ft) 100' Goal: Stairs Assistance Supervision/Touching Stairs Recommended Devices Two Rails Number of Stairs 5 Goal: Curb Assistance Supervision/Touching Goal: Home Exercise Program Supervision/Touching Assistance Occupational Therapy: Goals Goals to be Completed in (Days 18-21 ) Goal Upper Body Dressing Independent Routine Goal Lower Body Dressing Independent Routine Goal Footwear Status Partial/Moderate Goal Bathing Routine (OT) Supervision/Touching Goal Grooming Routine Independent Goal Toilet Hygiene and Independent Clothing Management Routine Goal Toilet Transfer Routine Independent Goal Functional Transfers for Independent ADL Goal Feeding Routine Independent Nutrition: Goals Intervention Goals 1) Recommend adding consistent carb to diet order if BG escalate 2) Adequate po intake to support lean body mass and hydration status 3) Maintain fluid/electrolyte balance w/ adequate po intake 4) Improve glycemic control w/ adequate po and consistent carb intake in the setting of T2DM 5) Maintain bowel regularity w/ adequate po intake w/o development of diarrhea/constipation Speech: Goals Speech Goal 1 Memory Speech Evaluation Status Goal Moderate 1 Goal 1 Comments Memory Goal, Long-Term: Pt will use compensatory strategies to encode and retrieve 5/5 new items after delay of 20 minutes, Independently, for independence in mobility safety, ADLs and community access. Status: Progressing as expected Memory Goal, Short-term: Pt will use compensatory strategies to encode and retrieve 5/5 new items after delay of 4 minutes, given skilled instruction, Moderate cueing, and extra time. Status: Progressing as expected. Given previous instruction with printed directions , backward chaining and spaced retrieval techniques, patient I'ly recalled 7 step Verbal sequences to stand to walker, and to sit from walker. PREMIUM NOTE INTEREST CALCULATOR CLERK presented 4 pictureds and directed patient to name and make a gesture for each, then cued space retrieval immediately and after 30 seconds, 1 and 2 minutes. After distraction of problem solving task and delays of 4 and 8 miuntes, patient I'ly recalled /. Speech Goal 2 Problem Solving Speech Goal 2 Evaluation Moderate-Severe Status Speech Goal 2 Comments Problem Solving, Long-Term: Long-Term Goal: Pt will use compensatory strategies to solve moderately complex routine problems, for transfer and mobility safety, adaptive dressing, time and money management; with 100% accuracy, Independently. Status: Progressing as expected. Problem Solving, Short-Term: Pt will use compensatory strategies to solve simple routine problems, for transfer and mobility safety, adaptive dressing, time and money management; with 80% accuracy, given skilled instruction, Moderate cueing, and extra time. Status: Progressing as expected. PREMIUM NOTE INTEREST CALCULATOR CLERK presented the [place] [employer] samples and tasks A and B, and instructed and cues patient to use self-talk to direct his path. Patient completed Task A (connect number sequence 1-25) within 90 seconds, with 1 impulsive error, corrected after cue. Patient completed Task B ( connect alternating sequence of number-letter from 1-A to L-12 given moderate cueing to use self -talk to correct frequent impulse to connect [id number], and took 7:45 where >5:00 indicates impairment. Nursing: Goals Bladder Goal independent Bowel Goal independent with toileting Nutrition Goal eat 100% of all meals Medication Goal independent with meds Care Plan: Care Plan ADL's - Improve/Maintain Start: 08/01/19 15:35 Freq: DAILY@0700,1900 Status: Active Target: 08/02/19 Protocol: Activity Type Activity Date Activity User E-Sign Co-Sign Detail Recorded Client Recorded Date Recorded By Document 08/08/19 12:05 [id number] 08/08/19 12:05 [id number] 08/08/19 12:05 PMRU Outcome: ADL's/ADL Transfers Orders/Interventions Occupational Therapy Evaluation & Treatment Device Yes Address Deficits Secondary To: CVA Patient to receive OT 5x/wk for 60-120 Therex min/day Self Care Management Group Therapy Neuromuscular ReEducation UE/LE ADL's with Assist Yes: Independent ADL Transfers with Assist Yes: Independent Toileting: Transfers,Clothing Management Yes: ,Hygeine w/Assist Independent Light Kitchen/Laundry w/Assist Yes: Dependent Progression Toward Outcome/Goals Not Progressing Lack of Progression Comment Pt tolerates therapy well. He continues to fluccuate throughout sessions with his balance and function. Cardiovascular- Improve/Maintain Start: 07/31/19 21:10 Freq: DAILY@0700,1900 Status: Active Target: 08/14/19 Protocol: Activity Type Activity Date Activity User E-Sign Co-Sign Detail Recorded Client Recorded Date Recorded By Document 08/08/19 07:00 [id number] 08/08/19 11:23 [id number] 08/08/19 07:00 PMRU Outcome: Cardiovascular Vital Signs q Shift for 48hrs Then BID Yes Daily Weight Ordered No Current Cardiovascular Outcome/Goal Maintain/ Achieve Baseline HR, BP , Perfusion Maintain/ Improve Perfusion Free of Abnormal Cardiac Symptoms Progression Toward Outcome/Goal Progressing Communication-Improve/Maintain Start: 08/03/19 15:38 Freq: DAILY@0700,1900 Status: Active Target: 08/10/19 Protocol: Activity Type Activity Date Activity User E-Sign Co-Sign Detail Recorded Client Recorded Date Recorded By Document 08/08/19 12:22 [id number] 08/08/19 12:22 [id number] 08/08/19 12:22 PMRU Outcome: Communication/Cognitive Status Current Communication Outcome/Goals Other Other Communication Outcomes/Goals Memory Goal, Long-Term: Pt will use compensatory strategies to encode and retrieve 5/5 new items after delay of 20 minutes, Independently, for independence in mobility safety, ADLs and community access. Status: Progressing as expected Memory Goal, Short-term: Pt will use compensatory strategies to encode and retrieve 5/5 new items after delay of 4 minutes, given skilled instruction, Moderate cueing , and extra time. Status: Progressing as expected. PREMIUM NOTE INTEREST CALCULATOR CLERK assessed memory recall of 4 pictures utilizing memory enhancing strategies with delayed recall time intervals of 1 minute, 2 minutes, 4 minutes and 8 minutes in order to promote carryover and enhance memory for d/c. Pt required moderate verbal cues during the beginning of the task related to assistance with figuring out gestures to create for pictures to assist with recall, however independent with memory strategies by the end of the task. Pt recalled 4 pictures during a 1 minute delay with 75% accuracy, 2 minute delay with 75% accuracy, 4 minute delay with 50% accuracy and 8 minute delay with 75% accuracy. Pt benefited from gesture cue to recall pictures . PREMIUM NOTE INTEREST CALCULATOR CLERK presented check writing worksheet with blank checks printed on the face and the amounts and other information printed on the reverse. Task required patient to copy dollar amounts , dates, and the person or company the check was for; patient prompted to read, repeat the information aloud two times, flip the paper over and repeat aloud again, and then write the information. Patient completed with 80% accuracy, moderate prompting. Patient recalled incorrect dollar amount 1x and required moderate verbal/visual cues to recall other check information. Progression Toward Outcomes/Goals Progressing Outcome/Goals Met Other Outcome/Goals Met Comment Status: Progressing as expected. Given previous instruction with printed directions, backward chaining and spaced retrieval techniques, nirmal Warren recalled 7 step Verbal sequences to stand to walker , and to sit from walker. PREMIUM NOTE INTEREST CALCULATOR CLERK presented 4 pictureds and directed patient to name and make a gesture for each, then cued space retrieval immediately and after 30 seconds, 1 and 2 minutes. After distraction of problem solving task and delays of 4 and 8 miuntes, nirmal Warren recalled 4/4. Discharge Planning - Improve/Maintain Start: 08/03/19 02:09 Freq: DAILY@0700,1900 Status: Active Target: 08/14/19 Protocol: Activity Type Activity Date Activity User E-Sign Co-Sign Detail Recorded Client Recorded Date Recorded By Document 08/08/19 07:00 [id number] [id number] 08/08/19 11:23 [id number] 08/08/19 07:00 PMRU Outcome: Discharge Planning Update Patient Family No: no family present at this time Current Discharge Planning Outcome/Goals Demonstrates Understanding of Discharge Plan Homecare Referral - See Comment Progression Toward Outcome/Goals Progressing Education-Improve/Maintain Start: 07/31/19 21:10 Freq: DAILY@0700,1900 Status: Active Target: 08/14/19 Protocol: Activity Type Activity Date Activity User E-Sign Co-Sign Detail Recorded Client Recorded Date Recorded By Document 08/08/19 07:00 [id number] [id number] 08/08/19 11:23 [id number] 08/08/19 07:00 PMRU Outcome: Education Current Education Outcome/Goals Demonstrate/ Verbalize Understanding of Written Discharge Instructions Demonstrates Skills Encourage Questions Progression Toward Outcome/Goals Progressing Genitourinary-Improve/Maintain Start: 08/02/19 06:55 Freq: DAILY@0700,1900 Status: Active Target: 08/14/19 Protocol: Activity Type Activity Date Activity User E-Sign Co-Sign Detail Recorded Client Recorded Date Recorded By Document 08/08/19 07:00 [id number] 08/08/19 11:23 [id number] 08/08/19 07:00 Outcome: Genitourinary Current Outcome/Goals Maintain/ Achieve Urinary Continence Maintain/ Achieve Adequate Urinary Output Remain Free of Hospital- Acquired UTI Progression Toward Outcome/Goals Progressing Outcome/Goals Met Comment pt up to BR Metabolic Status- Improve/Maintain Start: 07/31/19 21:10 Freq: DAILY@0700,1900 Status: Active Target: 08/14/19 Protocol: Activity Type Activity Date Activity User E-Sign Co-Sign Detail Recorded Client Recorded Date Recorded By Document 08/08/19 07:00 [id number] [id number] 08/08/19 11:23 [id number] 08/08/19 07:00 PMRU Outcome: Metabolic Status Have Fingersticks Been Ordered Yes Fingerstick Order Frequency Q Day Current Metabolic Status Outcome/Goals Maintain/ Improve Metabolic Status Demonstrate Knowledge of Prevention/ Treatment of Metabolic Imbalances Progression Toward Outcome/Goals Progressing Mobility- Improve/Maintain Start: 07/31/19 15:46 Freq: DAILY@0700,1900 Status: Active Target: 08/02/19 Protocol: Activity Type Activity Date Activity User E-Sign Co-Sign Detail Recorded Client Recorded Date Recorded By Document 08/07/19 14:50 [id number] 08/07/19 14:52 [id number] 08/07/19 14:50 PMRU Outcome: Mobility Physical Therapy Evaluation and Yes Treatment Activity OOB with Assistance Yes WBAT Yes NWB No TTWB No Device Yes Assistance Yes Patient to be seen 5x/wk for 60-120 min/ Therex day for: Mobility Training Gait Training Balance Other Other Therapy Comment Family training , discharge planning Current Mobility Outcome/Goals Improve Mobility Status Progression Toward Outcome/Goals Progressing Outcome/Goals Met Improve Mobility Status Bed Mobility Yes: Independent Transfers Yes: Independent with RW Gait x ft Yes: Supervision with RW, 150' W/C Mobility x ft Yes: 150' supervision Up/Down Stairs Yes: Supervision with 2 rails, 4 steps With HEP Yes: Supervision Goal Comment Goals updated to include manual wheel chair mobility Neurological- Improve/Maintain Start: 07/31/19 21:10 Freq: DAILY@0700,1900 Status: Active Target: 08/14/19 Protocol: Activity Type Activity Date Activity User E-Sign Co-Sign Detail Recorded Client Recorded Date Recorded By Document 08/08/19 07:00 [id number] [email or web address] 08/08/19 11:23 [id number] 08/08/19 07:00 PMRU Outcome: Neurological Weakness/Aphasia Weakness Left Side Current Neurological Outcome/Goals Maintain/ Achieve Baseline Neurological Status Improve Neurological Status Prevent Avoidable Neurological Decline Demonstrate Knowledge of Prevention/Tx of Neuro Disorders/ Complication Maintain/ Improve Strength/ROM Progression Toward Outcome/Goals Progressing Rec Therapy- Improve/Maintain Start: 07/31/19 15:42 Freq: DAILY@0700,1900 Status: Active Target: 08/22/19 Protocol: Activity Type Activity Date Activity User E-Sign Co-Sign Detail Recorded Client Recorded Date Recorded By Document 08/01/19 16:33 [id number] [email or web address] 08/01/19 16:34 [id number] 08/01/19 16:33 PMRU Outcome: Recreation Therapy Current Rec Ther Outcome/Goals Meet with Patient Regularly for Support Encourage Leisure Involvement Progression Toward Outcome/Goals Progressing Lack of Progression Comment assessment complete, pt. participated in pet therapy this afternoon. Outcome/Goals Met Complete Rec Therapy Assessment Safety- Improve/Maintain Start: 07/31/19 13:28 Freq: DAILY@0700,1900 Status: Active Target: 08/14/19 Protocol: Activity Type Activity Date Activity User E-Sign Co-Sign Detail Recorded Client Recorded Date Recorded By Document 08/08/19 07:00 [id number] 08/08/19 11:23 [id number] 08/08/19 07:00 PMRU Outcome: Safety Current Safety Outcome/Goals Remain Free of Injury or Harm Cooperates with Safety Measures for Least Restrictive Environment Prevent Falls/ Injury Progression Toward Outcome/Goals Progressing Outcome/Goals Met Comment LEN armemmie - Interdisciplinary Staff Present Purchasing Assistant/Social Work Staff Present: Becky Plummer LMSW Nursing Staff Present: Alicia Borrero, RN OT Staff Present: Joelle Avalos PT Staff Present: Monalisa Almazan Rec Therapy Staff Present: Sabiha Alberta PREMIUM NOTE INTEREST CALCULATOR CLERK Staff Present: Jamshid Lund Note: Length of Stay: 2 1/2 weeks Anticipated Discharge Destination: Home Tentative Discharge Date: 08/22/19 Discharged to: Home
[2019-08-08] MEDS: Enoxaparin(*) 30 MG/0.3 ML SYR SUBCUT SCH (14:18)
[2019-08-08] MEDS: Atorvastatin* 10 MG TAB PO SCH (16:56)
--- NOTE | 2019-08-08 19:30 | PN ---
Progress Note Date of Service: 08/08/19 Note: DAYANNA YATES was visited. Therapy notes read and reviewed. He was discussed in interdisciplinary team rounds. Moving a little better but still freezes and has some balance issues Current Medications: Active Medications Generic Name Dose Route Start Last Admin Trade Name Freq PRN Reason Stop Dose Admin Acetaminophen 650 mg 07/31/19 13:44 Tylenol Tab* PO Q6H PRN FEVER > 101 Al Hydrox/Mg Hydrox/Simethicone 30 ml 07/31/19 13:44 Maalox Plus* PO Q6H PRN INDIGESTION Amlodipine Besylate 5 mg 08/01/19 09:00 08/08/19 09:37 Norvasc Tab* PO 5 mg DAILY RAYMUNDO Administration Aspirin 81 mg 08/01/19 09:00 08/08/19 09:37 Aspirin Ec Tab* PO 81 mg DAILY RAYMUNDO Administration Atorvastatin Calcium 10 mg 07/31/19 17:00 08/08/19 16:56 Lipitor* PO 10 mg 1700 RAYMUNDO Administration Bisacodyl 10 mg 07/31/19 13:44 Dulcolax Supp* DC DAILY PRN CONSTIPATION Carbidopa/Levodopa 1.5 tab 07/31/19 14:00 08/08/19 14:17 Sinemet 25/100 Tab(*) PO 1.5 tab TID RAYMUNDO Administration Clopidogrel Bisulfate 75 mg 08/01/19 09:00 08/08/19 09:38 Plavix Tab* PO 75 mg DAILY RAYMUNDO Administration Docusate Sodium 100 mg 07/31/19 13:44 08/05/19 12:14 Colace Cap* PO 100 mg BID PRN Administration CONSTIPATION Donepezil HCl 5 mg 08/01/19 09:00 08/08/19 09:38 Aricept Tab* PO 5 mg DAILY RAYMUNDO Administration Enoxaparin Sodium 30 mg 07/31/19 14:00 08/08/19 14:18 Lovenox(*) SUBCUT 30 mg Q24H RAYMUNDO Administration Escitalopram Oxalate 10 mg 08/01/19 09:00 08/08/19 09:38 Lexapro * PO 10 mg DAILY RAYMUNDO Administration Glipizide 5 mg 07/31/19 17:00 08/08/19 16:56 Glucotrol Xl* PO 5 mg 0800,1700 RAYMUNDO Administration Hydrochlorothiazide 25 mg 08/01/19 09:00 08/08/19 09:38 Hydrodiuril Tab* PO 25 mg DAILY RAYMUNDO Administration Lisinopril 40 mg 08/01/19 09:00 08/08/19 09:38 Prinivil Tab* PO 40 mg DAILY RAYMUNDO Administration Magnesium Hydroxide 30 ml 07/31/19 13:44 Milk Of Magnzay Liq* PO Q6H PRN CONSTIPATION Metformin HCl 500 mg 07/31/19 17:00 08/08/19 16:56 Glucophage* PO 500 mg 0800,1200,1700 RAYMUNDO Administration Senna 2 tab 07/31/19 13:44 Senokot 8.6 Mg Tab* PO BEDTIME PRN CONSTIPATION Vital Signs: Vital Signs Temp Pulse Resp BP Pulse Ox 97.9 F 82 18 120/64 95 08/08/19 15:54 08/08/19 15:54 08/08/19 17:17 08/08/19 15:54 08/08/19 17:17 Lab Results: Laboratory Results - last 24 hr 08/08/19 08:05 POC Glucose (mg/dL) 162 H Exam: GENERAL: no acute distress. alert and appropriate. LUNGS: clear to auscultation bilaterally HEART: regular rate and rhythm ABDOMEN: + bowel sounds, soft, non-tender and non-distended EXTREMITIES: no edema. Some cogwheeling in RUE. NEUROLOGIC: CN II-XII intact except for some right hearing loss. Has chronic intermittent resting right facial droop that is not present when asked to smile. Motor 5/5 BUE and RLE. Motor LLE hip flexion 4+, knee ext 3, DF 4, EHL 5. Sensation intact x4. Assessment/Plan: 79-year-old man with Parkinson's disease and now left hemiplegia with primarily left leg weakness secondary to stroke. 1. Stroke with left leg weakness. Dual antiplatelet therapy with Plavix and aspirin until 08/26/19, then switch to baby aspirin daily alone. Follow up with Dr. Boland. Continue with statin therapy. He is currently on Lipitor substituted for his normal pravastatin. PT/OT/BATCH UNIT TREATER 2. DVT prophylaxis: Lovenox and VARGAS stockings. 3. Parkinson's disease. Continue with Sinemet 1-1/2 tablets t.i.d. Follow up with Dr. Boland as needed. Had hydrocephalus on acute hospital imaging. Questionable how much this is impacting his current status as he has some incontinence, cognitive impairment and balance issues. He is on DAPT for CVA, so not a good time for considering a spinal tap. 4. Hypertension. Continue with amlodipine, lisinopril and hydrochlorothiazide. 5. Diabetes mellitus. HgbA1c 6.6 at admit. Continue with his current metformin and glipizide. Fingersticks daily without coverage. Healthy heart diet. 6. Dementia/Impaired cognition. Continue with Aricept. Speech therapy. 7. Depression. Continue with escitalopram. 8. Urinary incontinence: s/p prostatectomy but denies use of a pad at home. Timed voids. UA negative 08/01/19. PVRs 130-177. Improving 9. Advance directives: He is a full code. His is his healthcare proxy if he cannot make decisions for himself. 10. Estimated LOS: 08/22/19 08/08/19 19:30
[2019-08-09] MEDS: metFORMIN* 500 MG TAB PO SCH ×3 (08:59→17:01)
[2019-08-09] MEDS: Hydrochlorothiazide TAB* 25 MG PO SCH (09:00)
[2019-08-09] MEDS: Aspirin EC TAB* 81 MG TAB.EC PO SCH (09:00)
[2019-08-09] MEDS: Carbidopa/Levodop 25/100 MG TAB(*) PO SCH ×3 (09:00→21:00)
[2019-08-09] MEDS: amLODIPine TAB* 5 MG PO SCH (09:00)
[2019-08-09] MEDS: Lisinopril TAB* 10 MG PO SCH (09:00)
[2019-08-09] MEDS: Clopidogrel TAB* 75 MG PO SCH (09:01)
[2019-08-09] MEDS: Donepezil TAB* 5 MG PO SCH (09:01)
[2019-08-09] MEDS: Escitalopram * 10 MG TAB PO SCH (09:01)
[2019-08-09] MEDS: glipiZIDE TAB.XL* 5 MG PO SCH ×2 (09:02→17:01)
[2019-08-09] MEDS: Enoxaparin(*) 30 MG/0.3 ML SYR SUBCUT SCH (13:49)
[2019-08-09] MEDS: Atorvastatin* 10 MG TAB PO SCH (17:01)
--- NOTE | 2019-08-09 20:11 | PN ---
Progress Note Date of Service: 08/09/19 Note: DAYANNA YATES was visited. Therapy notes read and reviewed. He has no complaints and is moving a little better. I briefly explained his tentative discharge date with him. Current Medications: Active Medications Generic Name Dose Route Start Last Admin Trade Name Freq PRN Reason Stop Dose Admin Acetaminophen 650 mg 07/31/19 13:44 Tylenol Tab* PO Q6H PRN FEVER > 101 Al Hydrox/Mg Hydrox/Simethicone 30 ml 07/31/19 13:44 Maalox Plus* PO Q6H PRN INDIGESTION Amlodipine Besylate 5 mg 08/01/19 09:00 08/09/19 09:00 Norvasc Tab* PO 5 mg DAILY RAYMUNDO Administration Aspirin 81 mg 08/01/19 09:00 08/09/19 09:00 Aspirin Ec Tab* PO 81 mg DAILY RAYMUNDO Administration Atorvastatin Calcium 10 mg 07/31/19 17:00 08/09/19 17:01 Lipitor* PO 10 mg 1700 RAYMUNDO Administration Bisacodyl 10 mg 07/31/19 13:44 Dulcolax Supp* [place] DAILY PRN CONSTIPATION Carbidopa/Levodopa 1.5 tab 07/31/19 14:00 08/09/19 13:50 Sinemet 25/100 Tab(*) PO 1.5 tab TID RAYMUNDO Administration Clopidogrel Bisulfate 75 mg 08/01/19 09:00 08/09/19 09:01 Plavix Tab* PO 75 mg DAILY RAYMUNDO Administration Docusate Sodium 100 mg 07/31/19 13:44 08/05/19 12:14 Colace Cap* PO 100 mg BID PRN Administration CONSTIPATION Donepezil HCl 5 mg 08/01/19 09:00 08/09/19 09:01 Aricept Tab* PO 5 mg DAILY RAYMUNDO Administration Enoxaparin Sodium 30 mg 07/31/19 14:00 08/09/19 13:49 Lovenox(*) SUBCUT 30 mg Q24H RAYMUNDO Administration Escitalopram Oxalate 10 mg 08/01/19 09:00 08/09/19 09:01 Lexapro * PO 10 mg DAILY RAYMUNDO Administration Glipizide 5 mg 07/31/19 17:00 08/09/19 17:01 Glucotrol Xl* PO 5 mg 0800,1700 RAYMUNDO Administration Hydrochlorothiazide 25 mg 08/01/19 09:00 08/09/19 09:00 Hydrodiuril Tab* PO 25 mg DAILY RAYMUNDO Administration Lisinopril 40 mg 08/01/19 09:00 08/09/19 09:00 Prinivil Tab* PO 40 mg DAILY RAYMUNDO Administration Magnesium Hydroxide 30 ml 07/31/19 13:44 Milk Of Magnzay Liq* PO Q6H PRN CONSTIPATION Metformin HCl 500 mg 07/31/19 17:00 08/09/19 17:01 Glucophage* PO 500 mg 0800,1200,1700 RAYMUNDO Administration Senna 2 tab 07/31/19 13:44 Senokot 8.6 Mg Tab* PO BEDTIME PRN CONSTIPATION Vital Signs: Vital Signs Temp Pulse Resp BP Pulse Ox 97.5 F 73 16 117/60 95 08/09/19 16:42 08/09/19 16:42 08/09/19 16:42 08/09/19 16:42 08/09/19 18:12 Lab Results: Laboratory Results - last 24 hr 08/09/19 07:28 POC Glucose (mg/dL) 119 H Exam: GENERAL: no acute distress. alert and appropriate. LUNGS: clear to auscultation bilaterally HEART: regular rate and rhythm ABDOMEN: + bowel sounds, soft, non-tender and non-distended EXTREMITIES: no edema. Some cogwheeling in RUE. NEUROLOGIC: CN II-XII intact except for some right hearing loss. Has chronic intermittent resting right facial droop that is not present when asked to smile. Motor 5/5 BUE and RLE. Motor LLE hip flexion 4+, knee ext 3, DF 4, EHL 5. Sensation intact x4. Assessment/Plan: 79-year-old man with Parkinson's disease and now left hemiplegia with primarily left leg weakness secondary to stroke. 1. Stroke with left leg weakness. Dual antiplatelet therapy with Plavix and aspirin until 08/26/19, then switch to baby aspirin daily alone. Follow up with Dr. Boland. Continue with statin therapy. He is currently on Lipitor substituted for his normal pravastatin. 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 DVT prophylaxis: Lovenox and VARGAS stockings. 3. Parkinson's disease. Continue with Sinemet 1-1/2 tablets t.i.d. Follow up with Dr. Boland as needed. Had hydrocephalus on acute hospital imaging. Questionable how much this is impacting his current status as he has some incontinence, cognitive impairment and balance issues. He is on DAPT for CVA, so not a good time for considering a spinal tap. 4. Hypertension. Continue with amlodipine, lisinopril and hydrochlorothiazide. 5. Diabetes mellitus. HgbA1c 6.6 at admit. Continue with his current metformin and glipizide. Fingersticks daily without coverage. Healthy heart diet. 6. Dementia/Impaired cognition. Continue with Aricept. Speech therapy. 7. Depression. Continue with escitalopram. 8. Urinary incontinence: s/p prostatectomy but denies use of a pad at home. Timed voids. UA negative 08/01/19. 9. Advance directives: He is a full code. His is his healthcare proxy if he cannot make decisions for himself. 10. Estimated LOS: 08/22/19 08/09/19 20:12
[2019-08-10] MEDS: metFORMIN* 500 MG TAB PO SCH ×3 (07:29→17:06)
[2019-08-10] MEDS: glipiZIDE TAB.XL* 5 MG PO SCH ×2 (07:29→17:06)
[2019-08-10] MEDS: Lisinopril TAB* 10 MG PO SCH (10:24)
[2019-08-10] MEDS: Hydrochlorothiazide TAB* 25 MG PO SCH (10:24)
[2019-08-10] MEDS: amLODIPine TAB* 5 MG PO SCH (10:24)
[2019-08-10] MEDS: Escitalopram * 10 MG TAB PO SCH (10:25)
[2019-08-10] MEDS: Aspirin EC TAB* 81 MG TAB.EC PO SCH (10:25)
[2019-08-10] MEDS: Clopidogrel TAB* 75 MG PO SCH (10:25)
[2019-08-10] MEDS: Donepezil TAB* 5 MG PO SCH (10:25)
[2019-08-10] MEDS: Carbidopa/Levodop 25/100 MG TAB(*) PO SCH ×3 (10:25→20:24)
[2019-08-10] MEDS: Enoxaparin(*) 30 MG/0.3 ML SYR SUBCUT SCH (13:45)
[2019-08-10] MEDS: Atorvastatin* 10 MG TAB PO SCH (17:06)
--- NOTE | 2019-08-10 19:20 | PN ---
Progress Note Date of Service: 08/10/19 Note: DAYANNA YATES was visited. Therapy notes read and reviewed. He has no complaints but notes his left leg still feels weak Current Medications: Active Medications Generic Name Dose Route Start Last Admin Trade Name Freq PRN Reason Stop Dose Admin Acetaminophen 650 mg 07/31/19 13:44 Tylenol Tab* PO Q6H PRN FEVER > 101 Al Hydrox/Mg Hydrox/Simethicone 30 ml 07/31/19 13:44 Maalox Plus* PO Q6H PRN INDIGESTION Amlodipine Besylate 5 mg 08/01/19 09:00 08/10/19 10:24 Norvasc Tab* PO 5 mg DAILY RAYMUNDO Administration Aspirin 81 mg 08/01/19 09:00 08/10/19 10:25 Aspirin Ec Tab* PO 81 mg DAILY RAYMUNDO Administration Atorvastatin Calcium 10 mg 07/31/19 17:00 08/10/19 17:06 Lipitor* PO 10 mg 1700 RAYMUNDO Administration Bisacodyl 10 mg 07/31/19 13:44 Dulcolax Supp* [place] DAILY PRN CONSTIPATION Carbidopa/Levodopa 1.5 tab 07/31/19 14:00 08/10/19 13:44 Sinemet 25/100 Tab(*) PO 1.5 tab TID RAYMUNDO Administration Clopidogrel Bisulfate 75 mg 08/01/19 09:00 08/10/19 10:25 Plavix Tab* PO 75 mg DAILY RAYMUNDO Administration Docusate Sodium 100 mg 07/31/19 13:44 08/05/19 12:14 Colace Cap* PO 100 mg BID PRN Administration CONSTIPATION Donepezil HCl 5 mg 08/01/19 09:00 08/10/19 10:25 Aricept Tab* PO 5 mg DAILY RAYMUNDO Administration Enoxaparin Sodium 30 mg 07/31/19 14:00 08/10/19 13:45 Lovenox(*) SUBCUT 30 mg Q24H RAYMUNDO Administration Escitalopram Oxalate 10 mg 08/01/19 09:00 08/10/19 10:25 Lexapro * PO 10 mg DAILY RAYMUNDO Administration Glipizide 5 mg 07/31/19 17:00 08/10/19 17:06 Glucotrol Xl* PO 5 mg 0800,1700 RAYMUNDO Administration Hydrochlorothiazide 25 mg 08/01/19 09:00 08/10/19 10:24 Hydrodiuril Tab* PO 25 mg DAILY RAYMUNDO Administration Lisinopril 40 mg 08/01/19 09:00 08/10/19 10:24 Prinivil Tab* PO 40 mg DAILY RAYMUNDO Administration Magnesium Hydroxide 30 ml 07/31/19 13:44 Milk Of Magnesia Liq* PO Q6H PRN CONSTIPATION Metformin HCl 500 mg 07/31/19 17:00 08/10/19 17:06 Glucophage* PO 500 mg 0800,1200,1700 RAYMUNDO Administration Senna 2 tab 07/31/19 13:44 Senokot 8.6 Mg Tab* PO BEDTIME PRN CONSTIPATION Vital Signs: Vital Signs Temp Pulse Resp BP Pulse Ox 97.4 F 67 16 130/53 96 08/10/19 17:05 08/10/19 17:05 08/10/19 17:08 08/10/19 17:05 08/10/19 17:08 Lab Results: Laboratory Results - last 24 hr 08/10/19 07:28 POC Glucose (mg/dL) 124 H Exam: GENERAL: no acute distress. alert and appropriate. LUNGS: clear to auscultation bilaterally HEART: regular rate and rhythm ABDOMEN: + bowel sounds, soft, non-tender and non-distended EXTREMITIES: no edema. Some cogwheeling in RUE. NEUROLOGIC: CN II-XII intact except for some right hearing loss. Has chronic intermittent resting right facial droop that is not present when asked to smile. Motor 5/5 BUE and RLE. Motor LLE hip flexion 4+, knee ext 3, DF 4, EHL 5. Sensation intact x4. Assessment/Plan: 79-year-old man with Parkinson's disease and now left hemiplegia with primarily left leg weakness secondary to stroke. 1. Stroke with left leg weakness. Dual antiplatelet therapy with Plavix and aspirin until 08/26/19, then switch to baby aspirin daily alone. Follow up with Dr. Boland. Continue with statin therapy. He is currently on Lipitor substituted for his normal pravastatin. 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 DVT prophylaxis: Lovenox and VARGAS stockings. 3. Parkinson's disease. Continue with Sinemet 1-1/2 tablets t.i.d. Follow up with Dr. Boland as needed. Had hydrocephalus on acute hospital imaging. Questionable how much this is impacting his current status as he has some incontinence, cognitive impairment and balance issues. He is on DAPT for CVA, so not a good time for considering a spinal tap. 4. Hypertension. Continue with amlodipine, lisinopril and hydrochlorothiazide. 5. Diabetes mellitus. HgbA1c 6.6 at admit. Continue with his current metformin and glipizide. Fingersticks daily without coverage. Healthy heart diet. 6. Dementia/Impaired cognition. Continue with Aricept. Speech therapy. 7. Depression. Continue with escitalopram. 8. Urinary incontinence: s/p prostatectomy but denies use of a pad at home. Timed voids. UA negative 08/01/19. 9. Advance directives: He is a full code. His is his healthcare proxy if he cannot make decisions for himself. 10. Estimated LOS: 08/22/19 08/10/19 19:20
[2019-08-11] MEDS: Donepezil TAB* 5 MG PO SCH (09:20)
[2019-08-11] MEDS: Escitalopram * 10 MG TAB PO SCH (09:20)
[2019-08-11] MEDS: Hydrochlorothiazide TAB* 25 MG PO SCH (09:20)
[2019-08-11] MEDS: glipiZIDE TAB.XL* 5 MG PO SCH ×2 (09:20→16:58)
[2019-08-11] MEDS: Lisinopril TAB* 10 MG PO SCH (09:20)
[2019-08-11] MEDS: Aspirin EC TAB* 81 MG TAB.EC PO SCH (09:20)
[2019-08-11] MEDS: Clopidogrel TAB* 75 MG PO SCH (09:20)
[2019-08-11] MEDS: amLODIPine TAB* 5 MG PO SCH (09:20)
[2019-08-11] MEDS: Carbidopa/Levodop 25/100 MG TAB(*) PO SCH ×3 (09:21→21:11)
[2019-08-11] MEDS: metFORMIN* 500 MG TAB PO SCH ×3 (09:21→16:58)
[2019-08-11] MEDS: Enoxaparin(*) 30 MG/0.3 ML SYR SUBCUT SCH (14:36)
--- NOTE | 2019-08-11 16:11 | PN ---
Progress Note Date of Service: 08/11/19 Note: DAYANNA YATES was visited. Therapy notes read and reviewed. He thinks he continues to get stronger and his left leg feels like it is moving better. Current Medications: Active Medications Generic Name Dose Route Start Last Admin Trade Name Freq PRN Reason Stop Dose Admin Acetaminophen 650 mg 07/31/19 13:44 Tylenol Tab* PO Q6H PRN FEVER > 101 Al Hydrox/Mg Hydrox/Simethicone 30 ml 07/31/19 13:44 Maalox Plus* PO Q6H PRN INDIGESTION Amlodipine Besylate 5 mg 08/01/19 09:00 08/11/19 09:20 Norvasc Tab* PO 5 mg DAILY RAYMUNDO Administration Aspirin 81 mg 08/01/19 09:00 08/11/19 09:20 Aspirin Ec Tab* PO 81 mg DAILY RAYMUNDO Administration Atorvastatin Calcium 10 mg 07/31/19 17:00 08/10/19 17:06 Lipitor* PO 10 mg 1700 RAYMUNDO Administration Bisacodyl 10 mg 07/31/19 13:44 Dulcolax Supp* [place] DAILY PRN CONSTIPATION Carbidopa/Levodopa 1.5 tab 07/31/19 14:00 08/11/19 14:34 Sinemet 25/100 Tab(*) PO 1.5 tab TID RAYMUNDO Administration Clopidogrel Bisulfate 75 mg 08/01/19 09:00 08/11/19 09:20 Plavix Tab* PO 75 mg DAILY RAYMUNDO Administration Docusate Sodium 100 mg 07/31/19 13:44 08/05/19 12:14 Colace Cap* PO 100 mg BID PRN Administration CONSTIPATION Donepezil HCl 5 mg 08/01/19 09:00 08/11/19 09:20 Aricept Tab* PO 5 mg DAILY RAYMUNDO Administration Enoxaparin Sodium 30 mg 07/31/19 14:00 08/11/19 14:36 Lovenox(*) SUBCUT 30 mg Q24H RAYMUNDO Administration Escitalopram Oxalate 10 mg 08/01/19 09:00 08/11/19 09:20 Lexapro * PO 10 mg DAILY RAYMUNDO Administration Glipizide 5 mg 07/31/19 17:00 08/11/19 09:20 Glucotrol Xl* PO 5 mg 0800,1700 RAYMUNDO Administration Hydrochlorothiazide 25 mg 08/01/19 09:00 08/11/19 09:20 Hydrodiuril Tab* PO 25 mg DAILY RAYMUNDO Administration Lisinopril 40 mg 08/01/19 09:00 08/11/19 09:20 Prinivil Tab* PO 40 mg DAILY RAYMUNDO Administration Magnesium Hydroxide 30 ml 07/31/19 13:44 Milk Of Magnzay Liq* PO Q6H PRN CONSTIPATION Metformin HCl 500 mg 07/31/19 17:00 08/11/19 12:52 Glucophage* PO 500 mg 0800,1200,1700 RAYMUNDO Administration Senna 2 tab 07/31/19 13:44 Senokot 8.6 Mg Tab* PO BEDTIME PRN CONSTIPATION Vital Signs: Vital Signs Temp Pulse Resp BP Pulse Ox 97.5 F 61 18 117/59 95 08/11/19 15:00 08/11/19 15:00 08/11/19 15:00 08/11/19 15:00 08/11/19 15:00 Lab Results: Laboratory Results - last 24 hr 08/11/19 07:53 POC Glucose (mg/dL) 128 H Exam: GENERAL: no acute distress. alert and appropriate. LUNGS: clear to auscultation bilaterally HEART: regular rate and rhythm ABDOMEN: + bowel sounds, soft, non-tender and non-distended EXTREMITIES: no edema. Some cogwheeling in RUE. NEUROLOGIC: CN II-XII intact except for some right hearing loss. Has chronic intermittent resting right facial droop that is not present when asked to smile. Motor 5/5 BUE and RLE. Motor LLE hip flexion 4+, knee ext 3, DF 4, EHL 5. Sensation intact x4. Assessment/Plan: 79-year-old man with Parkinson's disease and now left hemiplegia with primarily left leg weakness secondary to stroke. 1. Stroke with left leg weakness. Dual antiplatelet therapy with Plavix and aspirin until 08/26/19, then switch to baby aspirin daily alone. Follow up with Dr. Boland. Continue with statin therapy. He is currently on Lipitor substituted for his normal pravastatin. 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 DVT prophylaxis: Lovenox and VARGAS stockings. 3. Parkinson's disease. Continue with Sinemet 1-1/2 tablets t.i.d. Follow up with Dr. Boland as needed. Had hydrocephalus on acute hospital imaging. Questionable how much this is impacting his current status as he has some incontinence, cognitive impairment and balance issues. He is on DAPT for CVA, so not a good time for considering a spinal tap. 4. Hypertension. Continue with amlodipine, lisinopril and hydrochlorothiazide. 5. Diabetes mellitus. HgbA1c 6.6 at admit. Continue with his current metformin and glipizide. Fingersticks daily without coverage. Healthy heart diet. 6. Dementia/Impaired cognition. Continue with Aricept. Speech therapy. 7. Depression. Continue with escitalopram. 8. Urinary incontinence: s/p prostatectomy but denies use of a pad at home. Timed voids. UA negative 08/01/19. 9. Advance directives: He is a full code. His is his healthcare proxy if he cannot make decisions for himself. 10. Estimated LOS: 08/22/19 08/11/19 16:12
[2019-08-11] MEDS: Atorvastatin* 10 MG TAB PO SCH (16:58)
[2019-08-12] MEDS: Clopidogrel TAB* 75 MG PO SCH (08:05)
[2019-08-12] MEDS: Carbidopa/Levodop 25/100 MG TAB(*) PO SCH ×3 (08:05→20:46)
[2019-08-12] MEDS: glipiZIDE TAB.XL* 5 MG PO SCH ×2 (08:05→17:23)
[2019-08-12] MEDS: metFORMIN* 500 MG TAB PO SCH ×3 (08:05→17:23)
[2019-08-12] MEDS: Donepezil TAB* 5 MG PO SCH (08:05)
[2019-08-12] MEDS: Aspirin EC TAB* 81 MG TAB.EC PO SCH (08:05)
[2019-08-12] MEDS: Lisinopril TAB* 10 MG PO SCH (08:05)
[2019-08-12] MEDS: Escitalopram * 10 MG TAB PO SCH (08:05)
[2019-08-12] MEDS: Hydrochlorothiazide TAB* 25 MG PO SCH (08:05)
[2019-08-12] MEDS: amLODIPine TAB* 5 MG PO SCH (08:05)
[2019-08-12] MEDS: Docusate CAP* 100 MG PO PRN (12:13)
[2019-08-12] MEDS: Enoxaparin(*) 30 MG/0.3 ML SYR SUBCUT SCH (14:01)
[2019-08-12] MEDS: Atorvastatin* 10 MG TAB PO SCH (17:23)
--- NOTE | 2019-08-12 20:37 | PN ---
Progress Note Date of Service: 08/12/19 Note: DAYANNA YATES was visited. Therapy notes read and reviewed. He has no complaints tonight. Nurses note he had bradycardia on routine vitals. He has a pacer Current Medications: Active Medications Generic Name Dose Route Start Last Admin Trade Name Freq PRN Reason Stop Dose Admin Acetaminophen 650 mg 07/31/19 13:44 Tylenol Tab* PO Q6H PRN FEVER > 101 Al Hydrox/Mg Hydrox/Simethicone 30 ml 07/31/19 13:44 Maalox Plus* PO Q6H PRN INDIGESTION Amlodipine Besylate 5 mg 08/01/19 09:00 08/12/19 08:05 Norvasc Tab* PO 5 mg DAILY RAYMUNDO Administration Aspirin 81 mg 08/01/19 09:00 08/12/19 08:05 Aspirin Ec Tab* PO 81 mg DAILY RAYMUNDO Administration Atorvastatin Calcium 10 mg 07/31/19 17:00 08/12/19 17:23 Lipitor* PO 10 mg 1700 RAYMUNDO Administration Bisacodyl 10 mg 07/31/19 13:44 Dulcolax Supp* [place] DAILY PRN CONSTIPATION Carbidopa/Levodopa 1.5 tab 07/31/19 14:00 08/12/19 14:00 Sinemet 25/100 Tab(*) PO 1.5 tab TID RAYMUNDO Administration Clopidogrel Bisulfate 75 mg 08/01/19 09:00 08/12/19 08:05 Plavix Tab* PO 75 mg DAILY RAYMUNDO Administration Docusate Sodium 100 mg 07/31/19 13:44 08/12/19 12:13 Colace Cap* PO 100 mg BID PRN Administration CONSTIPATION Donepezil HCl 5 mg 08/01/19 09:00 08/12/19 08:05 Aricept Tab* PO 5 mg DAILY RAYMUNDO Administration Enoxaparin Sodium 30 mg 07/31/19 14:00 08/12/19 14:01 Lovenox(*) SUBCUT 30 mg Q24H RAYMUNDO Administration Escitalopram Oxalate 10 mg 08/01/19 09:00 08/12/19 08:05 Lexapro * PO 10 mg DAILY RAYMUNDO Administration Glipizide 5 mg 07/31/19 17:00 08/12/19 17:23 Glucotrol Xl* PO 5 mg 0800,1700 RAYMUNDO Administration Hydrochlorothiazide 25 mg 08/01/19 09:00 08/12/19 08:05 Hydrodiuril Tab* PO 25 mg DAILY RAYMUNDO Administration Lisinopril 40 mg 08/01/19 09:00 08/12/19 08:05 Prinivil Tab* PO 40 mg DAILY RAYMUNDO Administration Magnesium Hydroxide 30 ml 07/31/19 13:44 Milk Of Magnzay Liq* PO Q6H PRN CONSTIPATION Metformin HCl 500 mg 07/31/19 17:00 08/12/19 17:23 Glucophage* PO 500 mg 0800,1200,1700 RAYMUNDO Administration Senna 2 tab 07/31/19 13:44 Senokot 8.6 Mg Tab* PO BEDTIME PRN CONSTIPATION Vital Signs: Vital Signs Temp Pulse Resp BP Pulse Ox 97.6 F 47 16 121/57 94 08/12/19 16:23 08/12/19 16:23 08/12/19 16:23 08/12/19 16:23 08/12/19 16:23 Lab Results: Laboratory Results - last 24 hr 08/12/19 07:34 POC Glucose (mg/dL) 108 H Exam: GENERAL: no acute distress. alert and appropriate. LUNGS: clear to auscultation bilaterally HEART: irregular rhythm ABDOMEN: + bowel sounds, soft, non-tender and non-distended EXTREMITIES: no edema. Some cogwheeling in RUE. NEUROLOGIC: CN II-XII intact except for some right hearing loss. Has chronic intermittent resting right facial droop that is not present when asked to smile. Motor 5/5 BUE and RLE. Motor LLE hip flexion 4+, knee ext 3, DF 4, EHL 5. Sensation intact x4. Assessment/Plan: 79-year-old man with Parkinson's disease and now left hemiplegia with primarily left leg weakness secondary to stroke. 1. Stroke with left leg weakness. Dual antiplatelet therapy with Plavix and aspirin until 08/26/19, then switch to baby aspirin daily alone. Follow up with Dr. Boland. Continue with statin therapy. He is currently on Lipitor substituted for his normal pravastatin. 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 DVT prophylaxis: Lovenox and VARGAS stockings. 3. Parkinson's disease. Continue with Sinemet 1-1/2 tablets t.i.d. Follow up with Dr. Boland as needed. Had hydrocephalus on acute hospital imaging. Questionable how much this is impacting his current status as he has some incontinence, cognitive impairment and balance issues. He is on DAPT for CVA, so not a good time for considering a spinal tap. 4. Hypertension. Continue with amlodipine, lisinopril and hydrochlorothiazide. 5. Diabetes mellitus. HgbA1c 6.6 at admit. Continue with his current metformin and glipizide. Fingersticks daily without coverage. Healthy heart diet. 6. Dementia/Impaired cognition. Continue with Aricept. Speech therapy. 7. Depression. Continue with escitalopram. 8. Urinary incontinence: s/p prostatectomy but denies use of a pad at home. Timed voids. UA negative 08/01/19. 9. Bradycardia: Asymptomatic, but if continues may need to have pacer interrogated 10. Advance directives: He is a full code. His is his healthcare proxy if he cannot make decisions for himself. 11. Estimated LOS: 08/22/19 08/12/19 20:38
[2019-08-13] MEDS: Lisinopril TAB* 10 MG PO SCH (09:14)
[2019-08-13] MEDS: Clopidogrel TAB* 75 MG PO SCH (09:15)
[2019-08-13] MEDS: metFORMIN* 500 MG TAB PO SCH ×3 (09:15→17:51)
[2019-08-13] MEDS: Aspirin EC TAB* 81 MG TAB.EC PO SCH (09:15)
[2019-08-13] MEDS: amLODIPine TAB* 5 MG PO SCH (09:15)
[2019-08-13] MEDS: Carbidopa/Levodop 25/100 MG TAB(*) PO SCH ×3 (09:17→20:45)
[2019-08-13] MEDS: glipiZIDE TAB.XL* 5 MG PO SCH ×2 (09:17→17:51)
[2019-08-13] MEDS: Hydrochlorothiazide TAB* 25 MG PO SCH (09:18)
[2019-08-13] MEDS: Escitalopram * 10 MG TAB PO SCH (09:18)
[2019-08-13] MEDS: Donepezil TAB* 5 MG PO SCH (09:18)
[2019-08-13] MEDS: Enoxaparin(*) 30 MG/0.3 ML SYR SUBCUT SCH (14:57)
--- NOTE | 2019-08-13 16:25 | PN ---
Progress Note Date of Service: 08/13/19 Note: DAYANNA YATES was visited. Nursing notes read and reviewed. He feels like he is doing pretty well with few complaints. Current Medications: Active Medications Generic Name Dose Route Start Last Admin Trade Name Freq PRN Reason Stop Dose Admin Acetaminophen 650 mg 07/31/19 13:44 Tylenol Tab* PO Q6H PRN FEVER > 101 Al Hydrox/Mg Hydrox/Simethicone 30 ml 07/31/19 13:44 Maalox Plus* PO Q6H PRN INDIGESTION Amlodipine Besylate 5 mg 08/01/19 09:00 08/13/19 09:15 Norvasc Tab* PO 5 mg DAILY RAYMUNDO Administration Aspirin 81 mg 08/01/19 09:00 08/13/19 09:15 Aspirin Ec Tab* PO 81 mg DAILY RAYMUNDO Administration Atorvastatin Calcium 10 mg 07/31/19 17:00 08/12/19 17:23 Lipitor* PO 10 mg 1700 RAYMUNDO Administration Bisacodyl 10 mg 07/31/19 13:44 Dulcolax Supp* [place] DAILY PRN CONSTIPATION Carbidopa/Levodopa 1.5 tab 07/31/19 14:00 08/13/19 14:57 Sinemet 25/100 Tab(*) PO 1.5 tab TID RAYMUNDO Administration Clopidogrel Bisulfate 75 mg 08/01/19 09:00 08/13/19 09:15 Plavix Tab* PO 75 mg DAILY RAYMUNDO Administration Docusate Sodium 100 mg 07/31/19 13:44 08/12/19 12:13 Colace Cap* PO 100 mg BID PRN Administration CONSTIPATION Donepezil HCl 5 mg 08/01/19 09:00 08/13/19 09:18 Aricept Tab* PO 5 mg DAILY RAYMUNDO Administration Enoxaparin Sodium 30 mg 07/31/19 14:00 08/13/19 14:57 Lovenox(*) SUBCUT 30 mg Q24H RAYMUNDO Administration Escitalopram Oxalate 10 mg 08/01/19 09:00 08/13/19 09:18 Lexapro * PO 10 mg DAILY RAYMUNDO Administration Glipizide 5 mg 07/31/19 17:00 08/13/19 09:17 Glucotrol Xl* PO 5 mg 0800,1700 RAYMUNDO Administration Hydrochlorothiazide 25 mg 08/01/19 09:00 08/13/19 09:18 Hydrodiuril Tab* PO 25 mg DAILY RAYMUNDO Administration Lisinopril 40 mg 08/01/19 09:00 08/13/19 09:14 Prinivil Tab* PO 40 mg DAILY RAYMUNDO Administration Magnesium Hydroxide 30 ml 07/31/19 13:44 Milk Of Magnesia Liq* PO Q6H PRN CONSTIPATION Metformin HCl 500 mg 07/31/19 17:00 08/13/19 12:29 Glucophage* PO 500 mg 0800,1200,1700 RAYMUNDO Administration Senna 2 tab 07/31/19 13:44 Senokot 8.6 Mg Tab* PO BEDTIME PRN CONSTIPATION Vital Signs: Vital Signs Temp Pulse Resp BP Pulse Ox 98.2 F 74 16 127/62 95 08/13/19 05:59 08/13/19 05:59 08/13/19 05:59 08/13/19 05:59 08/13/19 08:00 Lab Results: Laboratory Results - last 24 hr 08/13/19 07:40 POC Glucose (mg/dL) 127 H Exam: GENERAL: no acute distress. alert and appropriate. LUNGS: clear to auscultation bilaterally HEART: irregular rhythm ABDOMEN: + bowel sounds, soft, non-tender and non-distended EXTREMITIES: no edema. Some cogwheeling in RUE. NEUROLOGIC: CN II-XII intact except for some right hearing loss. Has chronic intermittent resting right facial droop that is not present when asked to smile. Motor 5/5 BUE and RLE. Motor LLE hip flexion 4+, knee ext 3, DF 4, EHL 5. Sensation intact x4. Assessment/Plan: 79-year-old man with Parkinson's disease and now left hemiplegia with primarily left leg weakness secondary to stroke. 1. Stroke with left leg weakness. Dual antiplatelet therapy with Plavix and aspirin until 08/26/19, then switch to baby aspirin daily alone. Follow up with Dr. Boland. Continue with statin therapy. He is currently on Lipitor substituted for his normal pravastatin. 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 DVT prophylaxis: Lovenox and VARGAS stockings. 3. Parkinson's disease. Continue with Sinemet 1-1/2 tablets t.i.d. Follow up with Dr. Boland as needed. Had hydrocephalus on acute hospital imaging. 4. Hypertension. Continue with amlodipine, lisinopril and hydrochlorothiazide. 5. Diabetes mellitus. HgbA1c 6.6 at admit. Continue with his current metformin and glipizide. Fingersticks daily without coverage. Healthy heart diet. 6. Dementia/Impaired cognition. Continue with Aricept. Speech therapy. 7. Depression. Continue with escitalopram. 8. Urinary incontinence: s/p prostatectomy but denies use of a pad at home. Timed voids. UA negative 08/01/19. 9. Bradycardia: Asymptomatic, but if continues may need to have pacer interrogated 10. Advance directives: He is a full code. His is his healthcare proxy if he cannot make decisions for himself. 11. Estimated LOS: 08/22/19 08/13/19 16:25
[2019-08-13] MEDS: Atorvastatin* 10 MG TAB PO SCH (17:51)
[2019-08-14 05:09] LABS: ABS Basophils 0.1 10^3/ul (0-0.2); ABS Eosinophils 0.3 10^3/ul (0-0.6); ABS Lymphocytes 3.2 10^3/ul (1.0-4.8); ABS Monocytes 0.7 10^3/ul (0-0.8); ABS Neutrophils 4.2 10^3/ul (1.5-7.7); Hematocrit 44 % (42-52); Hemoglobin 14.7 g/dL (14.0-18.0); Mean Corpuscular HGB Conc 34 g/dL (31-36); Mean Corpuscular Hemoglobin 31 pg (27-31); Mean Corpuscular Volume 92 fL (80-94); Mean Platelet Volume 7.9 fL (7.4-10.4); Nucleated Red Blood Cells % 0.1; Platelet Count 183 10^3/uL (150-450); Red Blood Count 4.76 10^6 /uL (4.18-5.48); Red Cell Distribution Width 15 % (10-15); White Blood Count 8.4 10^3/uL (3.5-10.8)
[2019-08-14 05:23] LABS: Albumin 4.1 g/dL (3.2-5.2); Calcium 9.2 mg/dL (8.6-10.3); Potassium 3.8 mmol/L (3.5-5.0); Total Bilirubin 0.9 mg/dL (0.2-1.0)
[2019-08-14 05:29] LABS: Albumin/Globulin Ratio 1.4 (1-3); BUN/Creatinine Ratio 20.6 (8-20); EGFR African American 85.7 (>60); EGFR Non-African American 70.8 (>60); Total Protein 7.1 g/dL (6.4-8.9)
[2019-08-14] MEDS: Aspirin EC TAB* 81 MG TAB.EC PO SCH (08:44)
[2019-08-14] MEDS: Lisinopril TAB* 10 MG PO SCH (08:44)
[2019-08-14] MEDS: Escitalopram * 10 MG TAB PO SCH (08:44)
[2019-08-14] MEDS: Hydrochlorothiazide TAB* 25 MG PO SCH (08:44)
[2019-08-14] MEDS: glipiZIDE TAB.XL* 5 MG PO SCH ×2 (08:44→16:41)
[2019-08-14] MEDS: Carbidopa/Levodop 25/100 MG TAB(*) PO SCH ×3 (08:44→20:18)
[2019-08-14] MEDS: metFORMIN* 500 MG TAB PO SCH ×3 (08:45→16:41)
[2019-08-14] MEDS: amLODIPine TAB* 5 MG PO SCH (08:45)
[2019-08-14] MEDS: Donepezil TAB* 5 MG PO SCH (08:45)
[2019-08-14] MEDS: Clopidogrel TAB* 75 MG PO SCH (08:45)
[2019-08-14] MEDS: Enoxaparin(*) 30 MG/0.3 ML SYR SUBCUT SCH (13:27)
[2019-08-14] MEDS: Atorvastatin* 10 MG TAB PO SCH (16:41)
--- NOTE | 2019-08-14 19:14 | PN ---
Progress Note Date of Service: 08/14/19 Note: DAYANNA YATES was visited. Therapy notes read and reviewed. He did not like getting his blood drawn this am but otherwise no complaints. Current Medications: Active Medications Generic Name Dose Route Start Last Admin Trade Name Freq PRN Reason Stop Dose Admin Acetaminophen 650 mg 07/31/19 13:44 Tylenol Tab* PO Q6H PRN FEVER > 101 Al Hydrox/Mg Hydrox/Simethicone 30 ml 07/31/19 13:44 Maalox Plus* PO Q6H PRN INDIGESTION Amlodipine Besylate 5 mg 08/01/19 09:00 08/14/19 08:45 Norvasc Tab* PO 5 mg DAILY RAYMUNDO Administration Aspirin 81 mg 08/01/19 09:00 08/14/19 08:44 Aspirin Ec Tab* PO 81 mg DAILY RAYMUNDO Administration Atorvastatin Calcium 10 mg 07/31/19 17:00 08/14/19 16:41 Lipitor* PO 10 mg 1700 RAYMUNDO Administration Bisacodyl 10 mg 07/31/19 13:44 Dulcolax Supp* AK DAILY PRN CONSTIPATION Carbidopa/Levodopa 1.5 tab 07/31/19 14:00 08/14/19 13:28 Sinemet 25/100 Tab(*) PO 1.5 tab TID RAYMUNDO Administration Clopidogrel Bisulfate 75 mg 08/01/19 09:00 08/14/19 08:45 Plavix Tab* PO 75 mg DAILY RAYMUNDO Administration Docusate Sodium 100 mg 07/31/19 13:44 08/12/19 12:13 Colace Cap* PO 100 mg BID PRN Administration CONSTIPATION Donepezil HCl 5 mg 08/01/19 09:00 08/14/19 08:45 Aricept Tab* PO 5 mg DAILY RAYMUNDO Administration Enoxaparin Sodium 30 mg 07/31/19 14:00 08/14/19 13:27 Lovenox(*) SUBCUT 30 mg Q24H RAYMUNDO Administration Escitalopram Oxalate 10 mg 08/01/19 09:00 08/14/19 08:44 Lexapro * PO 10 mg DAILY RAYMUNDO Administration Glipizide 5 mg 07/31/19 17:00 08/14/19 16:41 Glucotrol Xl* PO 5 mg 0800,1700 RAYMUNDO Administration Hydrochlorothiazide 25 mg 08/01/19 09:00 08/14/19 08:44 Hydrodiuril Tab* PO 25 mg DAILY RAYMUNDO Administration Lisinopril 40 mg 08/01/19 09:00 08/14/19 08:44 Prinivil Tab* PO 40 mg DAILY RAYMUNDO Administration Magnesium Hydroxide 30 ml 07/31/19 13:44 Milk Of Magnzay Liq* PO Q6H PRN CONSTIPATION Metformin HCl 500 mg 07/31/19 17:00 08/14/19 16:41 Glucophage* PO 500 mg 0800,1200,1700 RAYMUNDO Administration Senna 2 tab 07/31/19 13:44 Senokot 8.6 Mg Tab* PO BEDTIME PRN CONSTIPATION Vital Signs: Vital Signs Temp Pulse Resp BP Pulse Ox 97.7 F 73 16 124/68 96 08/14/19 16:23 08/14/19 16:23 08/14/19 16:23 08/14/19 16:23 08/14/19 18:59 Lab Results: Laboratory Results - last 24 hr 08/14/19 08/14/19 04:53 04:56 WBC 8.4 RBC 4.76 Hgb 14.7 Hct 44 MCV 92 MCH 31 MCHC 34 RDW 15 Plt Count 183 MPV 7.9 Neut % (Auto) 49.5 Lymph % (Auto) 38.0 [place] % (Auto) 8.9 Eos % (Auto) 3.0 Baso % (Auto) 0.6 Absolute Neuts (auto) 4.2 Absolute Lymphs (auto) 3.2 Absolute Monos (auto) 0.7 Absolute Eos (auto) 0.3 Absolute Basos (auto) 0.1 Absolute Nucleated RBC 0.0 Nucleated RBC % 0.1 Sodium 139 Potassium 3.8 Chloride 105 Carbon Dioxide 26 Anion Gap 8 BUN 21 Creatinine 1.02 Est GFR ( Amer) 85.7 Est GFR (Non-Af Amer) 70.8 BUN/Creatinine Ratio 20.6 H Glucose 107 H Calcium 9.2 Total Bilirubin 0.90 AST 20 ALT 23 Alkaline Phosphatase 45 Total Protein 7.1 Albumin 4.1 Globulin 3.0 Albumin/Globulin Ratio 1.4 Exam: GENERAL: no acute distress. alert and appropriate. LUNGS: clear to auscultation bilaterally HEART: irregular rhythm ABDOMEN: + bowel sounds, soft, non-tender and non-distended EXTREMITIES: no edema. Some cogwheeling in RUE. NEUROLOGIC: CN II-XII intact except for some right hearing loss. Has chronic intermittent resting right facial droop that is not present when asked to smile. Motor 5/5 BUE and RLE. Motor LLE hip flexion 4+, knee ext 3, DF 4, EHL 5. Sensation intact x4. Assessment/Plan: 79-year-old man with Parkinson's disease and now left hemiplegia with primarily left leg weakness secondary to stroke. 1. Stroke with left leg weakness. Dual antiplatelet therapy with Plavix and aspirin until 08/26/19, then switch to baby aspirin daily alone. Follow up with Dr. Boland. Continue with statin therapy. He is currently on Lipitor substituted for his normal pravastatin. 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 DVT prophylaxis: Lovenox and VARGAS stockings. 3. Parkinson's disease. Continue with Sinemet 1-1/2 tablets t.i.d. Follow up with Dr. Boland as needed. Had hydrocephalus on acute hospital imaging. 4. Hypertension. Continue with amlodipine, lisinopril and hydrochlorothiazide. 5. Diabetes mellitus. HgbA1c 6.6 at admit. Continue with his current metformin and glipizide. Fingersticks daily without coverage. Healthy heart diet. 6. Dementia/Impaired cognition. Continue with Aricept. Speech therapy. 7. Depression. Continue with escitalopram. 8. Urinary incontinence: s/p prostatectomy but denies use of a pad at home. Timed voids. 9. Bradycardia: Better today 10. Advance directives: He is a full code. His is his healthcare proxy if he cannot make decisions for himself. 11. Estimated LOS: 08/22/19 08/14/19 19:14 08/14/19 19:15
[2019-08-15] MEDS: amLODIPine TAB* 5 MG PO SCH (08:20)
[2019-08-15] MEDS: metFORMIN* 500 MG TAB PO SCH ×3 (08:20→17:41)
[2019-08-15] MEDS: Aspirin EC TAB* 81 MG TAB.EC PO SCH (08:20)
[2019-08-15] MEDS: Carbidopa/Levodop 25/100 MG TAB(*) PO SCH ×3 (08:20→20:47)
[2019-08-15] MEDS: glipiZIDE TAB.XL* 5 MG PO SCH ×2 (08:20→17:41)
[2019-08-15] MEDS: Hydrochlorothiazide TAB* 25 MG PO SCH (08:21)
[2019-08-15] MEDS: Escitalopram * 10 MG TAB PO SCH (08:21)
[2019-08-15] MEDS: Clopidogrel TAB* 75 MG PO SCH (08:21)
[2019-08-15] MEDS: Donepezil TAB* 5 MG PO SCH (08:21)
[2019-08-15] MEDS: Lisinopril TAB* 10 MG PO SCH (08:21)
--- NOTE | 2019-08-15 12:52 | PMRUTEAM ---
PMRU: Team Meeting Current Status: Physical Therapy: Current Status Current Rolling Status Supervision/Touching Current Supine <-> Sit Status Partial/Moderate Current Sit <-> Stand Status Supervision/Touching Current Bed <-> Chair Status Supervision/Touching Transfer/Bed Mobility Rolling Walker Recommended Devices Transfer Mobility Comment CGA- to S x 1 for sit<>Stand, cg to s x 1 for transfers with RW/GB Current Picking Up Object Partial/Moderate Status Current Car Transfer Status Partial/Moderate Current Ambulation Assistance Supervision/Touching Status Ambulation Assistive Device Rolling Walker Ambulation Conditions Two or More Turns Current Ambulation Distance 90' Manual Wheelchair Control/ Bilateral UE's Technique Current Wheelchair Propulsion Partial/Moderate Ability Status Wheelchair Distance (ft) 150' Current Stair Climbing Status Supervision/Touching Stair Climbing Assistive Left Railing,Right Railing Devices Number of Stairs Climbed 3 Current Curb Assistance Status Not attempted Objective Comments Pt requires increased cues throughout session for LLE placement, sequencing and postural correction. Pt demonstrates difficulty with LLE negotiation and safety awareness with all functional tasks requiring frequent VCs for all activities. Occupational Therapy: Current Status Current Upper Body Dressing Setup or Clean-up Assist Status Current Lower Body Dressing Partial/Moderate Status Current Footwear Status Partial/Moderate Current Bathing Status Partial/Moderate Current Grooming Status Setup or Clean-up Assist Current Toileting Status Supervision/Touching Current Toilet Transfer Status Supervision/Touching Current Eating Status Independent Nursing: Current Status Skin Deviations [left hand] Laceration Skin Deviations [Generalized] Other Skin Deviation Description [ healing well left hand] Skin Deviation Description [ none none] Skin Deviation Description [ - Generalized] Bladder Current Status pt incontinent of urine - needs encouragement to change briefs Bowel Current Status Last bowel mvmt 08/07 - continent at all times Nutrition Current Status heart healthy diet - eats 100% of most meals Medication Current Status Pt needs reinforcement with medications Rec Therapy: Current Status Summary of Assessment and Recreation Therapy assessment complete and pt. is Clinical Impression aware of services. Pt. is open to leisure visits and pet therapy while on the unit. Treatment Goals Pt. will engage in leisure activities while on the unit. Treatment Plan Provide recreation therapy services and encourage involvement. Nutrition: Current Status Monitoring Visited pt. Continues to eat well - generally 100 %, although doesn't order large meals. Regardless , meeting needs. Glycemic control is good. Not specifically receiving consistent carbohydrate diet but appears to be ordering appropriately, and his control is meeting targets. Daily BMs now. No further specific intervention anticipated. Speech: Current Status Assessment Patient has met Cognitive-Linguistic goals. RESTAURANT SHIFT LEADER had administered the first 7 Tasks of the Cognitive Linguistic Quick Test on 08/14/19, and completed the final 3 Tasks today 08/15/19. RESTAURANT SHIFT LEADER reviewed tasks and provided feedback on partial results. Patient's Composite Severity Rating is WNL. Recommend Discharge Speech Therapy. Goals: Physical Therapy: Goals Goals to Be Accomplished in ( 18-21 Days) Goal: Rolling Assistance Independent Goal Supine <-> Sit Status Independent Goal Sit <-> Stand Status Supervision/Touching Goal Bed <-> Chair Status Supervision/Touching Transfer/Bed Mobility Rolling Walker Recommended Devices Goal: Picking Up Object Supervision/Touching Goal: Car Transfer Status Supervision/Touching Goal: Ambulation Assistance Supervision/Touching Ambulation Assistive Devices Rolling Walker Ambulation Distance (ft) 150 Goal: Wheelchair Propulsion Not Applicable Ability Wheelchair Distance (ft) 100' Goal: Stairs Assistance Supervision/Touching Stairs Recommended Devices Two Rails Number of Stairs 2 x 5 Goal: Curb Assistance Supervision/Touching Goal: Home Exercise Program Supervision/Touching Assistance Occupational Therapy: Goals Goals to be Completed in (Days 18-21 ) Goal Upper Body Dressing Setup or Clean-up Assist Routine Goal Lower Body Dressing Partial/Moderate Routine Goal Footwear Status Partial/Moderate Goal Bathing Routine (OT) Supervision/Touching Goal Grooming Routine Setup or Clean-up Assist Goal Toilet Hygiene and Supervision/Touching Clothing Management Routine Goal Toilet Transfer Routine Supervision/Touching Goal Functional Transfers for Supervision/Touching ADL Goal Feeding Routine Independent Nutrition: Goals Intervention Goals 1) Adequate po intake to support lean body mass and hydration status 2) Maintain fluid/electrolyte balance w/ adequate po intake 3) Adequate glycemic control in setting of Type 2 DM, per inpatient parameters. 4) Maintain bowel regularity w/ adequate po intake w/o development of diarrhea/constipation Speech: Goals Speech Goal 1 Memory Speech Evaluation Status Goal Moderate 1 Goal 1 Comments Memory Goal, Long-Term: Pt will use compensatory strategies to encode and retrieve 5/5 new items after delay of 20 minutes, Independently, for independence in mobility safety, ADLs and community access. Status: Met. The patient independently verbalized and accurately demonstrated 9 steps for safe transfer: 4-step sequence for safe standing to walker, 2- step sequence for walking with walker, and 3-step sequence for sitting from walker. Recommend Discharge Speech Therapy. Memory Goal, Short-term: Pt will use compensatory strategies to encode and retrieve 5/5 new items after delay of 4 minutes, given skilled instruction, Moderate cueing, and extra time. Status: Met. On Tasks in the Memory domain in the the Cognitive Linguistic Quick Test, patient scored at criteria for Personal Facts and Story Retelling, and exceeded criterion for design Memory. Patient scored below criterion on the Generative Naming task, specifically naming 7 words in category and only 4 words that started with a letter. This one Task score resulted in Language and Memory domain scores just below WNL; other Domain scored were WNL, and patient's Composite Severity Rating is WNL. Recommend Discharge Speech Therapy. Speech Goal 2 Problem Solving Speech Goal 2 Evaluation Moderate-Severe Status Speech Goal 2 Comments Problem Solving, Long-Term: Long-Term Goal: Pt will use compensatory strategies to solve moderately complex routine problems, for transfer and mobility safety, adaptive dressing, time and money management; with 100% accuracy, Independently. Status: Met. The patient completed the Cognitive Linguistic Quick Test, with a Composite Severity Rating of 3 .6/3.5-4.0, Within Normal Limits. The patient independently verbalized and accurately demonstrated 4 step sequence for safe standing to walker, 2 step sequence for walking with walker, and 3 step sequence for sitting from walker. Patient has accurately written checks and completed alternating trail puzzles. Recommend Discharge Speech Therapy. Problem Solving, Short-Term: Pt will use compensatory strategies to solve simple routine problems, for transfer and mobility safety, adaptive dressing, time and money management; with 80% accuracy, given skilled instruction, Moderate cueing, and extra time. Status: Met. The patient completed the Cognitive Linguistic Quick Test, with a Composite Severity Rating of 3 .6/3.5-4.0, Within Normal Limits. Task scores: 08/14/19: Personal Facts 8/8, Age Criterion 8 (Met) Symbol Cancellation 08/01, Age Criterion 10 ( Exceeded) Confrontation Naming 10/, Age Criterion 10 (Met ) Clock Drawing 07/02, Age Criterion 11 (Below) Story retelling 5/10, Age Criterion 5 (Met) Symbol Trails 9/, Age Criterion 6 (Exceeded) Generative Namin/9, Age Criterion 4/9 (Below) 11/26/18: Design Memory: 5/6, Age Criterion 4 (Exceeded) Mazes: 8, Age Criterion 4 (Exceeded) Design Generation: 03/02, Age Criterion 5 ( Exceeded) Cognitive Domain scores are calculated as follows: Attention: 184/160 (4) WNL Memory: 139/141, (3) Mild inpairment Executive: , (4) WNL Language: , (3) Mild impairment Visuospatial: 90/62, (4) WNL Total: Composite Severity Ratin.6/3.5-4.0, Within Normal Limits. Recommend Discharge Speech Therapy. Nursing: Goals Bladder Goal independent Bowel Goal independent with toileting Nutrition Goal eat 100% of all meals Medication Goal independent with meds Care Plan: Care Plan ADL's - Improve/Maintain Start: 08/01/19 15:35 Freq: DAILY@0700,1900 Status: Active Target: 08/02/19 Protocol: Activity Type Activity Date Activity User E-Sign Co-Sign Detail Recorded Client Recorded Date Recorded By Document 08/15/19 11:19 [id number] 08/15/19 11:19 [id number] 08/15/19 11:19 PMRU Outcome: ADL's/ADL Transfers Orders/Interventions Occupational Therapy Evaluation & Treatment Device Yes Address Deficits Secondary To: CVA Patient to receive OT 5x/wk for 60-120 Therex min/day Self Care Management Group Therapy Neuromuscular ReEducation UE/LE ADL's with Assist Yes: Independent ADL Transfers with Assist Yes: Independent Toileting: Transfers,Clothing Management Yes: ,Hygeine w/Assist Independent Light Kitchen/Laundry w/Assist Yes: Dependent Progression Toward Outcome/Goals Not Progressing Lack of Progression Comment Pt continues to use AE for LB dressing with minimal assist. He continues to be limited 2 * decreased safety awareness and sequencing deficits. When pt becomes fatigued, he requires increased assist and cues for safety. Cardiovascular- Improve/Maintain Start: 07/31/19 21:10 Freq: DAILY@0700,1900 Status: Active Target: 08/17/19 Protocol: Activity Type Activity Date Activity User E-Sign Co-Sign Detail Recorded Client Recorded Date Recorded By Document 08/15/19 07:00 [id number] 08/15/19 08:33 [id number] 08/15/19 07:00 PMRU Outcome: Cardiovascular Vital Signs q Shift for 48hrs Then BID Yes Daily Weight Ordered No Current Cardiovascular Outcome/Goal Maintain/ Achieve Baseline HR, BP , Perfusion Improve HR Within Prescribed Parameters Maintain/ Improve Perfusion Free of Abnormal Cardiac Symptoms Progression Toward Outcome/Goal Progressing Communication-Improve/Maintain Start: 08/03/19 15:38 Freq: DAILY@0700,1900 Status: Complete Target: 08/12/19 Protocol: Activity Type Activity Date Activity User E-Sign Co-Sign Detail Recorded Client Recorded Date Recorded By Document 08/14/19 11:31 [id number] 08/14/19 11:32 [id number] 08/14/19 11:31 PMRU Outcome: Communication/Cognitive Status Current Communication Outcome/Goals Other Other Communication Outcomes/Goals Memory Goal, Long-Term: Pt will use compensatory strategies to encode and retrieve 5/5 new items after delay of 20 minutes, Independently, for independence in mobility safety, ADLs and community access. Status: Progressing as expected Progression Toward Outcomes/Goals Progressing Outcome/Goals Met Other Outcome/Goals Met Comment Patient is progressing as expected. RESTAURANT SHIFT LEADER adminisited the first 7 Tasks of the Cognitive Linguistic Quick Shivani. RESTAURANT SHIFT LEADER reviewed tasks and provided feedback on partial results . Cognitive Domain scores will be calculated after completion of remaining 3 Tasks. Personal Facts 04/27, Age Criterion 8 ( Met) Symbol Cancellation /, Age Criterion 10 ( Met) Confrontation Naming 10/10, Age Criterion 10 (Met) Clock Drawing 10/13, Age Criterion 11 ( Below) Story retelling /10, Age Criterion 5 ( Met) Symbol Trails 9 /10, Age Criterion 6 ( Met) Discharge Planning - Improve/Maintain Start: 08/03/19 02:09 Freq: DAILY@0700,1900 Status: Active Target: 08/17/19 Protocol: Activity Type Activity Date Activity User E-Sign Co-Sign Detail Recorded Client Recorded Date Recorded By Document 08/15/19 07:00 [id number] 08/15/19 08:33 [id number] 08/15/19 07:00 PMRU Outcome: Discharge Planning Update Patient Family No Current Discharge Planning Outcome/Goals Demonstrates Understanding of Discharge Plan Homecare Referral - See Comment Progression Toward Outcome/Goals Progressing Education-Improve/Maintain Start: 07/31/19 21:10 Freq: DAILY@0700,1900 Status: Active Target: 08/17/19 Protocol: Activity Type Activity Date Activity User E-Sign Co-Sign Detail Recorded Client Recorded Date Recorded By Document 08/15/19 07:00 [id number] 08/15/19 08:33 [id number] 08/15/19 07:00 PMRU Outcome: Education Current Education Outcome/Goals Demonstrate/ Verbalize Understanding of Written Discharge Instructions Demonstrates Skills Encourage Questions Progression Toward Outcome/Goals Progressing Genitourinary-Improve/Maintain Start: 08/02/19 06:55 Freq: DAILY@0700,1900 Status: Complete Target: 08/14/19 Protocol: Activity Type Activity Date Activity User E-Sign Co-Sign Detail Recorded Client Recorded Date Recorded By Document 08/13/19 07:00 [id number] 08/13/19 07:56 [id number] 08/13/19 07:00 Outcome: Genitourinary Current Outcome/Goals Maintain/ Achieve Urinary Continence Maintain/ Achieve Adequate Urinary Output Remain Free of Hospital- Acquired UTI Progression Toward Outcome/Goals Goals Met Outcome/Goals Met Maintain/ Achieved Adequate Urinary Output Remains Free of Hospital- Acquired UTI Metabolic Status- Improve/Maintain Start: 07/31/19 21:10 Freq: DAILY@ Status: Active Target: 08/17/19 Protocol: Activity Type Activity Date Activity User E-Sign Co-Sign Detail Recorded Client Recorded Date Recorded By Document 08/15/19 07:00 [id number] 08/15/19 08:33 [id number] 08/15/19 07:00 PMRU Outcome: Metabolic Status Have Fingersticks Been Ordered Yes Fingerstick Order Frequency Q Day Current Metabolic Status Outcome/Goals Maintain/ Improve Metabolic Status Demonstrate Knowledge of Prevention/ Treatment of Metabolic Imbalances Progression Toward Outcome/Goals Progressing Mobility- Improve/Maintain Start: 07/31/19 15:46 Freq: DAILY@699,1900 Status: Active Target: 08/02/19 Protocol: Activity Type Activity Date Activity User E-Sign Co-Sign Detail Recorded Client Recorded Date Recorded By Document 08/10/19 14:56 [id number] 08/10/19 14:57 [id number] 08/10/19 14:56 PMRU Outcome: Mobility Physical Therapy Evaluation and Yes Treatment Activity OOB with Assistance Yes WBAT Yes NWB No TTWB No Device Yes Assistance Yes Patient to be seen 5x/wk for 60-120 min/ Therex day for: Mobility Training Gait Training W/C Mobility Balance Other Other Therapy Comment Family training , discharge planning Current Mobility Outcome/Goals Improve Mobility Status Progression Toward Outcome/Goals Progressing Outcome/Goals Met Improve Mobility Status Bed Mobility Yes: Independent Transfers Yes: Independent with RW Gait x ft Yes: Supervision with RW, 150' W/C Mobility x ft Yes: 150' supervision Up/Down Stairs Yes: Supervision with 2 rails, 4 steps With HEP Yes: Supervision Goal Comment Goals updated to include manual wheel chair mobility Neurological- Improve/Maintain Start: 07/31/19 21:10 Freq: DAILY@0700,1900 Status: Active Target: 08/17/19 Protocol: Activity Type Activity Date Activity User E-Sign Co-Sign Detail Recorded Client Recorded Date Recorded By Document 08/15/19 07:00 [id number] 08/15/19 08:33 [id number] 08/15/19 07:00 PMRU Outcome: Neurological Weakness/Aphasia Weakness Current Neurological Outcome/Goals Maintain/ Achieve Baseline Neurological Status Improve Neurological Status Prevent Avoidable Neurological Decline Demonstrate Knowledge of Prevention/Tx of Neuro Disorders/ Complication Maintain/ Improve Strength/ROM Progression Toward Outcome/Goals Progressing Rec Therapy- Improve/Maintain Start: 07/31/19 15:42 Freq: DAILY@0700,1900 Status: Active Target: 08/22/19 Protocol: Activity Type Activity Date Activity User E-Sign Co-Sign Detail Recorded Client Recorded Date Recorded By Document 08/01/19 16:33 [id number] 08/01/19 16:34 [id number] 08/01/19 16:33 PMRU Outcome: Recreation Therapy Current Rec Ther Outcome/Goals Meet with Patient Regularly for Support Encourage Leisure Involvement Progression Toward Outcome/Goals Progressing Lack of Progression Comment assessment complete, pt. participated in pet therapy this afternoon. Outcome/Goals Met Complete Rec Therapy Assessment Safety- Improve/Maintain Start: 07/31/19 13:28 Freq: DAILY@0700,1900 Status: Active Target: 08/17/19 Protocol: Activity Type Activity Date Activity User E-Sign Co-Sign Detail Recorded Client Recorded Date Recorded By Document 08/15/19 07:00 [id number] 08/15/19 08:33 [id number] 08/15/19 07:00 PMRU Outcome: Safety Current Safety Outcome/Goals Remain Free of Injury or Harm Cooperates with Safety Measures for Least Restrictive Environment Prevent Falls/ Injury Progression Toward Outcome/Goals Progressing - Interdisciplinary Staff Present Band Manager/Social Work Staff Present: Becky Plummer LMSW Nursing Staff Present: Olga Luke RN OT Staff Present: Joelle Avalos PT Staff Present: Yvon Díaz PTA Rec Therapy Staff Present: Sabiha Pagan RESTAURANT SHIFT LEADER Staff Present: Jamshid Bryant Medicine Note: Length of Stay: 1 week Anticipated Discharge Destination: home Tentative Discharge Date: 08/22/19 Discharged to: home
[2019-08-15] MEDS: Enoxaparin(*) 30 MG/0.3 ML SYR SUBCUT SCH (14:12)
[2019-08-15] MEDS: Atorvastatin* 10 MG TAB PO SCH (17:41)
--- NOTE | 2019-08-15 18:51 | PN ---
Progress Note Date of Service: 08/15/19 Note: DAYANNA YATES was visited. Therapy notes read and reviewed. He was discussed in interdisciplinary team rounds. He has no complaints. COncerns by staff if he will be able to make it home as he seems to need some assist when he is tired Current Medications: Active Medications Generic Name Dose Route Start Last Admin Trade Name Freq PRN Reason Stop Dose Admin Acetaminophen 650 mg 07/31/19 13:44 Tylenol Tab* PO Q6H PRN FEVER > 101 Al Hydrox/Mg Hydrox/Simethicone 30 ml 07/31/19 13:44 Maalox Plus* PO Q6H PRN INDIGESTION Amlodipine Besylate 5 mg 08/01/19 09:00 08/15/19 08:20 Norvasc Tab* PO 5 mg DAILY RAYMUNDO Administration Aspirin 81 mg 08/01/19 09:00 08/15/19 08:20 Aspirin Ec Tab* PO 81 mg DAILY RAYMUNOD Administration Atorvastatin Calcium 10 mg 07/31/19 17:00 08/15/19 17:41 Lipitor* PO 10 mg 1700 RAYMUNDO Administration Bisacodyl 10 mg 07/31/19 13:44 Dulcolax Supp* [place] DAILY PRN CONSTIPATION Carbidopa/Levodopa 1.5 tab 07/31/19 14:00 08/15/19 14:11 Sinemet 25/100 Tab(*) PO 1.5 tab TID RAYMUNDO Administration Clopidogrel Bisulfate 75 mg 08/01/19 09:00 08/15/19 08:21 Plavix Tab* PO 75 mg DAILY RAYMUNDO Administration Docusate Sodium 100 mg 07/31/19 13:44 08/12/19 12:13 Colace Cap* PO 100 mg BID PRN Administration CONSTIPATION Donepezil HCl 5 mg 08/01/19 09:00 08/15/19 08:21 Aricept Tab* PO 5 mg DAILY RAYMUNDO Administration Enoxaparin Sodium 30 mg 07/31/19 14:00 08/15/19 14:12 Lovenox(*) SUBCUT 30 mg Q24H RAYMUNDO Administration Escitalopram Oxalate 10 mg 08/01/19 09:00 08/15/19 08:21 Lexapro * PO 10 mg DAILY RAYMUNDO Administration Glipizide 5 mg 07/31/19 17:00 08/15/19 17:41 Glucotrol Xl* PO 5 mg 0800,1700 RAYMUNDO Administration Hydrochlorothiazide 25 mg 08/01/19 09:00 08/15/19 08:21 Hydrodiuril Tab* PO 25 mg DAILY RAYMUNDO Administration Lisinopril 40 mg 08/01/19 09:00 08/15/19 08:21 Prinivil Tab* PO 40 mg DAILY RAYMUNDO Administration Magnesium Hydroxide 30 ml 07/31/19 13:44 Milk Of Magnesia Liq* PO Q6H PRN CONSTIPATION Metformin HCl 500 mg 07/31/19 17:00 08/15/19 17:41 Glucophage* PO 500 mg 0800,1200,1700 RAYMUNDO Administration Senna 2 tab 07/31/19 13:44 Senokot 8.6 Mg Tab* PO BEDTIME PRN CONSTIPATION Vital Signs: Vital Signs Temp Pulse Resp BP Pulse Ox 97.3 F 68 20 112/56 96 08/15/19 16:28 08/15/19 16:28 08/15/19 16:28 08/15/19 16:28 08/15/19 18:04 Lab Results: Laboratory Results - last 24 hr 08/15/19 07:44 POC Glucose (mg/dL) 110 H Exam: GENERAL: no acute distress. alert and appropriate. LUNGS: clear to auscultation bilaterally HEART: irregular rhythm ABDOMEN: + bowel sounds, soft, non-tender and non-distended EXTREMITIES: no edema. Some cogwheeling in RUE. NEUROLOGIC: CN II-XII intact except for some right hearing loss. Has chronic intermittent resting right facial droop that is not present when asked to smile. Motor 5/5 BUE and RLE. Motor LLE hip flexion 4+, knee ext 3, DF 4, EHL 5. Sensation intact x4. Assessment/Plan: 79-year-old man with Parkinson's disease and now left hemiplegia with primarily left leg weakness secondary to stroke. 1. Stroke with left leg weakness. Dual antiplatelet therapy with Plavix and aspirin until 08/26/19, then switch to baby aspirin daily alone. Follow up with Dr. Boland. Continue with statin therapy. He is currently on Lipitor substituted for his normal pravastatin. 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 DVT prophylaxis: Lovenox and VARGAS stockings. 3. Parkinson's disease. Continue with Sinemet 1-1/2 tablets t.i.d. Follow up with Dr. Boland as needed. Had hydrocephalus on acute hospital imaging. 4. Hypertension. Continue with amlodipine, lisinopril and hydrochlorothiazide. 5. Diabetes mellitus. HgbA1c 6.6 at admit. Continue with his current metformin and glipizide. Fingersticks daily without coverage. Healthy heart diet. 6. Dementia/Impaired cognition. Continue with Aricept. Speech therapy. 7. Depression. Continue with escitalopram. 8. Urinary incontinence: s/p prostatectomy but denies use of a pad at home. Timed voids. 9. Bradycardia: Better today 10. Advance directives: He is a full code. His is his healthcare proxy if he cannot make decisions for himself. 11. Estimated LOS: 08/22/19 08/15/19 18:52
[2019-08-16] MEDS: amLODIPine TAB* 5 MG PO SCH (08:40)
[2019-08-16] MEDS: Escitalopram * 10 MG TAB PO SCH (08:40)
[2019-08-16] MEDS: glipiZIDE TAB.XL* 5 MG PO SCH ×2 (08:40→16:53)
[2019-08-16] MEDS: Hydrochlorothiazide TAB* 25 MG PO SCH (08:40)
[2019-08-16] MEDS: Clopidogrel TAB* 75 MG PO SCH (08:40)
[2019-08-16] MEDS: Aspirin EC TAB* 81 MG TAB.EC PO SCH (08:40)
[2019-08-16] MEDS: Lisinopril TAB* 10 MG PO SCH (08:40)
[2019-08-16] MEDS: Donepezil TAB* 5 MG PO SCH (08:40)
[2019-08-16] MEDS: Carbidopa/Levodop 25/100 MG TAB(*) PO SCH ×3 (08:41→21:15)
[2019-08-16] MEDS: metFORMIN* 500 MG TAB PO SCH ×3 (08:41→16:53)
[2019-08-16] MEDS: Enoxaparin(*) 30 MG/0.3 ML SYR SUBCUT SCH (14:29)
[2019-08-16] MEDS: Atorvastatin* 10 MG TAB PO SCH (16:53)
--- NOTE | 2019-08-16 17:18 | PN ---
Progress Note Date of Service: 08/16/19 Note: DAYANNA Shoemaker ABELINOSLOAN was visited. Therapy notes read and reviewed. is going to try to take him home. Family training ongoing. Otherwise doing ok with therapy Current Medications: Active Medications Generic Name Dose Route Start Last Admin Trade Name Freq PRN Reason Stop Dose Admin Acetaminophen 650 mg 07/31/19 13:44 Tylenol Tab* PO Q6H PRN FEVER > 101 Al Hydrox/Mg Hydrox/Simethicone 30 ml 07/31/19 13:44 Maalox Plus* PO Q6H PRN INDIGESTION Amlodipine Besylate 5 mg 08/01/19 09:00 08/16/19 08:40 Norvasc Tab* PO 5 mg DAILY RAYMUNDO Administration Aspirin 81 mg 08/01/19 09:00 08/16/19 08:40 Aspirin Ec Tab* PO 81 mg DAILY RAYMUNDO Administration Atorvastatin Calcium 10 mg 07/31/19 17:00 08/16/19 16:53 Lipitor* PO 10 mg 1700 RAYMUNDO Administration Bisacodyl 10 mg 07/31/19 13:44 Dulcolax Supp* [place] DAILY PRN CONSTIPATION Carbidopa/Levodopa 1.5 tab 07/31/19 14:00 08/16/19 14:30 Sinemet 25/100 Tab(*) PO 1.5 tab TID RAYMUNDO Administration Clopidogrel Bisulfate 75 mg 08/01/19 09:00 08/16/19 08:40 Plavix Tab* PO 75 mg DAILY RAYMUNDO Administration Docusate Sodium 100 mg 07/31/19 13:44 08/12/19 12:13 Colace Cap* PO 100 mg BID PRN Administration CONSTIPATION Donepezil HCl 5 mg 08/01/19 09:00 08/16/19 08:40 Aricept Tab* PO 5 mg DAILY RAYMUNDO Administration Enoxaparin Sodium 30 mg 07/31/19 14:00 08/16/19 14:29 Lovenox(*) SUBCUT 30 mg Q24H RAYMUNDO Administration Escitalopram Oxalate 10 mg 08/01/19 09:00 08/16/19 08:40 Lexapro * PO 10 mg DAILY RAYMUNDO Administration Glipizide 5 mg 07/31/19 17:00 08/16/19 16:53 Glucotrol Xl* PO 5 mg 0800,1700 RAYMUNDO Administration Hydrochlorothiazide 25 mg 08/01/19 09:00 08/16/19 08:40 Hydrodiuril Tab* PO 25 mg DAILY RAYMUNDO Administration Lisinopril 40 mg 08/01/19 09:00 08/16/19 08:40 Prinivil Tab* PO 40 mg DAILY RAYMUNDO Administration Magnesium Hydroxide 30 ml 07/31/19 13:44 Milk Of Magnesia Liq* PO Q6H PRN CONSTIPATION Metformin HCl 500 mg 07/31/19 17:00 08/16/19 16:53 Glucophage* PO 500 mg 0800,1200,1700 RAYMUNDO Administration Senna 2 tab 07/31/19 13:44 Senokot 8.6 Mg Tab* PO BEDTIME PRN CONSTIPATION Vital Signs: Vital Signs Temp Pulse Resp BP Pulse Ox 97.4 F 74 18 106/68 98 08/16/19 16:34 08/16/19 16:34 08/16/19 16:34 08/16/19 16:34 08/16/19 16:34 Lab Results: Laboratory Results - last 24 hr 08/16/19 07:38 POC Glucose (mg/dL) 107 H Exam: GENERAL: no acute distress. alert and appropriate. LUNGS: clear to auscultation bilaterally HEART: irregular rhythm ABDOMEN: + bowel sounds, soft, non-tender and non-distended EXTREMITIES: no edema. Some cogwheeling in RUE. NEUROLOGIC: CN II-XII intact except for some right hearing loss. Has chronic intermittent resting right facial droop that is not present when asked to smile. Motor 5/5 BUE and RLE. Motor LLE hip flexion 4+, knee ext 3, DF 4, EHL 5. Sensation intact x4. Assessment/Plan: 79-year-old man with Parkinson's disease and now left hemiplegia with primarily left leg weakness secondary to stroke. 1. Stroke with left leg weakness. Dual antiplatelet therapy with Plavix and aspirin until 08/26/19, then switch to baby aspirin daily alone. Follow up with Dr. Boland. Continue with statin therapy. He is currently on Lipitor substituted for his normal pravastatin. 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 DVT prophylaxis: Lovenox and VARGAS stockings. 3. Parkinson's disease. Continue with Sinemet 1-1/2 tablets t.i.d. Follow up with Dr. Boland as needed. Had hydrocephalus on acute hospital imaging. 4. Hypertension. Continue with amlodipine, lisinopril and hydrochlorothiazide. 5. Diabetes mellitus. HgbA1c 6.6 at admit. Continue with his current metformin and glipizide. Doing better- D/C Fingersticks. Healthy heart diet. 6. Dementia/Impaired cognition. Continue with Aricept. Speech therapy. 7. Depression. Continue with escitalopram. 8. Urinary incontinence: s/p prostatectomy but denies use of a pad at home. Timed voids. 9. Bradycardia: Better 10. Advance directives: He is a full code. His is his healthcare proxy if he cannot make decisions for himself. 11. Estimated LOS: 08/22/19 08/16/19 17:18
--- NOTE | 2019-08-17 05:57 | PN ---
Progress Note Date of Service: 08/17/19 Note: DAYANNA Shoemaker ABELINOSaharaMIKHAIL was visited. Therapy notes read and reviewed. He has no complaints this am. Feels good. Working on endurance and family training Current Medications: Active Medications Generic Name Dose Route Start Last Admin Trade Name Freq PRN Reason Stop Dose Admin Acetaminophen 650 mg 07/31/19 13:44 Tylenol Tab* PO Q6H PRN FEVER > 101 Al Hydrox/Mg Hydrox/Simethicone 30 ml 07/31/19 13:44 Maalox Plus* PO Q6H PRN INDIGESTION Amlodipine Besylate 5 mg 08/01/19 09:00 08/16/19 08:40 Norvasc Tab* PO 5 mg DAILY RAYMUNDO Administration Aspirin 81 mg 08/01/19 09:00 08/16/19 08:40 Aspirin Ec Tab* PO 81 mg DAILY RAYMUNDO Administration Atorvastatin Calcium 10 mg 07/31/19 17:00 08/16/19 16:53 Lipitor* PO 10 mg 1700 RAYMUNDO Administration Bisacodyl 10 mg 07/31/19 13:44 Dulcolax Supp* [place] DAILY PRN CONSTIPATION Carbidopa/Levodopa 1.5 tab 07/31/19 14:00 08/16/19 21:15 Sinemet 25/100 Tab(*) PO 1.5 tab TID RAYMUNDO Administration Clopidogrel Bisulfate 75 mg 08/01/19 09:00 08/16/19 08:40 Plavix Tab* PO 75 mg DAILY RAYMUNDO Administration Docusate Sodium 100 mg 07/31/19 13:44 08/12/19 12:13 Colace Cap* PO 100 mg BID PRN Administration CONSTIPATION Donepezil HCl 5 mg 08/01/19 09:00 08/16/19 08:40 Aricept Tab* PO 5 mg DAILY RAYMUNDO Administration Enoxaparin Sodium 30 mg 07/31/19 14:00 08/16/19 14:29 Lovenox(*) SUBCUT 30 mg Q24H RAYMUNDO Administration Escitalopram Oxalate 10 mg 08/01/19 09:00 08/16/19 08:40 Lexapro * PO 10 mg DAILY RAYMUNDO Administration Glipizide 5 mg 07/31/19 17:00 08/16/19 16:53 Glucotrol Xl* PO 5 mg 0800,1700 RAYMUNDO Administration Hydrochlorothiazide 25 mg 08/01/19 09:00 08/16/19 08:40 Hydrodiuril Tab* PO 25 mg DAILY RAYMUNDO Administration Lisinopril 40 mg 08/01/19 09:00 08/16/19 08:40 Prinivil Tab* PO 40 mg DAILY RAYMUNDO Administration Magnesium Hydroxide 30 ml 07/31/19 13:44 Milk Of Magnesia Liq* PO Q6H PRN CONSTIPATION Metformin HCl 500 mg 07/31/19 17:00 08/16/19 16:53 Glucophage* PO 500 mg 0800,1200,1700 RAYMUNDO Administration Senna 2 tab 07/31/19 13:44 Senokot 8.6 Mg Tab* PO BEDTIME PRN CONSTIPATION Vital Signs: Vital Signs Temp Pulse Resp BP Pulse Ox 97.5 F 63 18 127/74 97 08/17/19 04:40 08/17/19 04:40 08/17/19 04:40 08/17/19 04:40 08/17/19 04:40 Lab Results: Laboratory Results - last 24 hr 08/16/19 07:38 POC Glucose (mg/dL) 107 H Exam: GENERAL: no acute distress. alert and appropriate. LUNGS: clear to auscultation bilaterally HEART: irregular rhythm ABDOMEN: + bowel sounds, soft, non-tender and non-distended EXTREMITIES: no edema. Some cogwheeling in RUE. NEUROLOGIC: CN II-XII intact except for some right hearing loss. Has chronic intermittent resting right facial droop that is not present when asked to smile. Motor 5/5 BUE and RLE. Motor LLE hip flexion 4+, knee ext 3, DF 4, EHL 5. Sensation intact x4. Assessment/Plan: 79-year-old man with Parkinson's disease and now left hemiplegia with primarily left leg weakness secondary to stroke. 1. Stroke with left leg weakness. Dual antiplatelet therapy with Plavix and aspirin until 08/26/19, then switch to baby aspirin daily alone. Follow up with Dr. Boland. Continue with statin therapy. He is currently on Lipitor substituted for his normal pravastatin. 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 DVT prophylaxis: Lovenox and VARGAS stockings. 3. Parkinson's disease. Continue with Sinemet 1-1/2 tablets t.i.d. Follow up with Dr. Boland as needed. Had hydrocephalus on acute hospital imaging. 4. Hypertension. Continue with amlodipine, lisinopril and hydrochlorothiazide. 5. Diabetes mellitus. HgbA1c 6.6 at admit. Continue with his current metformin and glipizide. Doing better- D/C Fingersticks. Healthy heart diet. 6. Dementia/Impaired cognition. Continue with Aricept. Speech therapy. 7. Depression. Continue with escitalopram. 8. Urinary incontinence: s/p prostatectomy but denies use of a pad at home. Timed voids. 9. Bradycardia: Better 10. Advance directives: He is a full code. His is his healthcare proxy if he cannot make decisions for himself. 11. Estimated LOS: 08/22/19 08/17/19 05:57
[2019-08-17] MEDS: metFORMIN* 500 MG TAB PO SCH ×3 (11:03→17:36)
[2019-08-17] MEDS: glipiZIDE TAB.XL* 5 MG PO SCH ×2 (11:03→17:36)
[2019-08-17] MEDS: Aspirin EC TAB* 81 MG TAB.EC PO SCH (11:03)
[2019-08-17] MEDS: Carbidopa/Levodop 25/100 MG TAB(*) PO SCH ×3 (11:04→20:45)
[2019-08-17] MEDS: Lisinopril TAB* 10 MG PO SCH (11:04)
[2019-08-17] MEDS: amLODIPine TAB* 5 MG PO SCH (11:04)
[2019-08-17] MEDS: Escitalopram * 10 MG TAB PO SCH (11:04)
[2019-08-17] MEDS: Clopidogrel TAB* 75 MG PO SCH (11:04)
[2019-08-17] MEDS: Hydrochlorothiazide TAB* 25 MG PO SCH (11:05)
[2019-08-17] MEDS: Donepezil TAB* 5 MG PO SCH (11:06)
[2019-08-17] MEDS: Enoxaparin(*) 30 MG/0.3 ML SYR SUBCUT SCH (14:06)
[2019-08-17] MEDS: Atorvastatin* 10 MG TAB PO SCH (17:36)
[2019-08-18] MEDS: Carbidopa/Levodop 25/100 MG TAB(*) PO SCH ×3 (07:35→20:26)
[2019-08-18] MEDS: amLODIPine TAB* 5 MG PO SCH (07:36)
[2019-08-18] MEDS: metFORMIN* 500 MG TAB PO SCH ×3 (07:36→17:04)
[2019-08-18] MEDS: Lisinopril TAB* 10 MG PO SCH (07:36)
[2019-08-18] MEDS: Hydrochlorothiazide TAB* 25 MG PO SCH (07:37)
[2019-08-18] MEDS: glipiZIDE TAB.XL* 5 MG PO SCH ×2 (07:37→17:04)
[2019-08-18] MEDS: Donepezil TAB* 5 MG PO SCH (07:37)
[2019-08-18] MEDS: Aspirin EC TAB* 81 MG TAB.EC PO SCH (07:37)
[2019-08-18] MEDS: Escitalopram * 10 MG TAB PO SCH (07:37)
[2019-08-18] MEDS: Clopidogrel TAB* 75 MG PO SCH (07:45)
[2019-08-18] MEDS: Enoxaparin(*) 30 MG/0.3 ML SYR SUBCUT SCH (14:14)
--- NOTE | 2019-08-18 16:57 | PN ---
Progress Note Date of Service: 08/18/19 Note: DAYANNA YATES was visited. Therapy notes read and reviewed. He seems to be doing well. His is training to take him home. He is getting a hospital bed which he requires for re-positioning not feasible with an ordinary bed. Current Medications: Active Medications Generic Name Dose Route Start Last Admin Trade Name Freq PRN Reason Stop Dose Admin Acetaminophen 650 mg 07/31/19 13:44 Tylenol Tab* PO Q6H PRN FEVER > 101 Al Hydrox/Mg Hydrox/Simethicone 30 ml 07/31/19 13:44 Maalox Plus* PO Q6H PRN INDIGESTION Amlodipine Besylate 5 mg 08/01/19 09:00 08/18/19 07:36 Norvasc Tab* PO 5 mg DAILY RAYMUNDO Administration Aspirin 81 mg 08/01/19 09:00 08/18/19 07:37 Aspirin Ec Tab* PO 81 mg DAILY RAYMUNDO Administration Atorvastatin Calcium 10 mg 07/31/19 17:00 08/17/19 17:36 Lipitor* PO 10 mg 1700 RAYMUNDO Administration Bisacodyl 10 mg 07/31/19 13:44 Dulcolax Supp* [place] DAILY PRN CONSTIPATION Carbidopa/Levodopa 1.5 tab 07/31/19 14:00 08/18/19 14:13 Sinemet 25/100 Tab(*) PO 1.5 tab TID RAYMUNDO Administration Clopidogrel Bisulfate 75 mg 08/01/19 09:00 08/18/19 07:45 Plavix Tab* PO 75 mg DAILY RAYMUNDO Administration Docusate Sodium 100 mg 07/31/19 13:44 08/12/19 12:13 Colace Cap* PO 100 mg BID PRN Administration CONSTIPATION Donepezil HCl 5 mg 08/01/19 09:00 08/18/19 07:37 Aricept Tab* PO 5 mg DAILY RAYMUNDO Administration Enoxaparin Sodium 30 mg 07/31/19 14:00 08/18/19 14:14 Lovenox(*) SUBCUT 30 mg Q24H RAYMUNDO Administration Escitalopram Oxalate 10 mg 08/01/19 09:00 08/18/19 07:37 Lexapro * PO 10 mg DAILY RAYMUNDO Administration Glipizide 5 mg 07/31/19 17:00 08/18/19 07:37 Glucotrol Xl* PO 5 mg 0800,1700 RAYMUNDO Administration Hydrochlorothiazide 25 mg 08/01/19 09:00 08/18/19 07:37 Hydrodiuril Tab* PO 25 mg DAILY RAYMUNDO Administration Lisinopril 40 mg 08/01/19 09:00 08/18/19 07:36 Prinivil Tab* PO 40 mg DAILY RAYMUNDO Administration Magnesium Hydroxide 30 ml 07/31/19 13:44 Milk Of Magnesia Liq* PO Q6H PRN CONSTIPATION Metformin HCl 500 mg 07/31/19 17:00 08/18/19 12:08 Glucophage* PO 500 mg 0800,1200,1700 RAYMUNDO Administration Senna 2 tab 07/31/19 13:44 Senokot 8.6 Mg Tab* PO BEDTIME PRN CONSTIPATION Vital Signs: Vital Signs Temp Pulse Resp BP Pulse Ox 97.3 F 65 16 141/70 97 08/18/19 05:56 08/18/19 05:56 08/18/19 07:45 08/18/19 05:56 08/18/19 07:45 Exam: GENERAL: no acute distress. alert and appropriate. LUNGS: clear to auscultation bilaterally HEART: irregular rhythm ABDOMEN: + bowel sounds, soft, non-tender and non-distended EXTREMITIES: no edema. Some cogwheeling in RUE. NEUROLOGIC: CN II-XII intact except for some right hearing loss. Has chronic intermittent resting right facial droop that is not present when asked to smile. Motor 5/5 BUE and RLE. Motor LLE hip flexion 4+, knee ext 3, DF 4, EHL 5. Sensation intact x4. Assessment/Plan: 79-year-old man with Parkinson's disease and now left hemiplegia with primarily left leg weakness secondary to stroke. 1. Stroke with left leg weakness. DAPT with Plavix and ASA until 08/26/19, then switch to ASA 81 alone. Follow up with Dr. Boland. Continue with Lipitor instead of his usual pravastatin. 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 DVT prophylaxis: Lovenox and VARGAS stockings. 3. Parkinson's disease. Continue with Sinemet 1-1/2 tablets t.i.d. Follow up with Dr. Boland as needed. Had hydrocephalus on acute hospital imaging. 4. Hypertension. Continue with amlodipine, lisinopril and hydrochlorothiazide. 5. Diabetes mellitus. HgbA1c 6.6 at admit. Continue with his current metformin and glipizide. Doing better- D/C Fingersticks. Healthy heart diet. 6. Dementia/Impaired cognition. Continue with Aricept. Speech therapy. 7. Depression. Continue with escitalopram. 8. Urinary incontinence: s/p prostatectomy but denies use of a pad at home. Timed voids. 9. Bradycardia: Better 10. Advance directives: He is a full code. His is his healthcare proxy 11. Estimated LOS: 08/22/19 08/18/19 16:57
[2019-08-18] MEDS: Atorvastatin* 10 MG TAB PO SCH (17:04)
[2019-08-19] MEDS: glipiZIDE TAB.XL* 5 MG PO SCH ×2 (07:53→17:17)
[2019-08-19] MEDS: metFORMIN* 500 MG TAB PO SCH ×3 (07:53→17:17)
[2019-08-19] MEDS: Aspirin EC TAB* 81 MG TAB.EC PO SCH (09:27)
[2019-08-19] MEDS: Escitalopram * 10 MG TAB PO SCH (09:27)
[2019-08-19] MEDS: Lisinopril TAB* 10 MG PO SCH (09:27)
[2019-08-19] MEDS: Hydrochlorothiazide TAB* 25 MG PO SCH (09:27)
[2019-08-19] MEDS: amLODIPine TAB* 5 MG PO SCH (09:27)
[2019-08-19] MEDS: Carbidopa/Levodop 25/100 MG TAB(*) PO SCH ×3 (09:28→20:20)
[2019-08-19] MEDS: Clopidogrel TAB* 75 MG PO SCH (09:29)
[2019-08-19] MEDS: Donepezil TAB* 5 MG PO SCH (09:29)
[2019-08-19] MEDS: Enoxaparin(*) 30 MG/0.3 ML SYR SUBCUT SCH (14:20)
[2019-08-19] MEDS: Atorvastatin* 10 MG TAB PO SCH (17:17)
--- NOTE | 2019-08-19 21:13 | PN ---
Progress Note Date of Service: 08/19/19 Note: DAYANNA YATES was visited. Therapy notes read and reviewed. He has no specific complaints this evening. Overall feels good. Current Medications: Active Medications Generic Name Dose Route Start Last Admin Trade Name Freq PRN Reason Stop Dose Admin Acetaminophen 650 mg 07/31/19 13:44 Tylenol Tab* PO Q6H PRN FEVER > 101 Al Hydrox/Mg Hydrox/Simethicone 30 ml 07/31/19 13:44 Maalox Plus* PO Q6H PRN INDIGESTION Amlodipine Besylate 5 mg 08/01/19 09:00 08/19/19 09:27 Norvasc Tab* PO 5 mg DAILY RAYMUNDO Administration Aspirin 81 mg 08/01/19 09:00 08/19/19 09:27 Aspirin Ec Tab* PO 81 mg DAILY RAYMUNDO Administration Atorvastatin Calcium 10 mg 07/31/19 17:00 08/19/19 17:17 Lipitor* PO 10 mg 1700 RAYMUNDO Administration Bisacodyl 10 mg 07/31/19 13:44 Dulcolax Supp* [place] DAILY PRN CONSTIPATION Carbidopa/Levodopa 1.5 tab 07/31/19 14:00 08/19/19 20:20 Sinemet 25/100 Tab(*) PO 1.5 tab TID RAYMUNDO Administration Clopidogrel Bisulfate 75 mg 08/01/19 09:00 08/19/19 09:29 Plavix Tab* PO 75 mg DAILY RAYMUNDO Administration Docusate Sodium 100 mg 07/31/19 13:44 08/12/19 12:13 Colace Cap* PO 100 mg BID PRN Administration CONSTIPATION Donepezil HCl 5 mg 08/01/19 09:00 08/19/19 09:29 Aricept Tab* PO 5 mg DAILY RAYMUNDO Administration Enoxaparin Sodium 30 mg 07/31/19 14:00 08/19/19 14:20 Lovenox(*) SUBCUT 30 mg Q24H RAYMUNDO Administration Escitalopram Oxalate 10 mg 08/01/19 09:00 08/19/19 09:27 Lexapro * PO 10 mg DAILY RAYMUNDO Administration Glipizide 5 mg 07/31/19 17:00 08/19/19 17:17 Glucotrol Xl* PO 5 mg 0800,1700 RAYMUNDO Administration Hydrochlorothiazide 25 mg 08/01/19 09:00 08/19/19 09:27 Hydrodiuril Tab* PO 25 mg DAILY RAYMUNDO Administration Lisinopril 40 mg 08/01/19 09:00 08/19/19 09:27 Prinivil Tab* PO 40 mg DAILY RAYMUNDO Administration Magnesium Hydroxide 30 ml 07/31/19 13:44 Milk Of Magnzay Liq* PO Q6H PRN CONSTIPATION Metformin HCl 500 mg 07/31/19 17:00 08/19/19 17:17 Glucophage* PO 500 mg 0800,1200,1700 RAYMUNDO Administration Senna 2 tab 07/31/19 13:44 Senokot 8.6 Mg Tab* PO BEDTIME PRN CONSTIPATION Vital Signs: Vital Signs Temp Pulse Resp BP Pulse Ox 97.5 F 67 16 122/54 96 08/19/19 19:40 08/19/19 19:40 08/19/19 19:40 08/19/19 19:40 08/19/19 19:40 Exam: GENERAL: no acute distress. alert and appropriate. LUNGS: clear to auscultation bilaterally HEART: irregular rhythm ABDOMEN: + bowel sounds, soft, non-tender and non-distended EXTREMITIES: no edema. Some cogwheeling in RUE. NEUROLOGIC: CN II-XII intact except for some right hearing loss. Has chronic intermittent resting right facial droop that is not present when asked to smile. Motor 5/5 BUE and RLE. Motor LLE hip flexion 4+, knee ext 3, DF 4, EHL 5. Sensation intact x4. Assessment/Plan: 79-year-old man with Parkinson's disease and now left hemiplegia with primarily left leg weakness secondary to stroke. 1. Stroke with left leg weakness. DAPT with Plavix and ASA until 08/26/19, then switch to ASA 81 alone. Follow up with Dr. Boland. Continue with Lipitor instead of his usual pravastatin. 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 DVT prophylaxis: Lovenox and VARGAS stockings. 3. Parkinson's disease. Continue with Sinemet 1-1/2 tablets t.i.d. Follow up with Dr. Boland as needed. Had hydrocephalus on acute hospital imaging. 4. Hypertension. Continue with amlodipine, lisinopril and hydrochlorothiazide. 5. Diabetes mellitus. HgbA1c 6.6 at admit. Continue with his current metformin and glipizide. Doing better- D/C Fingersticks. Healthy heart diet. 6. Dementia/Impaired cognition. Continue with Aricept. Speech therapy. 7. Depression. Continue with escitalopram. 8. Urinary incontinence: s/p prostatectomy but denies use of a pad at home. Timed voids. 9. Bradycardia: Better 10. Advance directives: He is a full code. His is his healthcare proxy 11. Estimated LOS: 08/22/19 08/19/19 21:13
[2019-08-20] MEDS: metFORMIN* 500 MG TAB PO SCH ×3 (08:30→17:07)
[2019-08-20] MEDS: glipiZIDE TAB.XL* 5 MG PO SCH ×2 (08:30→17:07)
[2019-08-20] MEDS: Lisinopril TAB* 10 MG PO SCH (10:31)
[2019-08-20] MEDS: Aspirin EC TAB* 81 MG TAB.EC PO SCH (10:31)
[2019-08-20] MEDS: Escitalopram * 10 MG TAB PO SCH (10:32)
[2019-08-20] MEDS: Clopidogrel TAB* 75 MG PO SCH (10:32)
[2019-08-20] MEDS: Carbidopa/Levodop 25/100 MG TAB(*) PO SCH ×3 (10:32→20:26)
[2019-08-20] MEDS: amLODIPine TAB* 5 MG PO SCH (10:32)
[2019-08-20] MEDS: Donepezil TAB* 5 MG PO SCH (10:33)
[2019-08-20] MEDS: Hydrochlorothiazide TAB* 25 MG PO SCH (10:33)
[2019-08-20] MEDS: Enoxaparin(*) 30 MG/0.3 ML SYR SUBCUT SCH (13:58)
[2019-08-20] MEDS: Atorvastatin* 10 MG TAB PO SCH (17:07)
--- NOTE | 2019-08-20 17:56 | PN ---
Progress Note Date of Service: 08/20/19 Note: DAYANNA YATES was visited. Nursing notes read and reviewed. He has no complaints and had a shower today. Current Medications: Active Medications Generic Name Dose Route Start Last Admin Trade Name Freq PRN Reason Stop Dose Admin Acetaminophen 650 mg 07/31/19 13:44 Tylenol Tab* PO Q6H PRN FEVER > 101 Al Hydrox/Mg Hydrox/Simethicone 30 ml 07/31/19 13:44 Maalox Plus* PO Q6H PRN INDIGESTION Amlodipine Besylate 5 mg 08/01/19 09:00 08/20/19 10:32 Norvasc Tab* PO 5 mg DAILY RAYMUNDO Administration Aspirin 81 mg 08/01/19 09:00 08/20/19 10:31 Aspirin Ec Tab* PO 81 mg DAILY RAYMUNDO Administration Atorvastatin Calcium 10 mg 07/31/19 17:00 08/20/19 17:07 Lipitor* PO 10 mg 1700 RAYMUNDO Administration Bisacodyl 10 mg 07/31/19 13:44 Dulcolax Supp* [place] DAILY PRN CONSTIPATION Carbidopa/Levodopa 1.5 tab 07/31/19 14:00 08/20/19 13:57 Sinemet 25/100 Tab(*) PO 1.5 tab TID RAYMUNDO Administration Clopidogrel Bisulfate 75 mg 08/01/19 09:00 08/20/19 10:32 Plavix Tab* PO 75 mg DAILY RAYMUNDO Administration Docusate Sodium 100 mg 07/31/19 13:44 08/12/19 12:13 Colace Cap* PO 100 mg BID PRN Administration CONSTIPATION Donepezil HCl 5 mg 08/01/19 09:00 08/20/19 10:33 Aricept Tab* PO 5 mg DAILY RAYMUNDO Administration Enoxaparin Sodium 30 mg 07/31/19 14:00 08/20/19 13:58 Lovenox(*) SUBCUT 30 mg Q24H RAYMUNDO Administration Escitalopram Oxalate 10 mg 08/01/19 09:00 08/20/19 10:32 Lexapro * PO 10 mg DAILY RAYMUNDO Administration Glipizide 5 mg 07/31/19 17:00 08/20/19 17:07 Glucotrol Xl* PO 5 mg 0800,1700 RAYMUNDO Administration Hydrochlorothiazide 25 mg 08/01/19 09:00 08/20/19 10:33 Hydrodiuril Tab* PO 25 mg DAILY RAYMUNDO Administration Lisinopril 40 mg 08/01/19 09:00 08/20/19 10:31 Prinivil Tab* PO 40 mg DAILY RAYMUNDO Administration Magnesium Hydroxide 30 ml 07/31/19 13:44 Milk Of Magnzay Liq* PO Q6H PRN CONSTIPATION Metformin HCl 500 mg 07/31/19 17:00 08/20/19 17:07 Glucophage* PO 500 mg 0800,1200,1700 RAYMUNDO Administration Senna 2 tab 07/31/19 13:44 Senokot 8.6 Mg Tab* PO BEDTIME PRN CONSTIPATION Vital Signs: Vital Signs Temp Pulse Resp BP Pulse Ox 97.3 F 59 16 133/67 97 08/20/19 05:02 08/20/19 05:02 08/20/19 08:00 08/20/19 05:02 08/20/19 08:00 Exam: GENERAL: no acute distress. alert and appropriate. LUNGS: clear to auscultation bilaterally HEART: irregular rhythm ABDOMEN: + bowel sounds, soft, non-tender and non-distended EXTREMITIES: no edema. Some cogwheeling in RUE. NEUROLOGIC: Has chronic intermittent resting right facial droop. Motor 5/5 BUE and RLE. Motor LLE hip flexion 4+, knee ext 4, DF 4, EHL 5. Sensation intact x4. Assessment/Plan: 79-year-old man with Parkinson's disease and now left hemiplegia with primarily left leg weakness secondary to stroke. 1. Stroke with left leg weakness. DAPT with Plavix and ASA until 08/26/19, then switch to ASA 81 alone. Follow up with Dr. Boland. Continue with Lipitor instead of his usual pravastatin. 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 DVT prophylaxis: Lovenox and VARGAS stockings. 3. Parkinson's disease. Continue with Sinemet 1-1/2 tablets t.i.d. Follow up with Dr. Boland as needed. Had hydrocephalus on acute hospital imaging. 4. Hypertension. Continue with amlodipine, lisinopril and hydrochlorothiazide. 5. Diabetes mellitus. HgbA1c 6.6 at admit. Continue with his current metformin and glipizide. Doing better- D/C Fingersticks. Healthy heart diet. 6. Dementia/Impaired cognition. Continue with Aricept. Speech therapy. 7. Depression. Continue with escitalopram. 8. Urinary incontinence: s/p prostatectomy but denies use of a pad at home. Timed voids. 9. Bradycardia: Better 10. Advance directives: He is a full code. His is his healthcare proxy 11. Estimated LOS: 08/22/19 08/20/19 17:57
[2019-08-21] MEDS: Lisinopril TAB* 10 MG PO SCH (09:10)
[2019-08-21] MEDS: amLODIPine TAB* 5 MG PO SCH (09:10)
[2019-08-21] MEDS: Aspirin EC TAB* 81 MG TAB.EC PO SCH (09:10)
[2019-08-21] MEDS: Carbidopa/Levodop 25/100 MG TAB(*) PO SCH ×3 (09:10→20:25)
[2019-08-21] MEDS: metFORMIN* 500 MG TAB PO SCH ×3 (09:10→16:52)
[2019-08-21] MEDS: Clopidogrel TAB* 75 MG PO SCH (09:10)
[2019-08-21] MEDS: Hydrochlorothiazide TAB* 25 MG PO SCH (09:11)
[2019-08-21] MEDS: Escitalopram * 10 MG TAB PO SCH (09:11)
[2019-08-21] MEDS: glipiZIDE TAB.XL* 5 MG PO SCH ×2 (09:11→16:52)
[2019-08-21] MEDS: Donepezil TAB* 5 MG PO SCH (09:11)
[2019-08-21] MEDS: Enoxaparin(*) 30 MG/0.3 ML SYR SUBCUT SCH (14:30)
[2019-08-21] MEDS: Atorvastatin* 10 MG TAB PO SCH (16:52)
--- NOTE | 2019-08-21 19:56 | PN ---
Progress Note Date of Service: 08/21/19 Note: DAYANNA Shoemaker TRUDY was visited. Therapy notes read and reviewed. For discharge in am. He refused his morning blood draw Current Medications: Active Medications Generic Name Dose Route Start Last Admin Trade Name Freq PRN Reason Stop Dose Admin Acetaminophen 650 mg 07/31/19 13:44 Tylenol Tab* PO Q6H PRN FEVER > 101 Al Hydrox/Mg Hydrox/Simethicone 30 ml 07/31/19 13:44 Maalox Plus* PO Q6H PRN INDIGESTION Amlodipine Besylate 5 mg 08/01/19 09:00 08/21/19 09:10 Norvasc Tab* PO 5 mg DAILY RAYMUNDO Administration Aspirin 81 mg 08/01/19 09:00 08/21/19 09:10 Aspirin Ec Tab* PO 81 mg DAILY RAYMUNDO Administration Atorvastatin Calcium 10 mg 07/31/19 17:00 08/21/19 16:52 Lipitor* PO 10 mg 1700 RAYMUNDO Administration Bisacodyl 10 mg 07/31/19 13:44 Dulcolax Supp* [place] DAILY PRN CONSTIPATION Carbidopa/Levodopa 1.5 tab 07/31/19 14:00 08/21/19 14:30 Sinemet 25/100 Tab(*) PO 1.5 tab TID RAYMUNDO Administration Clopidogrel Bisulfate 75 mg 08/01/19 09:00 08/21/19 09:10 Plavix Tab* PO 75 mg DAILY RAYMUNDO Administration Docusate Sodium 100 mg 07/31/19 13:44 08/12/19 12:13 Colace Cap* PO 100 mg BID PRN Administration CONSTIPATION Donepezil HCl 5 mg 08/01/19 09:00 08/21/19 09:11 Aricept Tab* PO 5 mg DAILY RAYMUNDO Administration Enoxaparin Sodium 30 mg 07/31/19 14:00 08/21/19 14:30 Lovenox(*) SUBCUT 30 mg Q24H RAYMUNDO Administration Escitalopram Oxalate 10 mg 08/01/19 09:00 08/21/19 09:11 Lexapro * PO 10 mg DAILY RAYMUNDO Administration Glipizide 5 mg 07/31/19 17:00 08/21/19 16:52 Glucotrol Xl* PO 5 mg 0800,1700 RAYMUNDO Administration Hydrochlorothiazide 25 mg 08/01/19 09:00 08/21/19 09:11 Hydrodiuril Tab* PO 25 mg DAILY RAYMUNDO Administration Lisinopril 40 mg 08/01/19 09:00 08/21/19 09:10 Prinivil Tab* PO 40 mg DAILY RAYMUNDO Administration Magnesium Hydroxide 30 ml 07/31/19 13:44 Milk Of Magnzay Liq* PO Q6H PRN CONSTIPATION Metformin HCl 500 mg 07/31/19 17:00 08/21/19 16:52 Glucophage* PO 500 mg 0800,1200,1700 RAYMUNDO Administration Senna 2 tab 07/31/19 13:44 Senokot 8.6 Mg Tab* PO BEDTIME PRN CONSTIPATION Vital Signs: Vital Signs Temp Pulse Resp BP Pulse Ox 97.7 F 71 20 115/57 98 08/21/19 16:43 08/21/19 16:43 08/21/19 16:43 08/21/19 16:43 08/21/19 17:34 Exam: GENERAL: no acute distress. alert and appropriate. LUNGS: clear to auscultation bilaterally HEART: irregular rhythm ABDOMEN: + bowel sounds, soft, non-tender and non-distended EXTREMITIES: no edema. Some cogwheeling in RUE. NEUROLOGIC: Has chronic intermittent resting right facial droop. Motor 5/5 BUE and RLE. Motor LLE hip flexion 4+, knee ext 4, DF 4, EHL 5. Sensation intact x4. Assessment/Plan: 79-year-old man with Parkinson's disease and now left hemiplegia with primarily left leg weakness secondary to stroke. 1. Stroke with left leg weakness. DAPT with Plavix and ASA until 08/26/19, then switch to ASA 81 alone. Follow up with Dr. Boland. Continue with Lipitor instead of his usual pravastatin. 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 DVT prophylaxis: Lovenox and VARGAS stockings. 3. Parkinson's disease. Continue with Sinemet 1-1/2 tablets t.i.d. Follow up with Dr. Boland as needed. Had hydrocephalus on acute hospital imaging. 4. Hypertension. Continue with amlodipine, lisinopril and hydrochlorothiazide. 5. Diabetes mellitus. HgbA1c 6.6 at admit. Continue with his current metformin and glipizide. Doing better- D/C Fingersticks. Healthy heart diet. 6. Dementia/Impaired cognition. Continue with Aricept. Speech therapy. 7. Depression. Continue with escitalopram. 8. Urinary incontinence: s/p prostatectomy but denies use of a pad at home. Timed voids. 9. Bradycardia: Better 10. Advance directives: He is a full code. His is his healthcare proxy 11. Estimated LOS: 08/22/19 08/21/19 19:56
[2019-08-22 04:56] VITALS: BP 132/70
[2019-08-22 05:51] LABS: ABS Eosinophils 0.2 10^3/ul (0-0.6); ABS Lymphocytes 2.7 10^3/ul (1.0-4.8); ABS Monocytes 0.7 10^3/ul (0-0.8); ABS Neutrophils 3.8 10^3/ul (1.5-7.7); Hematocrit 44 % (42-52); Lymphocyte % 36.3 %; Mean Corpuscular HGB Conc 34 g/dL (31-36); Mean Corpuscular Hemoglobin 31 pg (27-31); Mean Corpuscular Volume 90 fL (80-94); Mean Platelet Volume 7.5 fL (7.4-10.4); Nucleated Red Blood Cells % 0.2; Platelet Count 185 10^3/uL (150-450); Red Blood Count 4.85 10^6 /uL (4.18-5.48); Red Cell Distribution Width 15 % (10-15); White Blood Count 7.5 10^3/uL (3.5-10.8)
[2019-08-22 06:08] LABS: Albumin 4.2 g/dL (3.2-5.2); Albumin/Globulin Ratio 1.4 (1-3); BUN/Creatinine Ratio 19.2 (8-20); Calcium 9.5 mg/dL (8.6-10.3); EGFR African American 83.8 (>60); EGFR Non-African American 69.3 (>60); Potassium 3.9 mmol/L (3.5-5.0); Total Protein 7.2 g/dL (6.4-8.9)
[2019-08-22] MEDS: amLODIPine TAB* 5 MG PO SCH (10:23)
[2019-08-22] MEDS: Clopidogrel TAB* 75 MG PO SCH (10:23)
[2019-08-22] MEDS: Donepezil TAB* 5 MG PO SCH (10:23)
[2019-08-22] MEDS: Aspirin EC TAB* 81 MG TAB.EC PO SCH (10:23)
[2019-08-22] MEDS: Carbidopa/Levodop 25/100 MG TAB(*) PO SCH (10:23)
[2019-08-22] MEDS: Lisinopril TAB* 10 MG PO SCH (10:23)
[2019-08-22] MEDS: Hydrochlorothiazide TAB* 25 MG PO SCH (10:23)
[2019-08-22] MEDS: glipiZIDE TAB.XL* 5 MG PO SCH (10:23)
[2019-08-22] MEDS: Escitalopram * 10 MG TAB PO SCH (10:23)
[2019-08-22] MEDS: metFORMIN* 500 MG TAB PO SCH ×2 (10:29→13:18)
--- NOTE | 2019-08-22 22:46 | DS ---
CC: Dr. Michael De Los Santos; Dr. Eren Boland * DISCHARGE SUMMARY: DATE OF ADMISSION: 07/31/19 DATE OF DISCHARGE: 08/22/19 DISCHARGE DIAGNOSES: 1. 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 2. Parkinson's disease. 3. Diabetes mellitus. 4. Hypertension. 5. Dementia. 6. Depression. 7. Urinary incontinence after prostatectomy. 8. Possible hydrocephalus. HISTORY OF ILLNESS AND HOSPITAL COURSE: For complete history of the events leading up to his rehab stay, please see the history and physical dictated by Dr. Luiza Calero on 07/31/19. While on the rehab unit, the patient remained largely stable. His ventricles did look big on his CAT scans and as he had incontinence and cognitive impairment, there was some consideration of whether he had hydrocephalus, but it was felt not a good time to do a spinal tap given his recent CVA. The patient otherwise seemed to be fairly stable from medical point of view. He was seen by Physical Therapy and Occupational Therapy and made good gains with those disciplines. He also was seen by Speech Therapy initially and made gains with speech with his strategy of using compensatory strategies to make up for difficulties in memory. With physical therapy at the time of admission, he was dependent for transfers and unable to ambulate. With occupational therapy at the time of admission, the patient required mod assist for upper body dressing. He was dependent for lower body dressing, dependent for toileting, dependent for toilet transfers and needed setup in order to feed himself. By time of discharge, the patient was able to transfer with supervision. He was able to ambulate 150 feet with supervision. He sometimes needed a little assistance getting his legs into bed particularly when he was tired. With occupational therapy at the time of discharge, he still required supervision for toileting and toilet transfers. He required mod assist for lower body dressing. He was set up for upper body dressing, mod assist for getting his shoes and socks on and off. The patient's came in for family training prior to discharge and agreed to take him home. He was discharged to home 08/22/19. DISCHARGE DIET: Consistent carbohydrate. DISCHARGE MEDICATIONS: 1. Amlodipine 5 mg daily. 2. Aspirin 81 mg daily. 3. Sinemet 25/100 one and a half tablet orally 3 times daily. 4. Plavix 75 mg daily for 4 more days, then he will stop the Plavix. 5. Aricept 5 mg daily. 6. Lexapro 10 mg daily. 7. Glucotrol XL 5 mg at 8 a.m. and 5 p.m. 8. Hydrochlorothiazide 25 mg daily. 9. Metformin 500 mg at 8 a.m., 12 noon, and 5 p.m. 10. Lisinopril 40 mg daily. SERVICES AFTER DISCHARGE: Through visiting nurse service, he will have home nursing, home physical therapy. DISPOSITION: To home. CONDITION AT DISCHARGE: Stable. FOLLOWUP: The patient will follow up with his neurologist, Dr. Eren Boland as well as his primary care provider, Dr. Michael De Los Santos. TIME SPENT: Time for this discharge was approximately 50 minutes, greater than half of that was spent with the patient and his explaining post- rehabilitation therapies, services, and equipment. [id number]/CPS #: [id number] MTDD
== END 2019-08-22 14:44 | disposition home health service (06) | DRG 57 ==
LOC: PMRU 13:17
PROVIDERS: ADMIT Physical Medicine & Rehabilitation; ATTEND Physical Medicine & Rehabilitation
PROC: F07Z5ZZ Bed Mobility Treatment (ICD-10-PCS; principal; 2019-07-31)
PROC: F07Z9ZZ Gait Training/Functional Ambulation Treatment (ICD-10-PCS; 2019-07-31)
PROC: F07Z8ZZ Transfer Training Treatment (ICD-10-PCS; 2019-07-31)
PROC: F07Z4ZZ Wheelchair Mobility Treatment (ICD-10-PCS; 2019-07-31)
PROC: F08Z0ZZ Bathing/Showering Techniques Treatment (ICD-10-PCS; 2019-07-31)
PROC: F08Z1ZZ Dressing Techniques Treatment (ICD-10-PCS; 2019-07-31)
PROC: F08Z3ZZ Feeding/Eating Treatment (ICD-10-PCS; 2019-07-31)
PROC: F08Z2ZZ Grooming/Personal Hygiene Treatment (ICD-10-PCS; 2019-07-31)
PROC: F06Z6ZZ Communicative/Cognitive Integration Skills Treatment (ICD-10-PCS; 2019-07-31)
DX: I69.354 Hemiplegia and hemiparesis following cerebral infarction affecting left non-dominant side (principal); G91.9 Hydrocephalus, unspecified; Q21.1 Atrial septal defect; G20 Parkinson's disease; F02.80 Dementia in other diseases classified elsewhere, unspecified severity, without behavioral disturbance, psychotic disturbance, mood disturbance, and anxiety; I69.392 Facial weakness following cerebral infarction; E11.9 Type 2 diabetes mellitus without complications; I10 Essential (primary) hypertension; F32.9 Major depressive disorder, single episode, unspecified; N39.498 Other specified urinary incontinence; I35.0 Nonrheumatic aortic (valve) stenosis; I45.9 Conduction disorder, unspecified; C44.309 Unspecified malignant neoplasm of skin of other parts of face; Z95.0 Presence of cardiac pacemaker; Z85.46 Personal history of malignant neoplasm of prostate; Z79.84 Long term (current) use of oral hypoglycemic drugs; Z79.02 Long term (current) use of antithrombotics/antiplatelets; Z79.82 Long term (current) use of aspirin; Z79.899 Other long term (current) drug therapy; Z88.1 Allergy status to other antibiotic agents; Z88.8 Allergy status to other drugs, medicaments and biological substances; Z91.048 Other nonmedicinal substance allergy status; Z87.891 Personal history of nicotine dependence
CPT/HCPCS: 36415; 80053; 81003; 81015; 85025; A9270-GY; J1650

== ENCOUNTER 2019-09-06 16:30 | Emergency (ER) | payer MEDICARE, OTHER ==
--- NOTE | 2019-09-06 18:43 | ED ---
HPI Cardiac - HPI Summary HPI Summary: The patient is a 79 y/o M presenting to [facility] accompanied by with a chief complaint of varying heart rates for the last few days with concern for pacemaker working. He reports that his HR has been waxing and waning between 48- 60s bpm over the last few days, but he has been asymptomatic without any CP, SOB , or dizziness. They spoke with Dr. Root, who took the patient off of Hydrochlorothiazide and halved the dosage of the Lisinopril he was taking. He began to improve but is now sustaining HR changes. He recently suffered from a stroke on 07/29/19 and was in rehabilitation services until being discharged two weeks ago. Pacemaker placed at least 10 years ago, brand is believed to be [employer]. PMHx: pacemaker, Parkinsons, DM, HLD, HTN. Former smoker, occasional EtOH, no substance use. Medications reviewed. Allergies noted. - History of Current Complaint Chief Complaint: EDGeneral Stated Complaint: HEART RATE LOW PER Time Seen by Provider: 09/06/19 18:25 Hx Obtained From: Patient Onset/Duration: Started Days Ago, Still Present Timing: Intermittent, Lasting Hours Initial Severity: Mild Current Severity: Mild Pain Intensity: 0 Pain Scale Used: 0-10 Numeric Aggravating Factor(s): Nothing Alleviating Factor(s): Nothing Associated Signs and Symptoms: Negative: Chest Pain, Dizziness, Shortness of Breath - Additional Pertinent History Primary Care Physician: [id number] - Allergy/Home Medications Allergies/Adverse Reactions: Allergies Allergy/AdvReac Type Severity Reaction Status Date / Time Adhesive Tape [Paper Tape] Allergy Rash Verified 09/06/19 16:37 cephalexin [From Keflex] Allergy Rash Verified 09/06/19 16:37 levofloxacin [From Levaquin] Allergy Rash Verified 09/06/19 16:37 Home Medications: Home Medications amLODIPine TAB* [Norvasc 5 mg TAB*] 5 mg PO DAILY 09/06/19 [History Confirmed ] glipiZIDE TAB.XL* [Glucotrol XL*] 5 mg PO BID 09/06/19 [History Confirmed ] PMH/Surg Hx/FS Hx/Imm Hx Endocrine/Hematology History: Reports: Hx Diabetes Cardiovascular History: Reports: Hx Auto Implanted Cardiovert Defib, Hx Hypercholesterolemia, Hx Hypertension, Hx Pacemaker/ICD Denies: Hx Angina, Hx Coronary Artery Disease, Hx Myocardial Infarction, Hx Valvular Heart Disease Respiratory History: Reports: Hx Pneumonia Denies: Hx Asthma, Hx Chronic Obstructive Pulmonary Disease (COPD) History: Denies: Hx Renal Disease Musculoskeletal History: Reports: Other Musculoskeletal History - spondylolysis , s/p acdf Sensory History: Reports: Hx Contacts or Glasses Denies: Hx Hearing Aid Opthamlomology History: Reports: Hx Contacts or Glasses Neurological History: Reports: Hx Dementia, Other Neuro Impairments/Disorders - parkinsons Psychiatric History: Reports: Hx Anxiety, Hx Depression - Cancer History Cancer Type, Location and Year: PROSTATE, SKIN - Surgical History Surgical History: Yes Surgery Procedure, Year, and Place: CERVICAL STENOSIS SX - Immunization History Date of Influenza Vaccine: 07/17/2019 Infectious Disease History: No Infectious Disease History: Denies: Traveled Outside the [place] in Last 30 Days - Family History Known Family History: Negative: Diabetes, Blood Disorder - Social History Alcohol Use: Occasionally Hx Substance Use: No Substance Use Type: Reports: None Hx Tobacco Use: Yes Smoking Status (MU): Former Smoker Type: Cigarettes Review of Systems Negative: Chest Pain Negative: Shortness Of Breath Neurological: Other - Negative: dizziness All Other Systems Reviewed And Are Negative: Yes Physical Exam - Summary Physical Exam Summary: Constitutional: Well-developed, Well-nourished, Alert. (-) Distressed Skin: Warm, Dry HENT: Normocephalic; Atraumatic Eyes: Conjunctiva normal Neck: Musculoskeletal ROM normal neck. (-) JVD, (-) Stridor, (-) Tracheal deviation Cardio: Rhythm regular, rate normal, Heart sounds normal; Intact distal pulses; Radial pulses are 2+ and symmetric. (-) Murmur Pulmonary/Chest wall: Effort normal. (-) Respiratory distress, (-) Wheezes, (-) Rales Abd: Soft, (-) tenderness, (-) Distension, (-) Guarding, (-) Rebound Musculoskeletal: (-) Edema Lymph: (-) Cervical adenopathy Neuro: Alert, Oriented x3 Psych: Mood and affect Normal Triage Information Reviewed: Yes Vital Signs On Initial Exam: Initial Vitals Temp Pulse Resp BP Pulse Ox 97.8 F 67 16 138/85 96 09/06/19 16:32 09/06/19 16:32 09/06/19 16:32 09/06/19 16:32 09/06/19 16:32 Vital Signs Reviewed: Yes Procedures - Sedation Patient Received Moderate/Deep Sedation with Procedure: No Diagnostics - Vital Signs Vital Signs Temp Pulse Resp BP Pulse Ox 09/06/19 16:32 97.8 F 67 16 138/85 96 - Laboratory Result Diagrams: 09/06/19 18:35 09/06/19 18:35 Lab Statement: Any lab studies that have been ordered have been reviewed, and results considered in the medical decision making process. - EKG 1644 Cardiac Rate: Other Rate - 63 bpm Summary of EKG Findings: An EKG at 1644 reveals periodically placed rhythm at 63 bpm. RBBB. ED physician has reviewed and interpreted this EKG. Re-Evaluation - Re-Evaluation First Eval Re-Evaluation Time: 19:20 Comment: We discussed results and plan for discharge. Disposition - Course Course Of Treatment: Patient is here with concerns for a malfunctioning pacemaker. Patient has been asymptomatic over the past week but his and home health nurse think his heart rate has been dipping into the 40s. Patient had blood performed which showed no abnormalities. Patient had his pacemaker interrogated and showed a functioning pacemaker with no episodes of bradycardia. Patient was discharged with cardiology follow up. - Diagnoses Provider Diagnoses: Pacemaker reprogramming/check Discharge ED - Sign-Out/Discharge Documenting (check all that apply): Patient Departure - Patient will be discharged home. - Discharge Plan Condition: Stable Disposition: HOME Patient Education Materials: Pacemaker (DC) Referrals: Sergio Silverman MD [Medical Doctor] - 3 Days Michael De Los Santos MD [Primary Care Provider] - 3 Days Additional Instructions: Follow up Dr. Silverman in 1-3 days. Please return to the emergency department for any new or worsening symptoms including chest pain, trouble breathing, you feel like you are about to pass out, or there any other concerns with your pacemaker. - Billing Disposition and Condition Condition: STABLE Disposition: Home - Attestation Statements Document Initiated by Scribe: Yes Documenting Scribe: Abi Aranda Provider For Whom Scribe is Documenting (Include Credential): Dr. Horace Starks MD Scribe Attestation: Abi Ty scribed for Dr. Horace Starks MD on 09/06/19 at 2115. Scribe Documentation Reviewed: Yes Provider Attestation: The documentation as recorded by the scribe, Abi Aranda accurately reflects the service I personally performed and the decisions made by me, Dr. Horace Starks MD Status of Scribe Document: Viewed
[2019-09-06 18:46] LABS: ABS Basophils 0.1 10^3/ul (0-0.2); ABS Eosinophils 0.2 10^3/ul (0-0.6); ABS Lymphocytes 2.4 10^3/ul (1.0-4.8); ABS Monocytes 0.7 10^3/ul (0-0.8); ABS Neutrophils 6.7 10^3/ul (1.5-7.7); Eosinophil % 2.5 %; Hematocrit 46 % (42-52); Hemoglobin 15.6 g/dL (14.0-18.0); Lymphocyte % 23.7 %; Mean Corpuscular HGB Conc 34 g/dL (31-36); Mean Corpuscular Hemoglobin 31 pg (27-31); Mean Corpuscular Volume 91 fL (80-94); Mean Platelet Volume 7.9 fL (7.4-10.4); Nucleated Red Blood Cells % 0.3; Platelet Count 207 10^3/uL (150-450); Red Blood Count 5.05 10^6 /uL (4.18-5.48); Red Cell Distribution Width 15 % (10-15); White Blood Count 10.1 10^3/uL (3.5-10.8)
[2019-09-06 19:02] LABS: Albumin 4.4 g/dL (3.2-5.2); Albumin/Globulin Ratio 1.3 (1-3); BUN/Creatinine Ratio 17.6 (8-20); Calcium 9.5 mg/dL (8.6-10.3); EGFR African American 85.7 (>60); EGFR Non-African American 70.8 (>60); Globulin 3.5 g/dL (2-4); Magnesium 2.3 mg/dL (1.9-2.7); Potassium 3.9 mmol/L (3.5-5.0); Total Bilirubin 0.9 mg/dL (0.2-1.0); Total Protein 7.9 g/dL (6.4-8.9)
[2019-09-06 19:42] VITALS: BP 140/70
== END 2019-09-06 19:39 | disposition home or self-care (01) ==
LOC: ED 16:30
DX: Z45.018 Encounter for adjustment and management of other part of cardiac pacemaker (principal); Z86.73 Personal history of transient ischemic attack (TIA), and cerebral infarction without residual deficits; G20 Parkinson's disease; E78.5 Hyperlipidemia, unspecified; E78.00 Pure hypercholesterolemia, unspecified; I10 Essential (primary) hypertension; Z87.891 Personal history of nicotine dependence; Z79.899 Other long term (current) drug therapy; Z85.828 Personal history of other malignant neoplasm of skin; Z85.46 Personal history of malignant neoplasm of prostate; R94.31 Abnormal electrocardiogram [ECG] [EKG]
CPT/HCPCS: 36415; 80053; 83735; 84484; 85025; 93005; 99283

== ENCOUNTER 2022-04-14 11:18 | Inpatient (IN) ==
[2022-04-14 12:05] LABS: ABS Basophils 0.1 10^3/ul (0-0.2); ABS Eosinophils 0.3 10^3/ul (0-0.6); ABS Lymphocytes 2.2 10^3/ul (1.0-4.8); ABS Neutrophils 6.4 10^3/ul (1.5-7.7); Hematocrit 43 % (42-52); Hemoglobin 14.6 g/dL (14.0-18.0); Lymphocyte % 22.5 %; Mean Corpuscular HGB Conc 34 g/dL (31-36); Mean Corpuscular Hemoglobin 30 pg (27-31); Mean Corpuscular Volume 88 fL (80-94); Mean Platelet Volume 8.2 fL (7.4-10.4); Platelet Count 247 10^3/uL (150-450); Red Blood Count 4.89 10^6 /uL (4.18-5.48); Red Cell Distribution Width 15 % (10-15)
[2022-04-14 12:38] LABS: C Reactive Protein 12.93 mg/L (<8.01); Calcium 9.3 mg/dL (8.6-10.3); Potassium 3.9 mmol/L (3.5-5.0); eGFR CKD-EPI 87.5 (>60)
[2022-04-14 13:56] LABS: Urine Appearance Clear; Urine Color Yellow
[2022-04-14 14:05] LABS: Urine Blood Negative (Negative); Urine Ketones Negative (Negative); Urine Nitrite Negative (Negative); Urine Protein 1+ (30 mg/dL) (Negative); Urine Urobilinogen 0.2 (Negative) (Negative); Urine pH 6.5 (5.0-9.0)
[2022-04-14 14:06] LABS: Urine Bilirubin Negative (Negative); Urine Glucose Trace (100mg/dL) (Negative)
[2022-04-14 14:42] LABS: Urine Specific Gravity 1.024 (1.002-1.030)
[2022-04-14 14:54] LABS: Urine Bacteria Absent (Absent); Urine Red Blood Cell Trace(0-2/hpf) (Absent); Urine White Blood Cell Trace(0-5/hpf) (Absent)
[2022-04-14] MEDS ORDERED: Al Hydrox/Mg Hydrox/Simet LIQ 30 ML UDC PO PRN (16:44)
[2022-04-14] MEDS ORDERED: NS 0.9% 1000 ml BAG 1,000 ML IV SCH ×2 (16:45→18:28)
[2022-04-14] MEDS: Enoxaparin 40 MG/0.4 ML SYR SUBCUT SCH (17:27)
[2022-04-14 19:17] LABS: Magnesium 2.2 mg/dL (1.9-2.7)
[2022-04-14 21:08] LABS: TSH Ultra Thyroid Stim Horm 1.39 mcIU/mL (0.34-5.60)
[2022-04-14] MEDS: Carbidopa/Levodop 25/100 MG TAB PO SCH (21:24)
[2022-04-15 05:37] LABS: ABS Eosinophils 0.4 10^3/ul (0-0.6); ABS Monocytes 0.9 10^3/ul (0-0.8); Eosinophil % 5.3 %; Hematocrit 42 % (42-52); Mean Corpuscular HGB Conc 34 g/dL (31-36); Mean Corpuscular Hemoglobin 30 pg (27-31); Mean Corpuscular Volume 88 fL (80-94); Nucleated Red Blood Cells % 0.1; Platelet Count 225 10^3/uL (150-450); Red Blood Count 4.74 10^6 /uL (4.18-5.48); Red Cell Distribution Width 15 % (10-15); White Blood Count 7.3 10^3/uL (3.5-10.8)
[2022-04-15 05:52] LABS: Calcium 8.6 mg/dL (8.6-10.3); Potassium 3.7 mmol/L (3.5-5.0); eGFR CKD-EPI 92.9 (>60)
[2022-04-15] MEDS ORDERED: Potassium Chlor 20 meq TAB.ER PO ONE ×2 (07:39)
[2022-04-15] MEDS: Carbidopa/Levodop 25/100 MG TAB PO SCH ×4 (08:18→20:57)
[2022-04-15] MEDS ORDERED: Dextrose 50% Syringe 50 ml 25 GM/50 ML SYRINGE IV PUSH PRN (11:18)
[2022-04-15] MEDS: Enoxaparin 40 MG/0.4 ML SYR SUBCUT SCH (16:42)
[2022-04-16 06:39] LABS: Calcium 8.9 mg/dL (8.6-10.3); Magnesium 2.1 mg/dL (1.9-2.7); Potassium 3.9 mmol/L (3.5-5.0)
[2022-04-16] MEDS: Carbidopa/Levodop 25/100 MG TAB PO SCH ×2 (08:35→12:15)
[2022-04-16 11:07] VITALS: BP 137/73
[2022-04-16] MEDS ORDERED: COVID-19 VACCINE, TRIS(PFIZER)/PF 30 MCG/0.3 ML IM ONE (15:00)
== END 2022-04-16 15:05 | DRG 93 ==
LOC: ED 11:18 → EDHOLD 16:37 → MED 19:29
PROVIDERS: ADMIT Internal Medicine; ATTEND Internal Medicine